=== PATIENT | male | born 1975 | race Caucasian/White ===

== ENCOUNTER 2020-03-13 14:24 | Outpatient (REF) | payer MEDICAID, SELFPAY | END 2020-03-13 14:25 | disposition home or self-care (01) | LOC: HO.LAB 14:24 | PROVIDERS: Visit Provider Internal Medicine | DX: Z20.828 Contact with and (suspected) exposure to other viral communicable diseases (principal) | CPT/HCPCS: C9803; U0003 ==

== ENCOUNTER 2020-06-29 17:29 | Emergency (ER) | payer MEDICAID, SELFPAY ==
--- NOTE | ~2020-06-29 | XR_ITS ---
EXAMINATION: XR ABDOMEN KUB CLINICAL INDICATION: Constipation COMPARISON: None TECHNIQUE: AP view of the abdomen. FINDINGS: The bowel gas pattern is normal with no evidence of ileus or obstruction. No unusual soft tissue calcifications are noted. The bones are unremarkable. XR/XR KUB IMPRESSION: Nonobstructed abdominal bowel gas pattern. Minimal stool burden.
--- NOTE | ~2020-06-29 | US_ITS ---
EXAMINATION: US SCROTUM CLINICAL INFORMATION: Decreased testicular sensation. COMPARISON: None TECHNIQUE: A sonogram of the scrotum was performed assessing solares-scale appearance and color Doppler flow. Spectral Doppler analysis of the arterial and venous flow were performed in the testes bilaterally. FINDINGS: RIGHT: Right testicle measures 4.2 x 1.7 x 2.8 cm, volume 10.1 mL. No focal testicular parenchymal lesions are visualized. Spectral Doppler analysis of the arterial and venous flow is normal in the right testis. Right epididymal head is normal in size. Multiple right epididymal head cysts are noted is the largest measuring 5 x 3 x 3 mm. Small right hydrocele and varicocele is present. A 5 x 2 mm mobile echogenic calcification is seen in the right scrotum consistent with a scrotal juju . Right epididymal Doppler flow is normal. LEFT: Left testicle measures 3.5 x 1.6 x 2.9 cm, volume 8.3 mL. No focal testicular parenchymal lesions are visualized. Spectral Doppler analysis of the arterial and venous flow is normal in the left testis. Left epididymal head is normal in size. A small left hydrocele is present with a left-sided varicocele. The largest veins measure about 2.5 mm. Left epididymal Doppler flow is normal. US/US scrotum doppler IMPRESSION: 1. Testes appear normal. 2. Bilateral small hydroceles and varicoceles, left greater than right 3. 5 mm right scrotal juju
--- NOTE | ~2020-06-29 | CT_ITS ---
EXAMINATION: CT ANGIOGRAM OF THE CHEST WITH AND WITHOUT CONTRAST (CT PULMONARY ANGIOGRAM FOR PE) CLINICAL INFORMATION: Reason for Exam tachycardia, diaphoresis COMPARISON: None TECHNIQUE: Prior to contrast administration, noncontrast localization images were obtained. Subsequently, multidetector volumetric imaging was performed from the thoracic inlet to below the diaphragms following the administration of 85 mL Omnipaque 350 intravenous contrast. No contrast reaction reported Sagittal, coronal, and MIP oblique sagittal reformatted images were obtained on the CT workstation, uploaded to PACS, and reviewed. This CT examination was performed using dose optimization techniques as appropriate, variously including the following: *Automated exposure control *Adjustment of mA and/or kV according to patient size (this includes techniques or standardized protocols for targeted exams where dose is matched to indication/reason for exam; i.e. extremities or head) *Use of iterative reconstruction technique Total exam dose-length product 1247 mGy-cm FINDINGS: QUALITY OF STUDY/CONTRAST BOLUS: Satisfactory. PULMONARY ARTERIES: No central or segmental pulmonary emboli. THORACIC AORTA: No aneurysm or dissection. A two-vessel branching pattern is noted with common origin to the left carotid and innominate artery. LUNG: Scattered peripheral groundglass infiltrates are noted throughout both lungs fairly characteristic of Covid 19. PLEURA: No pleural effusion or pneumothorax. MEDIASTINUM: Normal heart size. No pericardial effusion. Some small reactive nodes are seen in the mediastinum as well as alejandrina but there is no gross hilar or mediastinal lymphadenopathy. No evidence of septal bowing or right heart strain. CHEST WALL/AXILLA: Small bilateral axillary lymph nodes are present with normal fatty alejandrina but there is no axillary or internal mammary lymphadenopathy. OSSEOUS STRUCTURES: No acute or suspicious osseous abnormality. UPPER ABDOMEN: Hepatic steatosis is present. No reflux of contrast into the hepatic veins to suggest elevated right heart pressures. CT/CT angio chest PE protocol IMPRESSION: 1. No evidence of pulmonary emboli. 2. Diffuse groundglass opacities are seen consistent with Covid 19 or viral pneumonia. Other processes such as influenza pneumonia or organizing pneumonia, as can be seen with drug toxicity and connective tissue disease, can cause a similar imaging pattern. VTE: negative
--- NOTE | ~2020-06-29 | CT_ITS ---
EXAMINATION: CT ABDOMEN AND PELVIS WITH CONTRAST CLINICAL INFORMATION: Abdominal and back pain COMPARISON: None TECHNIQUE: Multidetector volumetric images were obtained from the superior aspect of the liver through the pubic symphysis following administration 85 mL of Omnipaque 350 intravenous contrast. Sagittal and coronal reformatted images were obtained on the technologist's workstation. Oral contrast: No This CT examination was performed using dose optimization techniques as appropriate, variously including the following: *Automated exposure control *Adjustment of mA and/or kV according to patient size (this includes techniques or standardized protocols for targeted exams where dose is matched to indication/reason for exam; i.e. extremities or head) *Use of iterative reconstruction technique DLP: 1247 mGy-cm FINDINGS: LUNG BASES: Groundglass opacities typical of Covid 19 infection are present (see chest CT report same day). LIVER, GALLBLADDER, AND BILIARY TREE: An enlarged 20 cm fatty liver is present. There are some areas of sparing adjacent to the gallbladder. No focal liver mass or bile duct dilatation is seen. The gallbladder is unremarkable with no evidence of radiopaque gallstones, gallbladder wall thickening, or obvious pericholecystic inflammatory changes. PANCREAS: Unremarkable. SPLEEN: Unremarkable. ADRENAL GLANDS: Unremarkable. KIDNEYS AND URETERS: The kidneys are normal in size, shape, and attenuation. No hydronephrosis, hydroureter, or calculi seen. Small left-sided parapelvic cysts are present. No solid renal masses are seen. No perinephric stranding. BLADDER: Unremarkable. GASTROINTESTINAL TRACT: There are diverticular changes without diverticulitis. The small and large bowel are otherwise unremarkable. The appendix is unremarkable. ABDOMINAL WALL: No significant hernia is appreciated. LYMPH NODES: Normal. VASCULAR: Unremarkable. PELVIC VISCERA: Prostate and seminal vesicles appear normal. OSSEOUS STRUCTURES: Unremarkable. CT/CT abdomen pelvis w con IMPRESSION: 1. Enlarged fatty liver. 2. Incidental note made of small left parapelvic cysts and colonic diverticula. 3. Pulmonary changes of Covid 19.
--- NOTE | ~2020-06-29 | US_ITS ---
EXAMINATION: US SCROTUM CLINICAL INFORMATION: Decreased testicular sensation. COMPARISON: None TECHNIQUE: A sonogram of the scrotum was performed assessing solares-scale appearance and color Doppler flow. Spectral Doppler analysis of the arterial and venous flow were performed in the testes bilaterally. FINDINGS: RIGHT: Right testicle measures 4.2 x 1.7 x 2.8 cm, volume 10.1 mL. No focal testicular parenchymal lesions are visualized. Spectral Doppler analysis of the arterial and venous flow is normal in the right testis. Right epididymal head is normal in size. Multiple right epididymal head cysts are noted is the largest measuring 5 x 3 x 3 mm. Small right hydrocele and varicocele is present. A 5 x 2 mm mobile echogenic calcification is seen in the right scrotum consistent with a scrotal juju . Right epididymal Doppler flow is normal. LEFT: Left testicle measures 3.5 x 1.6 x 2.9 cm, volume 8.3 mL. No focal testicular parenchymal lesions are visualized. Spectral Doppler analysis of the arterial and venous flow is normal in the left testis. Left epididymal head is normal in size. A small left hydrocele is present with a left-sided varicocele. The largest veins measure about 2.5 mm. Left epididymal Doppler flow is normal. US/US scrotum IMPRESSION: 1. Testes appear normal. 2. Bilateral small hydroceles and varicoceles, left greater than right 3. 5 mm right scrotal juju
[2020-06-29 18:30] VITALS: BP 136/88; PULSE 103; RESP 20; TEMP 36.7; O2SAT 96; BMI 34.2
[2020-06-29 19:12] LABS: Glucose Urine UA 100 MG/DL (NEG); Leukocyte Esterase Urine NEG (NEG); Nitrite Urine NEG (NEG); PH 5.5 (5.0-8.0); Specific Gravity - Urine 1.025 (1.005-1.025); Urine Blood NEG (NEG); Urine Ketones NEG (NEG); Urine Protein TRACE MG/DL (NEG-TRACE)
[2020-06-29 19:13] LABS: Appearance Urine CLEAR; Color Urine DARK YELLOW
[2020-06-29 19:56] LABS: MANUAL DIFF FLAG NO
[2020-06-29 20:00] LABS: Basophils Percent Auto 0.1 % (0-2); Eosinophils Percent Auto 0.1 % (0-4); Hematocrit 39.7 % (42-52); Hemoglobin 13.5 g/dl (14.0-18.0); Imm Gran Abs Auto 0.04 X10*3/uL (0.00-0.03); Imm Gran Pct Auto 0.4 % (0.0-0.4); Lymphocytes Absolute Auto 1.5 X10*3/uL (1.2-4.9); Lymphocytes Percent Auto 14.4 % (20-40); Mean Corpuscular Hemoglobin 31.7 pg (27.0-33.0); Mean Corpuscular Volume 93.2 fL (80-98); Mean Platelet Volume 10.8 fL (9.4-12.4); Monocytes Absolute Auto 1.1 X10*3/uL (0.1-1.2); Monocytes Percent Auto 10.9 % (2-11); Neutrophils Absolute Auto 7.5 X10*3/uL (2.0-8.3); Neutrophils Percent Auto 74.1 % (45-73); Platelet Count 235 X10*3/uL (160-400); Red Blood Count 4.26 X10*6/uL (4.60-5.80); Red Cell Distribution Width 11.9 % (11.0-16.0); White Blood Count 10.1 X10*3/uL (4.8-10.8)
[2020-06-29 20:24] LABS: Alanine Aminotransferase 76 U/L (0-40); Albumin Level 4.2 g/dL (3.5-5.0); Alkaline Phosphatase 58 U/L (39-117); Anion Gap 19 (12-20); Aspartate Amino Transferase 55 U/L (5-37); Bilirubin Total 1.4 mg/dL (0.0-1.0); Blood Urea Nitrogen 11 mg/dL (9-16); Calcium 8.3 mg/dL (8.4-10.2); Carbon Dioxide 21 mmol/L (22-29); Chloride 102 mmol/L (96-108); Creatinine Clr Calc Pharmacy 103.7; Estimated Glomerular Filt Rate > 60; Glucose Random 140 mg/dL (60-115); Potassium 4.6 mmol/L (3.3-5.1); Sodium 137 mmol/L (135-145); Total Protein 7.3 g/dL (6.5-8.0)
--- NOTE | 2020-06-29 21:43 | ED_ITS ---
HPI - General Adult General Chief complaint: General Medical Stated complaint: Back pain/Constipation Time Seen by Provider: 06/29/20 21:27 Source: patient Mode of arrival: ambulatory Limitations: no limitations History of Present Illness HPI narrative: 45-year-old male past medical history of obesity presents with multiple complaints. States that he has been sweating profusely for several days, has pain throughout his entire spine, has 10/10 abdominal pain, feels like his testicles are numb, has shortness of breath and weakness on exertion, and is very tired. He feels unsteady at times but is able to maintain balance. He has been socially isolated with the exception of his family members. Onset (ago): day(s) (Several) Location: head, chest, back, abdomen, pelvis and genitals Severity: severe Severity scale (1-10): 10 Pain Consistency: constant Relieving factors: none Exacerbating factors: movement Associated symptoms: diaphoresis, fever/chills, headaches, loss of appetite, malaise, shortness of breath and weakness Treatments prior to arrival: none Related Data Allergies Allergy/AdvReac Type Severity Reaction Status Date / Time No Known Allergies Allergy Verified 06/29/20 18:34 Review of Systems Review of Systems: Constitutional: No Fever, no Chills, positive fatigue, positive Malaise, positive diaphoresis, positive headache ENT/Mouth: No sore throat, no runny nose Eyes: No Discharge Cardiovascular: No Chest Pain, positive SOB on exertion Respiratory: No Cough, No Sputum, No Wheezing, No Smoke Exposure, No Dyspnea Gastrointestinal: Positive abdominal pain and excessive flatulence, No Nausea, No Vomiting, No Diarrhea Genitourinary: Positive testicular pain and numbness, no irregular bleeding, No Dysuria, No Urinary Frequency, No Hematuria, No Urinary Incontinence, No Urgency, No Flank Pain, Musculoskeletal: positive Myalgia Skin: No rash Neuro: Positive Headache Yes all other systems are reviewed and are negative FORMERLY [facility] Past Medical History Attestation statement: The following information was validated with the patient. Source: old records reviewed Medical History (Updated 06/30/20 @ 00:50 by Gretel Rhoades NP) High cholesterol Social History Social History Advance Directives: No Advance Directives Information Provided: Yes Physical Exam Vital Signs: Vital Signs: Last Vital Signs Temp 99.5 F 06/29/20 23:35 Pulse 86 06/29/20 23:35 Resp 16 06/29/20 23:35 BP 116/66 06/29/20 23:35 Pulse Ox 99 06/29/20 23:35 Body Mass Index 34.2 Appearance: Alert. Oriented X3. Moderate distress. Head: Normal external exam. Normocephalic. Atraumatic. No Ewing signs noted. No raccoon eyes noted Eyes: PERRLA. EOMI. Conjunctiva and sclera normal. Eyelids normal. ENT: TM's Normal. Pharynx normal. Uvula midline. Moist mucous membranes. No trismus noted. No drooling noted. No muffled voice noted. Neck: Normal inspection. Neck supple. No adenopathy. Thyroid Normal. No meningeal signs. No neck mass noted. CVS: Normal heart rate and rhythm. Heart sound normal. No murmurs noted. Pulses equal to all extremities. Respiratory: No respiratory distress. Painless inspiration. Breath sounds normal. No wheezes/rales/rhonchi noted. Chest nontender. No accessory muscle usage noted or decreased air movement noted. Abdomen: Soft and tender to palpation diffusely. Bowel sounds normal in all 4 quadrants. No distention noted. No visible injury noted. Genitourinary: Normal testicular exam, decreased sensation to the perineal area, normal rectal tone Back: No CVA tenderness. No vertebral tenderness noted, Full range of motion noted. Skin: Skin warm and dry. Normal skin color. Normal skin turgor. No rashes/lesions/lacerations noted. Extremities: No lower extremity edema. Extremities exhibit normal range of motion. Extremities nontender. Neuro: cranial nerves 2-12 intact, no focal neural deficits, strength 5/5 to all extremities, No motor deficit. No sensory deficit. Reflexes normal. Course Course Course Narrative: 45-year-old male presents with multiple complaints. We will rule out torsion, acute abdomen, order COVID testing. Based on patient's testicular and genitourinary complaints we will order scrotal ultrasound with Doppler, rectal exam was normal with normal tone. Patient has not reported incontinence of bowel and bladder, low likelihood of cauda equina. H&H 13.5/39.7, no prior lab values for this patient. Glucose is 140, could possibly be diabetes verses hyperglycemia due to illness. Patient is COVID positive. CT scan of chest to rule out PE negative, does show ground-glass opacities consistent with COVID-19. CT scan of abdomen and pelvis show incidental findings of fatty liver, left pelvic cysts, and diverticulosis without diverticulitis. Testicular ultrasound shows bilateral small hydroceles and varicoceles with a 5 mm scrotal juju. Patient can follow-up with primary care physician for abdominal CT incidental findings as well as Urology for hydrocele, varicoceles and juju. Patient will be discharged home with COVID-19 instructions, patient verbalized understanding of and agrees to plan of care discharge home. Medical Decision Making Differential Diagnosis Differential Diagnosis: acute abdomen, viral syndrome, COVID-19, testicular torsion Medical Records Medical records reviewed: Yes I reviewed the patient's medical records. Lab Data Lab results reviewed: Yes I reviewed the patient's lab results. Result diagrams: 06/29/20 19:48 06/29/20 19:48 Labs: Lab Results 06/29/20 06/29/20 06/29/20 Range/Units 18:40 19:48 19:48 WBC 10.1 (4.8-10.8) X10*3/uL RBC 4.26 L (4.60-5.80) X10*6/uL Hgb 13.5 L (14.0-18.0) g/dl Hct 39.7 L (42-52) % MCV 93.2 (80-98) fL MCH 31.7 (27.0-33.0) pg MCHC 34.0 (31.0-36.0) g/dl RDW 11.9 (11.0-16.0) % Plt Count 235 (160-400) X10*3/uL MPV 10.8 (9.4-12.4) fL Immature Gran % (Auto) 0.4 (0.0-0.4) % Neut % (Auto) 74.1 H (45-73) % Lymph % (Auto) 14.4 L (20-40) % Cherry % (Auto) 10.9 (2-11) % Eos % (Auto) 0.1 (0-4) % Baso % (Auto) 0.1 (0-2) % Lymph # (Auto) 1.5 (1.2-4.9) X10*3/uL Cherry # (Auto) 1.1 (0.1-1.2) X10*3/uL Eos # (Auto) 0.0 (0.0-0.4) X10*3/uL Baso # (Auto) 0.0 (0.0-0.2) X10*3/uL Abs Immat Gran (auto) 0.04 H (0.00-0.03) X10*3/uL Absolute Neuts (auto) 7.5 (2.0-8.3) X10*3/uL Absolute Nucleated RBC 0.000 (0.0-0.012) X10*3/uL Nucleated RBC % (auto) 0.0 (0.0-0.2) /100WBC Hold Blue Top SEE NOTE Sodium (135-145) mmol/L Potassium (3.3-5.1) mmol/L Chloride (96-108) mmol/L Carbon Dioxide (22-29) mmol/L Anion Gap (12-20) BUN (9-16) mg/dL Creatinine (0.5-1.4) mg/dL Estim Creat Clear Calc Estimated GFR Random Glucose (60-115) mg/dL Calcium (8.4-10.2) mg/dL Total Bilirubin (0.0-1.0) mg/dL AST (5-37) U/L ALT (0-40) U/L Alkaline Phosphatase (39-117) U/L Total Protein (6.5-8.0) g/dL Albumin (3.5-5.0) g/dL Urine Color DARK YELLOW Urine Appearance CLEAR Urine pH 5.5 (5.0-8.0) Ur Specific [place] 1.025 (1.005-1.025) Urine Protein TRACE (NEG-TRACE) MG/DL Urine Glucose (UA) 100 H (NEG) MG/DL Urine Ketones NEG (NEG) MG/DL Urine Blood NEG (NEG) Urine Nitrite NEG (NEG) Ur Leukocyte Esterase NEG (NEG) Stool Occult Blood (NEGATIVE) Coronavirus (PCR) (Negative) Influenza Type A (PCR) (Negative) Influenza Type B (PCR) (Negative) RSV RNA Qual (PCR) (Negative) 03/29/21 03/29/21 03/30/21 Range/Units 19:48 23:33 00:17 WBC (4.8-10.8) X10*3/uL RBC (4.60-5.80) X10*6/uL Hgb (14.0-18.0) g/dl Hct (42-52) % MCV (80-98) fL MCH (27.0-33.0) pg MCHC (31.0-36.0) g/dl RDW (11.0-16.0) % Plt Count (160-400) X10*3/uL MPV (9.4-12.4) fL Immature Gran % (Auto) (0.0-0.4) % Neut % (Auto) (45-73) % Lymph % (Auto) (20-40) % Cherry % (Auto) (2-11) % Eos % (Auto) (0-4) % Baso % (Auto) (0-2) % Lymph # (Auto) (1.2-4.9) X10*3/uL Cherry # (Auto) (0.1-1.2) X10*3/uL Eos # (Auto) (0.0-0.4) X10*3/uL Baso # (Auto) (0.0-0.2) X10*3/uL Abs Immat Gran (auto) (0.00-0.03) X10*3/uL Absolute Neuts (auto) (2.0-8.3) X10*3/uL Absolute Nucleated RBC (0.0-0.012) X10*3/uL Nucleated RBC % (auto) (0.0-0.2) /100WBC Hold Blue Top Sodium 137 (135-145) mmol/L Potassium 4.6 (3.3-5.1) mmol/L Chloride 102 (96-108) mmol/L Carbon Dioxide 21 L (22-29) mmol/L Anion Gap 19 (12-20) BUN 11 (9-16) mg/dL Creatinine 1.03 (0.5-1.4) mg/dL Estim Creat Clear Calc 103.7 Estimated GFR > 60 Random Glucose 140 H (60-115) mg/dL Calcium 8.3 L (8.4-10.2) mg/dL Total Bilirubin 1.4 H (0.0-1.0) mg/dL AST 55 H (5-37) U/L ALT 76 H (0-40) U/L Alkaline Phosphatase 58 (39-117) U/L Total Protein 7.3 (6.5-8.0) g/dL Albumin 4.2 (3.5-5.0) g/dL Urine Color Urine Appearance Urine pH (5.0-8.0) Ur Specific [place] (1.005-1.025) Urine Protein (NEG-TRACE) MG/DL Urine Glucose (UA) (NEG) MG/DL Urine Ketones (NEG) MG/DL Urine Blood (NEG) Urine Nitrite (NEG) Ur Leukocyte Esterase (NEG) Stool Occult Blood NEGATIVE (NEGATIVE) Coronavirus (PCR) POSITIVE A (Negative) Influenza Type A (PCR) NEGATIVE (Negative) Influenza Type B (PCR) NEGATIVE (Negative) RSV RNA Qual (PCR) NEGATIVE (Negative) Imaging Data Scrotal ultrasound: Attestation: I personally reviewed and interpreted this imaging study as follows: Radiologist's impression: EXAMINATION: US SCROTUM CLINICAL INFORMATION: Decreased testicular sensation. COMPARISON: None TECHNIQUE: A sonogram of the scrotum was performed assessing solares-scale appearance and color Doppler flow. Spectral Doppler analysis of the arterial and venous flow were performed in the testes bilaterally. FINDINGS: RIGHT: Right testicle measures 4.2 x 1.7 x 2.8 cm, volume 10.1 mL. No focal testicular parenchymal lesions are visualized. Spectral Doppler analysis of the arterial and venous flow is normal in the right testis. Right epididymal head is normal in size. Multiple right epididymal head cysts are noted is the largest measuring 5 x 3 x 3 mm. Small right hydrocele and varicocele is present. A 5 x 2 mm mobile echogenic calcification is seen in the right scrotum consistent with a scrotal juju . Right epididymal Doppler flow is normal. LEFT: Left testicle measures 3.5 x 1.6 x 2.9 cm, volume 8.3 mL. No focal testicular parenchymal lesions are visualized. Spectral Doppler analysis of the arterial and venous flow is normal in the left testis. Left epididymal head is normal in size. A small left hydrocele is present with a left-sided varicocele. The largest veins measure about 2.5 mm. Left epididymal Doppler flow is normal. US/US scrotum IMPRESSION: 1. Testes appear normal. 2. Bilateral small hydroceles and varicoceles, left greater than right 3. 5 mm right scrotal juju Chest for PE: Attestation: I personally reviewed and interpreted this imaging study as follows: Radiologist's impression: EXAMINATION: CT ANGIOGRAM OF THE CHEST WITH AND WITHOUT CONTRAST (CT PULMONARY ANGIOGRAM FOR PE) CLINICAL INFORMATION: Reason for Exam tachycardia, diaphoresis COMPARISON: None TECHNIQUE: Prior to contrast administration, noncontrast localization images were obtained. Subsequently, multidetector volumetric imaging was performed from the thoracic inlet to below the diaphragms following the administration of 85 mL Omnipaque 350 intravenous contrast. No contrast reaction reported Sagittal, coronal, and MIP oblique sagittal reformatted images were obtained on the CT workstation, uploaded to PACS, and reviewed. This CT examination was performed using dose optimization techniques as appropriate, variously including the following: *Automated exposure control *Adjustment of mA and/or kV according to patient size (this includes techniques or standardized protocols for targeted exams where dose is matched to indication/reason for exam; i.e. extremities or head) *Use of iterative reconstruction technique Total exam dose-length product 1247 mGy-cm FINDINGS: QUALITY OF STUDY/CONTRAST BOLUS: Satisfactory. PULMONARY ARTERIES: No central or segmental pulmonary emboli. THORACIC AORTA: No aneurysm or dissection. A two-vessel branching pattern is noted with common origin to the left carotid and innominate artery. LUNG: Scattered peripheral groundglass infiltrates are noted throughout both lungs fairly characteristic of Covid 19. PLEURA: No pleural effusion or pneumothorax. MEDIASTINUM: Normal heart size. No pericardial effusion. Some small reactive nodes are seen in the mediastinum as well as alejandrina but there is no gross hilar or mediastinal lymphadenopathy. No evidence of septal bowing or right heart strain. CHEST WALL/AXILLA: Small bilateral axillary lymph nodes are present with normal fatty alejandrina but there is no axillary or internal mammary lymphadenopathy. OSSEOUS STRUCTURES: No acute or suspicious osseous abnormality. UPPER ABDOMEN: Hepatic steatosis is present. No reflux of contrast into the hepatic veins to suggest elevated right heart pressures. CT/CT angio chest PE protocol IMPRESSION: 1. No evidence of pulmonary emboli. 2. Diffuse groundglass opacities are seen consistent with Covid 19 or viral pneumonia. Other processes such as influenza pneumonia or organizing pneumonia, as can be seen with drug toxicity and connective tissue disease, can cause a similar imaging pattern. VTE: negative CT abdomen pelvis: Attestation: I personally reviewed and interpreted this imaging study as follows: Radiologist's impression: EXAMINATION: CT ABDOMEN AND PELVIS WITH CONTRAST CLINICAL INFORMATION: Abdominal and back pain COMPARISON: None TECHNIQUE: Multidetector volumetric images were obtained from the superior aspect of the liver through the pubic symphysis following administration 85 mL of Omnipaque 350 intravenous contrast. Sagittal and coronal reformatted images were obtained on the technologist's workstation. Oral contrast: No This CT examination was performed using dose optimization techniques as appropriate, variously including the following: *Automated exposure control *Adjustment of mA and/or kV according to patient size (this includes techniques or standardized protocols for targeted exams where dose is matched to indication/reason for exam; i.e. extremities or head) *Use of iterative reconstruction technique DLP: 1247 mGy-cm FINDINGS: LUNG BASES: Groundglass opacities typical of Covid 19 infection are present (see chest CT report same day). LIVER, GALLBLADDER, AND BILIARY TREE: An enlarged 20 cm fatty liver is present. There are some areas of sparing adjacent to the gallbladder. No focal liver mass or bile duct dilatation is seen. The gallbladder is unremarkable with no evidence of radiopaque gallstones, gallbladder wall thickening, or obvious pericholecystic inflammatory changes. PANCREAS: Unremarkable. SPLEEN: Unremarkable. ADRENAL GLANDS: Unremarkable. KIDNEYS AND URETERS: The kidneys are normal in size, shape, and attenuation. No hydronephrosis, hydroureter, or calculi seen. Small left-sided parapelvic cysts are present. No solid renal masses are seen. No perinephric stranding. BLADDER: Unremarkable. GASTROINTESTINAL TRACT: There are diverticular changes without diverticulitis. The small and large bowel are otherwise unremarkable. The appendix is unremarkable. ABDOMINAL WALL: No significant hernia is appreciated. LYMPH NODES: Normal. VASCULAR: Unremarkable. PELVIC VISCERA: Prostate and seminal vesicles appear normal. OSSEOUS STRUCTURES: Unremarkable. CT/CT abdomen pelvis w con IMPRESSION: 1. Enlarged fatty liver. 2. Incidental note made of small left parapelvic cysts and colonic diverticula. 3. Pulmonary changes of Covid 19. Discharge Plan Discharge Clinical Impression: COVID-19, Testicular abnormality Back pain Qualifiers: Back pain location: thoracic back pain Chronicity: acute Back pain laterality: midline Qualified Code(s): M54.6 - Pain in thoracic spine Patient Disposition: Home, Self-Care Instructions: Hydrocele (ED), Back Pain (ED), COVID-19 (Coronavirus Disease 2019) (ED) Additional Instructions: You were evaluated for multiple symptoms. Scrotal ultrasound shows bilateral hydroceles. Please follow-up with Urology. We provided you a phone number for Dr. Hu. Please call and make an appointment as an outpatient. We tested for COVID-19, you are positive. You must maintain social isolation per State and Federal guidelines. It is your responsibility to maintain these guidelines. Please inform your family members that there is a high likelihood that they are all COVID positive. Your chest CT scan was negative for pulmonary embolism, or blood clots in the lungs, but did show changes consistent with COVID-19. Your oxygenation level is normal, you do not require any antibiotics for your symptoms. CT scan of the abdomen and pelvis showed diverticulosis, small left-sided parapelvic cyst, and a fatty liver. Please follow-up with primary care physician for these findings. Thank you for choosing this emergency department for evaluation. Please follow-up with primary care physician as needed. Return to the emergency department for any new, concerning, or worsening symptoms. Stand Alone Forms: Work/School Release
[2020-06-29 23:35] VITALS: BP 116/66; PULSE 86; RESP 16; TEMP 37.5; O2SAT 99
[2020-06-30 00:18] LABS: Influenza A PCR NEGATIVE (Negative); Influenza B PCR NEGATIVE (Negative); Resp Syncy Virus RNA Qual PCR NEGATIVE (Negative)
[2020-06-30 00:30] LABS: SARS COV2 PCR INHOUSE POSITIVE (Negative)
[2020-06-30 00:31] LABS: OBS Int Ctl Valid YES; OBS1 NEGATIVE (NEGATIVE)
== END 2020-06-30 02:00 | disposition home or self-care (01) ==
PROVIDERS: Nurse Practitioner Family; Emergency Provider Student in an Organized Health Care Education/Training Program
DX: U07.1 COVID-19 (principal); N43.3 Hydrocele, unspecified; M54.6 Pain in thoracic spine; K57.92 Diverticulitis of intestine, part unspecified, without perforation or abscess without bleeding; K76.0 Fatty (change of) liver, not elsewhere classified
CPT/HCPCS: 0241U; 36415; 71275; 74018; 74177; 76870; 80053; 81003; 82272; 85025; 93975; 99283; 99284; Q9967

== ENCOUNTER 2020-10-30 11:18 | Emergency (ER) | payer MEDICAID, SELFPAY ==
--- NOTE | ~2020-10-30 | US_ITS ---
EXAMINATION: US VENOUS ULTRASOUND WITH DOPPLER LOWER EXTREMITY, LEFT CLINICAL INFORMATION: Left lower extremity pain. Assess for occult DVT. COMPARISON: None TECHNIQUE: Ultrasound of the deep veins is performed from the hip to the calf with compression sonography and color and pulse Doppler assessment. Spectral analysis with color-flow imaging is performed. FINDINGS: There is normal venous compression and respiratory variation and augmented flow. The visualized common femoral vein, superficial femoral vein, profunda femoral vein, popliteal vein, and the trifurcation region shows no evidence of deep venous thrombosis. No popliteal fossa cyst. Incidental left inguinal node demonstrated with normal deborah architecture and short axis dimension 0.7 cm. US/US venous duplex LE LT IMPRESSION: No DVT demonstrated in the left lower extremity.
--- NOTE | ~2020-10-30 | XR_ITS ---
EXAMINATION: XR TIBIA AND FIBULA, LEFT CLINICAL INFORMATION: Pain. COMPARISON: None TECHNIQUE: AP and lateral views of the left tibia and fibula were obtained. FINDINGS: The bones and soft tissues are normal. No fracture. No osseous lesions. XR/XR tibia fibula LT 2V IMPRESSION: Normal left tibia and fibula. No soft tissue abnormality seen.
[2020-10-30 11:50] VITALS: BP 139/92; PULSE 92; RESP 18; TEMP 35.5; O2SAT 98; BMI 31.5
--- NOTE | 2020-10-30 12:32 | PC.NURSE ---
describes pain and stiffness RLE. no noted injuries or swelling/deformity. pt ambulates with slight limp. waxes floors for a living.
--- NOTE | 2020-10-30 12:42 | ED.EXTPRO ---
HPI - Extremity Problem General Chief complaint: Extremity Problem Stated complaint: right leg swollen Time Seen by Provider: 10/30/20 12:42 History of Present Illness HPI Narrative: Patient complains of pain in his left lower leg for about a week often on, he does heavy work with lots of jumping up and down from a truck any just restarted work and thinks it may be from a muscle strain, he is able to walk but it is sometimes uncomfortable at this point he has no trouble walking, no fever no difficulty breathing no traumatic injury beyond overuse Related Data Previous Rx's Medication Instructions Recorded ibuprofen 600 mg tablet 600 mg PO Q6H PRN #20 tab 10/30/20 Allergies Allergy/AdvReac Type Severity Reaction Status Date / Time No Known Allergies Allergy Verified 06/29/20 18:34 Review of Systems Review of Systems: Positive for left lower leg pain Negatives are no fever no chills no fainting no feeling pain no chest pain no shortness of breath no pain with deep breath no cough no abdominal pain no nausea or vomiting no joint pain no numbness weakness or tingling no rash Yes all other systems are reviewed and are negative [facility] Past Medical History Source: nursing notes reviewed Medical History (Updated 10/30/20 @ 15:01 by FIONA Hall) High cholesterol Social History Social History Advance Directives: No Advance Directives Information Provided: No Physical Exam Vital Signs: Vital Signs: Last Vital Signs Temp 95.9 F L 10/30/20 11:50 Pulse 92 10/30/20 11:50 Resp 18 10/30/20 11:50 BP 139/92 H 10/30/20 11:50 Pulse Ox 98 10/30/20 11:50 Body Mass Index 31.5 General appearance no acute distress Head is normocephalic atraumatic Neck is supple Respiratory no distress Chest clear to auscultation bilateral full symmetric equal breath sounds No pleuritic pain Extremities is full range of motion x4 including the left leg which has full range of motion at the hip knee and ankle, the gait there is no limp, there is tenderness over both anterior and posterior lower leg there is no redness no warmth no wound no rash, there is normal appearance of the skin there is no swelling and there is the tenderness of the anterior and posterior lower leg, it is neurovascular intact distal with normal sensation and motor strength Other extremities normal Skin no rash Course Course Course Narrative: The left lower leg which had tenderness both in front and back was x-rayed and x-ray was normal Ultrasound was done to rule out DVT no clot no acute findings He ambulates easily with no limp and there was no evidence of skin infection or cellulitis and patient is discharged with a diagnosis of muscle strain Discharge Plan Discharge Clinical Impression: Muscle strain Patient Disposition: Home, Self-Care Additional Instructions: Pain is likely from a muscle strain in the left leg Use Motrin as needed Return any time any worse condition or any concerns Ultrasound and x-ray were normal Prescriptions: New ibuprofen 600 mg tablet 600 mg PO Q6H PRN (Reason: pain) Qty: 20 RF: 0 Stand Alone Forms: Work/School Release Interventions: ED Discharge Assessment Last Done: 10/30/20 15:02 Discharge Date/Time: 10/30/20 15:03
== END 2020-10-30 15:03 | disposition home or self-care (01) ==
PROVIDERS: Emergency Provider Emergency Medicine
DX: S86.912A Strain of unspecified muscle(s) and tendon(s) at lower leg level, left leg, initial encounter (principal); X50.0XXA Overexertion from strenuous movement or load, initial encounter; M79.662 Pain in left lower leg; Y93.89 Activity, other specified; Y92.9 Unspecified place or not applicable; Y99.0 Civilian activity done for income or pay
CPT/HCPCS: 73590; 93971; 99283; 99284

== ENCOUNTER 2022-05-11 14:18 | Emergency (ER) | payer MEDICAID, SELFPAY ==
[2022-05-11 14:23] VITALS: BP 143/94; PULSE 96; RESP 19; TEMP 36.6; O2SAT 96; BMI 32.8
--- NOTE | 2022-05-11 14:24 | ED_ITS ---
HPI - General Adult General Chief complaint: General Medical <Therese Reyes NP - Last Filed: 05/11/22 14:25> Stated complaint: both feet burning sensation <Therese Reyes NP - Last Filed: 05/11/22 14:25> Time Seen by Provider: 05/11/22 17:53 <Therese Reyes NP - Last Filed: 05/11/22 14:25> Source: patient <Gretel Rhoades NP - Last Filed: 05/12/22 01:30> Mode of arrival: ambulatory <Gretel Rhoades NP - Last Filed: 05/12/22 01:30> Limitations: no limitations <Gretel Rhoades NP - Last Filed: 05/12/22 01:30> History of Present Illness HPI narrative: 47-year-old male presents with bilateral foot pain and burning, states it is difficult to ambulate, more pain on the right than the left. Most the pain is in his hallux. <Gretel Rhoades NP - Last Filed: 05/12/22 01:30> Onset (ago): day(s) <Gretel Rhoades NP - Last Filed: 05/12/22 01:30> Location: left, right and lower extremity <Gretel Rhoades NP - Last Filed: 05/12/22 01:30> Radiation: non-radiation <Gretel Rhoades NP - Last Filed: 05/12/22 01:30> Severity: moderate <Gretel Rhoades NP - Last Filed: 05/12/22 01:30> Severity scale (1-10): 6 <Gretel Rhoades NP - Last Filed: 05/12/22 01:30> Quality: aching and constant <Gretel Rhoades NP - Last Filed: 05/12/22 01:30> Pain Consistency: constant <Gretel Rhoades NP - Last Filed: 05/12/22 01:30> Relieving factors: none <Gretel Rhoades NP - Last Filed: 05/12/22 01:30> Exacerbating factors: movement <Gretel Rhoades NP - Last Filed: 05/12/22 01:30> Associated symptoms: denies other symptoms <Gretel Rhoades NP - Last Filed: 05/12/22 01:30> Treatments prior to arrival: NSAID <Gretel Rhoades NP - Last Filed: 05/12/22 01:30> Related Data Home medications: Previous Rx's Medication Instructions Recorded ibuprofen 600 mg tablet 600 mg PO Q6H PRN pain #20 tabs 10/30/20 colchicine 0.6 mg capsule 0.6 mg PO DAILY 30 days #30 caps 05/11/22 prednisone 20 mg tablet 60 mg PO DAILY 5 days #15 tabs 05/11/22 <Therese Reyes NP - Last Filed: 05/11/22 14:25> Allergies/adverse reactions: Allergies Allergy/AdvReac Type Severity Reaction Status Date / Time No Known Allergies Allergy Verified 06/29/20 18:34 <Therese Reyes NP - Last Filed: 05/11/22 14:25> Review of Systems Review of Systems: Constitutional: No Fever, No Chills Cardiovascular: No Chest Pain, No SOB Respiratory: No Cough, No Dyspnea Gastrointestinal: No Nausea, No Vomiting, No Diarrhea, No abdominal Pain Musculoskeletal: positive bilateral foot pain, No Myalgias, No Joint Swelling Skin: No Skin lacerations, No rash Neuro: No Weakness, No Numbness, No Dizziness, No Headache <Gretel Rhoades NP - Last Filed: 05/12/22 01:30> Yes all other systems are reviewed and are negative <Gretel Rhoades NP - Last Filed: 05/12/22 01:30> PMFSH Past Medical History Attestation statement: The following information was validated with the patient. <Gretel Rhoades NP - Last Filed: 05/12/22 01:30> Source: old records reviewed <Gretel Rhoades NP - Last Filed: 05/12/22 01:30> Medical History: Medical History High cholesterol <Therese eRyes NP - Last Filed: 05/11/22 14:25> Social History Social History: Social History Alcohol intake: unknown Smoked in Last 30 Days: No Use of substances other than those prescribed or required for medical reasons: Unknown Advance Directives: No Advance Directives Information Provided: No <Therese Reyes NP - Last Filed: 05/11/22 14:25> Physical Exam ED Vital Signs: Vital Signs - 24 hr 05/11/22 14:23 05/11/22 17:38 05/11/22 20:51 Temperature 98 F 98.1 F 98.1 F Pulse Rate 96 87 75 Respiratory Rate 19 20 16 Blood Pressure 143/94 H 139/84 113/73 Pulse Oximetry 96 97 95 Oxygen Delivery Method Room Air Room Air Room Air BMI result Body Mass Index 32.8 <Therese Reyes NP - Last Filed: 05/11/22 14:25> Vital Signs - 24 hr 05/11/22 14:23 05/11/22 17:38 05/11/22 20:51 Temperature 98 F 98.1 F 98.1 F Pulse Rate 96 87 75 Respiratory Rate 19 20 16 Blood Pressure 143/94 H 139/84 113/73 Pulse Oximetry 96 97 95 Oxygen Delivery Method Room Air Room Air Room Air BMI result Body Mass Index 32.8 <Gretel Rhoades NP - Last Filed: 05/12/22 01:30> Appearance: Alert. Oriented X3. No acute distress. Eyes: Pupils equal, round and reactive to light. ENT: Pharynx normal. Neck: Normal inspection. Neck supple. CVS: Normal heart rate and rhythm. Pulses normal. Respiratory: No respiratory distress. Breath sounds normal. Skin: Skin warm and dry. Normal skin color. Normal skin turgor. Extremities: No lower extremity edema. Erythema noted to bilateral hallux, brisk capillary refill, equal pulses. Neuro: No motor deficit. No sensory deficit. Cranial nerves 2-12 intact. <Gretel Rhoades NP - Last Filed: 05/12/22 01:30> Course Course Course Narrative: This is a rapid medical exam. Defer additional HPI, ROS, PE department provider. 47-year-old male with no known medical history presents with bilateral feet burning, pain, intermittent swelling which has occurred intermittently over weeks. No history of DM. Will check labs, VSS <Therese Reyes NP - Last Filed: 05/11/22 14:25> This is a rapid medical exam. Defer additional HPI, ROS, PE department provider. 47-year-old male with no known medical history presents with bilateral feet burning, pain, intermittent swelling which has occurred intermittently over weeks. No history of DM. Will check labs, VSS 47-year-old male presents for evaluation of bilateral foot pain and burning. States the pain in his feet is intense, and worse with palpation and ambulation. Patient had to leave work today because of the pain. He does not report any trauma or falls. Denies fevers and chills. Examination of the feet indicate redness to bilateral hallux, with full range of motion and brisk capillary refill. Lab values were completed while patient was in the emergency department waiting room, white count is 11.1, BUN is 24. Will give a L of fluid. Will add on uric acid, A1c, and vitamin B12 and vitamin d levels. Patient does have a history of alcoholism however he stopped drinking several months ago, has changed his lifestyle, has lost weight, and eats healthy. While patient does have elevated white count of 11.1, feet do not look like cellulitis, low likeli barbour of fracture as patient does not have osteoporosis and has no traumatic injury. Has full range of motion to all of his digits and ankles. Neurovascularly intact. Uric acid elevated at 8.7, symptoms consistent with gout, will give colchicine and prednisone for treatment. Patient is trying to establish primary care, would like to stay in the [facility]. Will refer to Dr. Jacob at the urgent care clinic to establish primary care access. Patient verbalized understanding of and agrees plan of care discharge home. Verbalized understanding of signs and symptoms indicating need for emergent intervention. <Gretel Rhoades MEDICAL SALES ASSOCIATE - Last Filed: 05/12/22 01:30> Medications Administered Discontinued Medications Generic Name Dose Route Start Last Admin Trade Name Freq PRN Reason Stop Dose Admin Colchicine 0.6 mg 05/11/22 22:11 05/11/22 22:40 Colchicine 0.6 Mg Tablet PO 05/11/22 22:12 0.6 mg ONCE ONE Administration Sodium Chloride 1,000 mls @ 999 mls/hr 05/11/22 19:00 05/11/22 22:40 Ns IVCONT 05/11/22 20:00 Infused .Q1H1M SHREYA Infusion Ketorolac Tromethamine 30 mg 05/11/22 19:45 05/11/22 19:49 Ketorolac Tromethamine 30 Mg/Ml Vial IVPUSH 05/11/22 19:46 30 mg ONCE ONE Administration Prednisone 60 mg 05/11/22 22:11 05/11/22 22:40 Prednisone 20 Mg Tablet PO 05/11/22 22:12 60 mg ONCE ONE Administration <Therese Reyes NP - Last Filed: 05/11/22 14:25> Medications Administered Discontinued Medications Generic Name Dose Route Start Last Admin Trade Name Handy PRN Reason Stop Dose Admin Colchicine 0.6 mg 05/11/22 22:11 05/11/22 22:40 Colchicine 0.6 Mg Tablet PO 05/11/22 22:12 0.6 mg ONCE ONE Administration Sodium Chloride 1,000 mls @ 999 mls/hr 05/11/22 19:00 05/11/22 22:40 Ns IVCONT 05/11/22 20:00 Infused .Q1H1M SHREYA Infusion Ketorolac Tromethamine 30 mg 05/11/22 19:45 05/11/22 19:49 Ketorolac Tromethamine 30 Mg/Ml Vial IVPUSH 05/11/22 19:46 30 mg ONCE ONE Administration Prednisone 60 mg 05/11/22 22:11 05/11/22 22:40 Prednisone 20 Mg Tablet PO 05/11/22 22:12 60 mg ONCE ONE Administration <Gretel Rhoades NP - Last Filed: 05/12/22 01:30> Medical Decision Making Differential Diagnosis Differential Diagnoses: The differential diagnosis associated with the presentation includes <Gretel Rhoades NP - Last Filed: 05/12/22 01:30> Cellulitis, gout, diabetes <Gretel Rhoades NP - Last Filed: 05/12/22 01:30> Lab Data MDM Lab Attestation statement: I reviewed the patient's lab results. <Gretel Rhoades NP - Last Filed: 05/12/22 01:30> Result Diagrams: 05/11/22 14:34 05/11/22 14:34 <Therese Reyes NP - Last Filed: 05/11/22 14:25> Labs: Lab Results 05/11/22 05/11/22 Range/Units 14:34 14:34 WBC 11.1 H (4.8-10.8) X10*3/uL RBC 4.74 (4.60-5.80) X10*6/uL Hgb 14.7 (14.0-18.0) g/dl Hct 42.7 (42.0-52.0) % MCV 90.1 (80.0-98.0) fL MCH 31.0 (27.0-33.0) pg MCHC 34.4 (31.0-36.0) g/dl RDW 12.3 (11.0-16.0) % Plt Count 305 (160-400) X10*3/uL MPV 10.3 (9.4-12.4) fL Immature Gran % (Auto) 0.5 H (0.0-0.4) % Neut % (Auto) 64.0 (45-73) % Lymph % (Auto) 24.3 (20-40) % [place] % (Auto) 8.4 (2-11) % Eos % (Auto) 2.4 (0-4) % Baso % (Auto) 0.4 (0-2) % Lymph # (Auto) 2.7 (1.2-4.9) X10*3/uL [place] # (Auto) 0.9 (0.1-1.2) X10*3/uL Eos # (Auto) 0.3 (0.0-0.4) X10*3/uL Baso # (Auto) 0.0 (0.0-0.2) X10*3/uL Abs Immat Gran (auto) 0.06 H (0.00-0.03) X10*3/uL Absolute Neuts (auto) 7.1 (2.0-8.3) x10*3/uL Absolute Nucleated RBC 0.000 (0.0-0.012) X10*3/uL Nucleated RBC % (auto) 0.0 (0.0-0.2) /100WBC Sodium 141 (135-145) mmol/L Potassium 4.6 (3.3-5.1) mmol/L Chloride 102 (96-108) mmol/L Carbon Dioxide 26 (22-29) mmol/L Anion Gap 18 (12-20) BUN 24 H (9-16) mg/dL Creatinine 1.06 (0.5-1.4) mg/dL Estim Creat Clear Calc 96.7 Estimated GFR > 60 Random Glucose 112 (60-115) mg/dL Uric Acid 8.7 H (3.4-7.0) mg/dL Calcium 9.7 D (8.4-10.2) mg/dL Magnesium 2.0 (1.6-2.6) mg/dL Total Bilirubin 1.0 (0.0-1.0) mg/dL Direct Bilirubin 0.2 (0.0-0.5) mg/dL AST 15 (5-37) U/L ALT 22 (0-40) U/L Alkaline Phosphatase 59 (39-117) U/L Total Protein 7.2 (6.5-8.0) g/dL Albumin 4.4 (3.5-5.0) g/dL Vitamin B12 511 (200-900) pg/mL 25-OH Vitamin D Total 26.5 (>30) ng/mL <Therese Reyes, MEDICAL SALES ASSOCIATE - Last Filed: 05/11/22 14:25> Lab Results 05/11/22 05/11/22 Range/Units 14:34 14:34 WBC 11.1 H (4.8-10.8) X10*3/uL RBC 4.74 (4.60-5.80) X10*6/uL Hgb 14.7 (14.0-18.0) g/dl Hct 42.7 (42.0-52.0) % MCV 90.1 (80.0-98.0) fL MCH 31.0 (27.0-33.0) pg MCHC 34.4 (31.0-36.0) g/dl RDW 12.3 (11.0-16.0) % Plt Count 305 (160-400) X10*3/uL MPV 10.3 (9.4-12.4) fL Immature Gran % (Auto) 0.5 H (0.0-0.4) % Neut % (Auto) 64.0 (45-73) % Lymph % (Auto) 24.3 (20-40) % [place] % (Auto) 8.4 (2-11) % Eos % (Auto) 2.4 (0-4) % Baso % (Auto) 0.4 (0-2) % Lymph # (Auto) 2.7 (1.2-4.9) X10*3/uL [place] # (Auto) 0.9 (0.1-1.2) X10*3/uL Eos # (Auto) 0.3 (0.0-0.4) X10*3/uL Baso # (Auto) 0.0 (0.0-0.2) X10*3/uL Abs Immat Gran (auto) 0.06 H (0.00-0.03) X10*3/uL Absolute Neuts (auto) 7.1 (2.0-8.3) x10*3/uL Absolute Nucleated RBC 0.000 (0.0-0.012) X10*3/uL Nucleated RBC % (auto) 0.0 (0.0-0.2) /100WBC Sodium 141 (135-145) mmol/L Potassium 4.6 (3.3-5.1) mmol/L Chloride 102 (96-108) mmol/L Carbon Dioxide 26 (22-29) mmol/L Anion Gap 18 (12-20) BUN 24 H (9-16) mg/dL Creatinine 1.06 (0.5-1.4) mg/dL Estim Creat Clear Calc 96.7 Estimated GFR > 60 Random Glucose 112 (60-115) mg/dL Uric Acid 8.7 H (3.4-7.0) mg/dL Calcium 9.7 D (8.4-10.2) mg/dL Magnesium 2.0 (1.6-2.6) mg/dL Total Bilirubin 1.0 (0.0-1.0) mg/dL Direct Bilirubin 0.2 (0.0-0.5) mg/dL AST 15 (5-37) U/L ALT 22 (0-40) U/L Alkaline Phosphatase 59 (39-117) U/L Total Protein 7.2 (6.5-8.0) g/dL Albumin 4.4 (3.5-5.0) g/dL Vitamin B12 511 (200-900) pg/mL 25-OH Vitamin D Total 26.5 (>30) ng/mL <Gretel Rhoades NP - Last Filed: 02/09/23 01:30> External Record Review External record reviewed: Outpatient record and Prior outpatient labs <Gretel Rhoades NP - Last Filed: 05/12/22 01:30> Prescription Management I considered prescription management with: Pain Medication and Other (Prednisone) <Gretel Rhoades NP - Last Filed: 05/12/22 01:30> Chronic Conditions Patient?s care impacted by: Hypertension <Gretel Rhoades NP - Last Filed: 05/12/22 01:30> Discharge Plan Discharge Clinical Impression: Gout attack <Therese Reyes NP - Last Filed: 05/11/22 14:25> Patient Disposition: Home, Self-Care <Therese Reyes NP - Last Filed: 05/11/22 14:25> Instructions: Gout (ED) <Therese Reyes NP - Last Filed: 05/11/22 14:25> Additional Instructions: You were evaluated for burning foot pain. Uric acid level is elevated consistent with gout. Please take colchicine 0.6 mg daily. Please take prednisone 60 mg daily for the next 5 days. Continue to take your vitamin D daily. Follow-up with [facility] on [facility] in [place]. I have referred you to Dr. Jacob. It may take you several months to get a primary care, for non emergent follow-up visits please present to urgent care. Thank you for choosing this emergency department for evaluation. Please follow-up with primary care physician as needed. Return to the emergency department for any new, concerning, or worsening symptoms. <Therese Reyes NP - Last Filed: 05/11/22 14:25> Prescriptions: New prednisone 20 mg tablet 60 mg PO DAILY 5 Days Qty: 15 0RF colchicine 0.6 mg capsule 0.6 mg PO DAILY 30 Days Qty: 30 0RF No Action ibuprofen 600 mg tablet 600 mg PO Q6H PRN (Reason: pain) Qty: 20 0RF <Therese Reyes NP - Last Filed: 05/11/22 14:25> Referrals: Mahendra Jacob MD [Physician] - 2 weeks (Gout flare) <Therese Reyes NP - Last Filed: 05/11/22 14:25> Interventions: ED Discharge Assessment Last Done: 05/11/22 22:47 <Therese Reyes NP - Last Filed: 05/11/22 14:25> Discharge Date/Time: 05/11/22 22:48 <Therese Reyes NP - Last Filed: 05/11/22 14:25>
[2022-05-11 14:39] LABS: MANUAL DIFF FLAG NO
[2022-05-11 14:41] LABS: Basophils Percent Auto 0.4 % (0-2); Eosinophils Absolute Auto 0.3 X10*3/uL (0.0-0.4); Eosinophils Percent Auto 2.4 % (0-4); Hematocrit 42.7 % (42.0-52.0); Hemoglobin 14.7 g/dl (14.0-18.0); Imm Gran Abs Auto 0.06 X10*3/uL (0.00-0.03); Imm Gran Pct Auto 0.5 % (0.0-0.4); Lymphocytes Absolute Auto 2.7 X10*3/uL (1.2-4.9); Lymphocytes Percent Auto 24.3 % (20-40); Mean Corpuscular HGB Conc 34.4 g/dl (31.0-36.0); Mean Corpuscular Volume 90.1 fL (80.0-98.0); Mean Platelet Volume 10.3 fL (9.4-12.4); Monocytes Absolute Auto 0.9 X10*3/uL (0.1-1.2); Monocytes Percent Auto 8.4 % (2-11); Neutrophils Absolute Auto 7.1 x10*3/uL (2.0-8.3); Platelet Count 305 X10*3/uL (160-400); Red Blood Count 4.74 X10*6/uL (4.60-5.80); Red Cell Distribution Width 12.3 % (11.0-16.0); White Blood Count 11.1 X10*3/uL (4.8-10.8)
[2022-05-11 14:57] LABS: Alanine Aminotransferase 22 U/L (0-40); Albumin Level 4.4 g/dL (3.5-5.0); Alkaline Phosphatase 59 U/L (39-117); Anion Gap 18 (12-20); Aspartate Amino Transferase 15 U/L (5-37); Bilirubin Direct 0.2 mg/dL (0.0-0.5); Blood Urea Nitrogen 24 mg/dL (9-16); Calcium 9.7 mg/dL (8.4-10.2); Carbon Dioxide 26 mmol/L (22-29); Chloride 102 mmol/L (96-108); Creatinine Clr Calc Pharmacy 96.7; Estimated Glomerular Filt Rate > 60; Glucose Random 112 mg/dL (60-115); Potassium 4.6 mmol/L (3.3-5.1); Sodium 141 mmol/L (135-145); Total Protein 7.2 g/dL (6.5-8.0)
[2022-05-11 17:38] VITALS: BP 139/84; PULSE 87; RESP 20; TEMP 36.7; O2SAT 97
[2022-05-11] MEDS: 0.9 % Sodium Chloride 1,000 ML 999 ML IVCONT (19:42)
[2022-05-11] MEDS: Ketorolac Tromethamine 30 MG/ML VIAL IVPUSH (19:49)
--- NOTE | 2022-05-11 19:51 | PC.NURSE ---
pt a&o, no sob or chest pain. pt medicated per jun. Notified KEV Yañez. Will continue to monitor.
[2022-05-11 19:55] LABS: Uric Acid 8.7 mg/dL (3.4-7.0)
[2022-05-11 20:16] LABS: Vitamin B12 511 pg/mL (200-900); Vitamin D 25-OH Total 26.5 ng/mL (>30)
[2022-05-11 20:51] VITALS: BP 113/73; PULSE 75; RESP 16; TEMP 36.7; O2SAT 95
[2022-05-11] MEDS: predniSONE 20 MG TABLET 60 MG PO (22:40)
[2022-05-11] MEDS: Colchicine 0.6 MG TABLET PO (22:40)
[2022-05-12 09:23] LABS: Estimated Average Glucose 94 mg/dL; Hemoglobin A1c % 4.9 %
== END 2022-05-11 22:48 | disposition home or self-care (01) ==
PROVIDERS: Nurse Practitioner Family; Emergency Provider Emergency Medicine Emergency Medical Services
DX: M10.9 Gout, unspecified (principal); M79.672 Pain in left foot; M79.671 Pain in right foot
CPT/HCPCS: 36415; 80048; 80076; 82306; 82607; 83036; 83735; 84550; 85025; 96361; 96374; 99284; J1885

== ENCOUNTER 2023-04-14 14:56 | Outpatient (REF) | payer MEDICAID, SELFPAY ==
--- NOTE | ~2023-04-14 | XR_ITS ---
EXAMINATION: XR CHEST CLINICAL INFORMATION: Shortness of breath. Cough. COMPARISON: Chest x-ray February 18, 2014. CT chest June 29, 2020 TECHNIQUE: 2 views of the chest were obtained. FINDINGS: No significant abnormality is noted involving the heart, lungs, mediastinum, bony thorax or soft tissues. XR/XR chest 2V IMPRESSION: Unremarkable examination.
== END 2023-04-14 14:57 | disposition home or self-care (01) ==
LOC: HO.HHCX 14:56
PROVIDERS: Visit Provider Nurse Practitioner
DX: R05.1 Acute cough (principal)
CPT/HCPCS: 71046

== ENCOUNTER 2023-04-15 10:20 | Outpatient (REF) | payer MEDICAID, SELFPAY ==
[2023-04-15 10:29] LABS: MANUAL DIFF FLAG NO
[2023-04-15 10:45] LABS: Basophils Percent Auto 0.3 % (0-2); Eosinophils Absolute Auto 0.1 X10*3/uL (0.0-0.4); Eosinophils Percent Auto 1.2 % (0-4); Hematocrit 44.5 % (42.0-52.0); Hemoglobin 15.7 g/dl (14.0-18.0); Imm Gran Abs Auto 0.08 X10*3/uL (0.00-0.03); Imm Gran Pct Auto 0.7 % (0.0-0.4); Lymphocytes Absolute Auto 1.4 X10*3/uL (1.2-4.9); Lymphocytes Percent Auto 11.7 % (20-40); Mean Corpuscular HGB Conc 35.3 g/dl (31.0-36.0); Mean Corpuscular Hemoglobin 31.7 pg (27.0-33.0); Mean Corpuscular Volume 89.9 fL (80.0-98.0); Mean Platelet Volume 10.3 fL (9.4-12.4); Monocytes Absolute Auto 0.8 X10*3/uL (0.1-1.2); Monocytes Percent Auto 7.1 % (2-11); Neutrophils Absolute Auto 9.1 x10*3/uL (2.0-8.3); Platelet Count 300 X10*3/uL (160-400); Red Blood Count 4.95 X10*6/uL (4.60-5.80); Red Cell Distribution Width 11.8 % (11.0-16.0); White Blood Count 11.5 X10*3/uL (4.8-10.8)
[2023-04-15 11:12] LABS: Alanine Aminotransferase 44 U/L (0-40); Albumin Level 4.5 g/dL (3.5-5.0); Alkaline Phosphatase 61 U/L (39-117); Anion Gap 19 (12-20); Aspartate Amino Transferase 20 U/L (5-37); Bilirubin Total 1.1 mg/dL (0.0-1.0); Blood Urea Nitrogen 17 mg/dL (9-16); Calcium 9.3 mg/dL (8.4-10.2); Carbon Dioxide 21 mmol/L (22-29); Chloride 101 mmol/L (96-108); Cholesterol 263 mg/dL (<200); Estimated Glomerular Filt Rate > 60; Glucose Random 109 mg/dL (60-115); HDL Cholesterol 31 mg/dL (>40); Potassium 4.3 mmol/L (3.3-5.1); Sodium 137 mmol/L (135-145); Total Protein 7.8 g/dL (6.5-8.0); Triglycerides 812 mg/dL (<150)
[2023-04-16 04:58] LABS: HBS Num1 0.07 mIU/mL (0-7.99); HBc Num1 0.05 S/CO (0.00-0.79); HBsAGNum1 0.29 S/CO (0.00-0.99); HIV AB/AG Nonreactive (Nonreactive); HIV Num 1 0.05 S/CO (0.00-0.99); Hepatitis A Antibody IgM 0.15 Index (0-0.79); Hepatitis B Core Antibody Nonreactive (Nonreactive); Hepatitis B Surface Antigen Negative (Negative); ~HepC Num1 0.12 S/CO (0.00-0.79); ~Hepatitis A Antibody IgM Nonreactive (Nonreactive); ~Hepatitis B Surface Antibody NONREACTIVE (Nonreactive); ~Hepatitis C Antibody Nonreactive (Nonreactive)
== END 2023-04-15 10:21 | disposition home or self-care (01) ==
LOC: HO.LAB 10:20
PROVIDERS: PCP Nurse Practitioner; Visit Provider Nurse Practitioner
DX: E66.9 Obesity, unspecified (principal); R05.1 Acute cough; Z11.3 Encounter for screening for infections with a predominantly sexual mode of transmission
CPT/HCPCS: 36415; 80053; 80061; 85025; 86704; 86706; 86709; 86803; 87340; 87389

== ENCOUNTER 2023-05-24 10:59 | Outpatient (REF) | payer MEDICAID, SELFPAY ==
[2023-05-24 12:31] LABS: Alanine Aminotransferase 34 U/L (0-40); Albumin Level 4.6 g/dL (3.5-5.0); Alkaline Phosphatase 50 U/L (39-117); Aspartate Amino Transferase 20 U/L (5-37); Bilirubin Direct 0.4 mg/dL (0.0-0.5); Bilirubin Total 1.6 mg/dL (0.0-1.0); Cholesterol 143 mg/dL (<200); HDL Cholesterol 46 mg/dL (>40); LDL Cholesterol Calculated 74 mg/dL (<100); Total Protein 7.4 g/dL (6.5-8.0); Triglycerides 117 mg/dL (<150)
[2023-05-24 12:39] LABS: Creatinine Urine 121.48 mg/dL; Microalbum/Creatinine Ratio Ur 4.9 ug/mg cr (<30)
[2023-05-24 12:48] LABS: Thyroid Stimulating Hormone 0.76 uIU/mL (0.32-4.0)
== END 2023-05-24 11:00 | disposition home or self-care (01) ==
LOC: HO.LAB 10:59
PROVIDERS: PCP Nurse Practitioner; Visit Provider Nurse Practitioner
DX: E78.1 Pure hyperglyceridemia (principal)
CPT/HCPCS: 36415; 80061; 80076; 82043; 82570; 84443

== ENCOUNTER 2023-06-21 14:54 | Outpatient (REF) | payer MEDICAID, SELFPAY ==
--- NOTE | ~2023-06-21 | XR_ITS ---
EXAMINATION: XR CHEST CLINICAL INFORMATION: Cough, fever, dyspnea on exertion COMPARISON: 04/14/2023 TECHNIQUE: 2 views of the chest were obtained. FINDINGS: No significant abnormality is noted involving the heart, lungs, mediastinum, bony thorax or soft tissues. XR/XR chest 2V IMPRESSION: Unremarkable examination.
== END 2023-06-21 14:55 | disposition home or self-care (01) ==
LOC: HO.HHCX 14:54
PROVIDERS: Visit Provider Internal Medicine Geriatric Medicine
DX: R07.81 Pleurodynia (principal); R05.1 Acute cough; R50.9 Fever, unspecified; R06.2 Wheezing
CPT/HCPCS: 71046

== ENCOUNTER 2023-06-21 15:42 | Emergency (ER) | payer MEDICAID, SELFPAY ==
--- NOTE | 2023-06-21 | ECG_ITS ---
Test Reason : SOB Blood Pressure : / mmHG Vent. Rate : 088 BPM Atrial Rate : 088 BPM P-R Int : 118 ms QRS Dur : 086 ms QT Int : 366 ms P-R-T Axes : 043 056 050 degrees QTc Int : 442 ms Normal sinus rhythm Normal ECG When compared with ECG of 18-FEB-2014 06:03, No significant changes seen Referred By: Generic ED Physician Electronically Signed By:ZOILA SHORT
[2023-06-21 15:59] VITALS: BP 121/83; PULSE 112; RESP 14; TEMP 37.2; O2SAT 92; BMI 33.9
[2023-06-21 16:15] LABS: Basophils Absolute Auto 0.1 X10*3/uL (0.0-0.2); Basophils Percent Auto 0.5 % (0-2); Eosinophils Absolute Auto 0.1 X10*3/uL (0.0-0.4); Eosinophils Percent Auto 0.7 % (0-4); Hematocrit 40.6 % (42.0-52.0); Hemoglobin 14.4 g/dl (14.0-18.0); Imm Gran Abs Auto 0.16 X10*3/uL (0.00-0.03); Imm Gran Pct Auto 0.9 % (0.0-0.4); Lymphocytes Absolute Auto 1.6 X10*3/uL (1.2-4.9); Lymphocytes Percent Auto 9.1 % (20-40); MANUAL DIFF FLAG SCAN; Mean Corpuscular HGB Conc 35.5 g/dl (31.0-36.0); Mean Corpuscular Hemoglobin 31.6 pg (27.0-33.0); Mean Platelet Volume 10.1 fL (9.4-12.4); Monocytes Absolute Auto 1.7 X10*3/uL (0.1-1.2); Monocytes Percent Auto 9.9 % (2-11); Neutrophils Absolute Auto 13.8 x10*3/uL (2.0-8.3); Neutrophils Percent Auto 78.9 % (45-73); Platelet Count 373 X10*3/uL (160-400); Red Blood Count 4.56 X10*6/uL (4.60-5.80); Red Cell Distribution Width 11.8 % (11.0-16.0); SCAN SMEAR FLAG 1; White Blood Count 17.4 X10*3/uL (4.8-10.8)
[2023-06-21 16:31] LABS: Alanine Aminotransferase 25 U/L (0-40); Albumin Level 4.3 g/dL (3.5-5.0); Alkaline Phosphatase 71 U/L (39-117); Anion Gap 14 (12-20); Aspartate Amino Transferase 16 U/L (5-37); Bilirubin Total 1.7 mg/dL (0.0-1.0); Blood Urea Nitrogen 15 mg/dL (9-16); Calcium 10.1 mg/dL (8.4-10.2); Carbon Dioxide 23 mmol/L (22-29); Chloride 103 mmol/L (96-108); Estimated Glomerular Filt Rate > 60; Glucose Random 107 mg/dL (60-115); Potassium 4.1 mmol/L (3.3-5.1); Sodium 136 mmol/L (135-145); Total Protein 8.3 g/dL (6.5-8.0)
[2023-06-21 16:38] LABS: SLIDE REVIEW VERIFIED
--- NOTE | 2023-06-21 16:52 | ED.URI ---
HPI - URI/Sore Throat General Chief Complaint: Upper Respiratory Symptoms Stated Complaint: chest pain Time Seen by Provider: 06/21/23 16:18 Source: patient Mode of arrival: EMS History of Present Illness HPI Narrative: 48-year-old male with presentation for persistent coughing nasal congestion and body aches since Monday, denies any significant past medical history or use of prescription medications and states that he quit smoking at the beginning of April, he states that he socially consumes alcohol in the last time was on Monday. Denies abdominal pain and nausea but states he did have an episode of vomiting that was associated with cough, he does report chest pain that is also associated with cough. Related Data Previous Rx's Medication Instructions Recorded ibuprofen 600 mg tablet 600 mg PO Q6H PRN pain #20 tabs 10/30/20 colchicine 0.6 mg capsule 0.6 mg PO DAILY 30 days #30 caps 05/11/22 prednisone 20 mg tablet 60 mg (3 x 20 mg) PO DAILY 5 days 05/11/22 #15 tabs benzonatate 200 mg capsule 200 mg PO TID PRN cough #10 caps 06/21/23 prednisone 50 mg tablet 50 mg PO DAILY 4 days #4 tabs 06/21/23 Allergies Allergy/AdvReac Type Severity Reaction Status Date / Time No Known Allergies Allergy Verified 06/29/20 18:34 Review of Systems Review of Systems: Pertinent positives and negatives as stated in HPI [facility]LY [facility] Past Medical History Source: nursing notes reviewed Medical History High cholesterol Social History Social History Alcohol intake: unknown Advance Directives: No Advance Directives Information Provided: No Physical Exam Vital Signs: Vital Signs: Last Vital Signs Temp 97.8 F 06/21/23 19:09 Pulse 85 06/21/23 19:09 Resp 16 06/21/23 19:09 BP 123/78 06/21/23 19:09 Pulse Ox 95 06/21/23 19:09 O2 Del Method Room Air 06/21/23 19:09 BMI result Body Mass Index 33.9 VITAL SIGNS: Reviewed. GENERAL: Well developed, well nourished, in no acute distress. HEAD: Normocephalic/atraumatic EYES: PERRLA, EOMI intact without pain, no nystagmus/pallor/icterus noted EARS: Ext canals without abnormality, TMs non-bulging and non-erythematous NOSE: Nares patent bilateral OROPHARYNX: no oral lesions noted, posterior pharynx clear and non-erythematous without noted tonsillar enlargement/erythema/exudates NECK: Supple, no adenopathy LUNGS: Good inspiratory effort but scattered rhonchi throughout with minimal expiratory wheeze. SpO2<92> 2 L nasal cannula CARDIOVASCULAR: Regular rate and rhythm without noted murmurs ABDOMEN: Soft, non-tender, non-distended with bowel sounds. MUSCULOSKELETAL: No tenderness, deformities, or effusions noted on gross inspection. EXTREMITIES: No cyanosis, clubbing or edema. SKIN: Inspection of the skin reveals no rashes NEUROLOGIC: Alert and oriented x 4. Strength and sensation to light touch were grossly intact x 4. Medications Administered Discontinued Medications Generic Name Dose Route Start Last Admin Trade Name Freq PRN Reason Stop Dose Admin Acetaminophen 975 mg 06/21/23 16:49 06/21/23 17:26 Acetaminophen 325 Mg Tablet PO 06/21/23 16:50 975 mg ONCE ONE Administration Benzonatate 200 mg 06/21/23 16:49 06/21/23 17:27 Benzonatate 100 Mg Capsule PO 06/21/23 16:50 200 mg ONCE ONE Administration Ibuprofen 400 mg 06/21/23 16:49 06/21/23 17:27 Ibuprofen 400 Mg Tablet PO 06/21/23 16:50 400 mg ONCE ONE Administration Prednisone 50 mg 06/21/23 18:25 06/21/23 19:05 Prednisone 10 Mg Tablet PO 06/21/23 18:26 50 mg ONCE ONE Administration Medical Decision Making Medical Decision Making [facility] Narrative: 48-year-old male with history and clinical presentation, DDX: Suspect viral URI inpatient reports he is recently received an albuterol inhaler for suspected underlying asthma/chronic lung disease, he denies vaping, chest pain appears to be chest wall pain and associated with coughing. Sinus tachycardia that is noted is likely secondary to patient's receipt of albuterol inhalers at the clinic. I reviewed all investigations and hematologic indices demonstrate a noninfectious leukocytosis, patient is afebrile and there is no anemia or thrombocytopenia. Chest x-ray does not demonstrate an infiltrate or venous congestion. Chemistry indices are negative for ESPERANZA/electrolyte or liver enzyme derangements. Viral testing is negative for influenza/RSV/COVID-19. Patient ambulation oxygenation is noted be 94%, he was treated with combination analgesics as well as 50 mg of prednisone and is otherwise feeling better. He is discharged home with instructions to follow-up with his primary care doctor. Differential Diagnosis Differential Diagnoses: The differential diagnosis associated with the presentation includes Please see the discussion above Admission/Observation Consideration of admission/observation: Escalation of care including admission/observation considered Please see the discussion above Lab Data MDM Lab Attestation statement: I reviewed the patient's lab results. Please see the discussion above 06/21/23 16:10 06/21/23 16:10 Labs: Lab Results 06/21/23 06/21/23 Range/Units 16:10 17:23 WBC 17.4 H (4.8-10.8) X10*3/uL RBC 4.56 L (4.60-5.80) X10*6/uL Hgb 14.4 (14.0-18.0) g/dl Hct 40.6 L (42.0-52.0) % MCV 89.0 (80.0-98.0) fL MCH 31.6 (27.0-33.0) pg MCHC 35.5 (31.0-36.0) g/dl RDW 11.8 (11.0-16.0) % Plt Count 373 (160-400) X10*3/uL MPV 10.1 (9.4-12.4) fL Immature Gran % (Auto) 0.9 H (0.0-0.4) % Neut % (Auto) 78.9 H (45-73) % Lymph % (Auto) 9.1 L (20-40) % [place] % (Auto) 9.9 (2-11) % Eos % (Auto) 0.7 (0-4) % Baso % (Auto) 0.5 (0-2) % Lymph # (Auto) 1.6 (1.2-4.9) X10*3/uL [place] # (Auto) 1.7 H (0.1-1.2) X10*3/uL Eos # (Auto) 0.1 (0.0-0.4) X10*3/uL Baso # (Auto) 0.1 (0.0-0.2) X10*3/uL Abs Immat Gran (auto) 0.16 H (0.00-0.03) X10*3/uL Absolute Neuts (auto) 13.8 H (2.0-8.3) x10*3/uL Absolute Nucleated RBC 0.000 (0.0-0.012) X10*3/uL Nucleated RBC % (auto) 0.0 (0.0-0.2) /100WBC Smear Tech's Comments VERIFIED Sodium 136 (135-145) mmol/L Potassium 4.1 (3.3-5.1) mmol/L Chloride 103 (96-108) mmol/L Carbon Dioxide 23 (22-29) mmol/L Anion Gap 14 (12-20) BUN 15 (9-16) mg/dL Creatinine 0.89 (0.5-1.4) mg/dL Estim Creat Clear Calc 123.0 Estimated GFR > 60 Random Glucose 107 (60-115) mg/dL Calcium 10.1 D (8.4-10.2) mg/dL Total Bilirubin 1.7 H (0.0-1.0) mg/dL AST 16 (5-37) U/L ALT 25 (0-40) U/L Alkaline Phosphatase 71 (39-117) U/L Total Protein 8.3 H (6.5-8.0) g/dL Albumin 4.3 (3.5-5.0) g/dL Influenza Type A (PCR) NEGATIVE (Negative) Influenza Type B (PCR) NEGATIVE (Negative) RSV RNA Qual (PCR) NEGATIVE (Negative) SARS-CoV-2 RNA (RT-PCR) NEGATIVE (Negative) Radiology Impression Discussion of test interpretation with radiology: I have reviewed the radiologist's reading. Radiologist Impression: Please see the discussion above External Record Review External record reviewed: Outpatient record, Prior outpatient labs and Prior outpatient radiology Critical Care Time Critical Care Time Critical Care Time: Yes Total Critical Care Time: 30 Attestation: I personally attest to this time spent taking care of the patient. Discharge Plan Discharge Clinical Impression: Viral syndrome, Bronchitis Patient Disposition: Home, Self-Care Instructions: Acute Bronchitis (ED), Viral Syndrome (ED), Noncardiac Chest Pain (ED) Additional Instructions: 1. Complete the course steroids as prescribed. 2. Follow-up with your primary care doctor in the next 1-2 days. 3. Recommend [id number] Tylenol/ibuprofen as needed for body aches, also recommend to take the cough medication that has been prescribed to you. Return to the ER for any worsening symptoms. Prescriptions: New prednisone 50 mg tablet 50 mg PO DAILY 4 Days Qty: 4 0RF benzonatate 200 mg capsule 200 mg PO TID PRN (Reason: cough) Qty: 10 0RF No Action ibuprofen 600 mg tablet 600 mg PO Q6H PRN (Reason: pain) Qty: 20 0RF prednisone 20 mg tablet 60 mg PO DAILY 5 Days Qty: 15 0RF colchicine 0.6 mg capsule 0.6 mg PO DAILY 30 Days Qty: 30 0RF Referrals: [facility] [Primary Care Provider] - Stand Alone Forms: Work/School Release Interventions: ED Discharge Assessment Last Done: 06/21/23 19:09 Discharge Date/Time: 06/21/23 19:10
[2023-06-21] MEDS: Acetaminophen 325 MG TABLET 975 MG PO (17:26)
[2023-06-21] MEDS: Benzonatate 100 MG CAPSULE 200 MG PO (17:27)
[2023-06-21] MEDS: Ibuprofen 400 MG TABLET PO (17:27)
[2023-06-21 18:12] LABS: Influenza A PCR NEGATIVE (Negative); Influenza B PCR NEGATIVE (Negative); Resp Syncy Virus RNA Qual PCR NEGATIVE (Negative); SARS COV2 PCR INHOUSE NEGATIVE (Negative)
--- NOTE | 2023-06-21 18:43 | PC.NURSE ---
ambulating pulse oxygen obtained - patient remains 94% on room air.
[2023-06-21 18:44] VITALS: O2SAT 94
[2023-06-21] MEDS: predniSONE 10 MG TABLET 50 MG PO (19:05)
[2023-06-21 19:09] VITALS: BP 123/78; PULSE 85; RESP 16; TEMP 36.6; O2SAT 95
== END 2023-06-21 19:10 | disposition home or self-care (01) ==
PROVIDERS: Emergency Provider Student in an Organized Health Care Education/Training Program
DX: B34.9 Viral infection, unspecified (principal); J40 Bronchitis, not specified as acute or chronic; Z11.52 Encounter for screening for COVID-19; Z20.828 Contact with and (suspected) exposure to other viral communicable diseases
CPT/HCPCS: 0241U; 36415; 80053; 85025; 93005; 99283; 99285

== ENCOUNTER → 2023-06-21 18:49 | Outpatient (BNV) | payer MEDICAID, SELFPAY | PROVIDERS: Emergency Provider Student in an Organized Health Care Education/Training Program; Visit Provider Internal Medicine | DX: R06.02 Shortness of breath (principal) | CPT/HCPCS: 93010 ==

== ENCOUNTER 2023-06-23 11:17 | Outpatient (REF) | payer MEDICAID, SELFPAY ==
--- NOTE | ~2023-06-23 | CT_ITS ---
EXAMINATION: CT CHEST WITHOUT CONTRAST CLINICAL INFORMATION: Acute cough. COMPARISON: June 29, 2020. TECHNIQUE: Multidetector volumetric CT imaging of the chest was done. Axial MIP volume rendering provided. Sagittal and coronal reformatted images were obtained. This CT examination was performed using dose optimization techniques as appropriate, variously including the following: *Automated exposure control *Adjustment of mA and/or kV according to patient size (this includes techniques or standardized protocols for targeted exams where dose is matched to indication/reason for exam; i.e. extremities or head) *Use of iterative reconstruction technique DLP: 408 mGy-cm FINDINGS: LUNGS: Limited by motion. Suspect mild bilateral bronchial wall thickening and bronchiectasis predominantly involving the left upper lobe, right middle lobe, and to a lesser extent, the left lower lobe these findings appear mildly worse compared with June 29, 2020. Associated peribronchial groundglass densities in these regions, improved compared with 2020. No consolidation appreciated. No solid nodule identified. MEDIASTINUM: Subcentimeter mediastinal nodes, within normal limits by size criteria, grossly similar compared with June 29, 2020. Heart upper normal in size. No pericardial effusion. CORONARY ARTERY CALCIFICATION: None visualized on this study. PLEURA: There is no pleural effusion. No pleural mass or thickening. CHEST WALL/AXILLA: Mild bilateral gynecomastia. No lymphadenopathy by size criteria. UPPER ABDOMEN: Unremarkable. OSSEOUS STRUCTURES: Unremarkable. CT/CT chest wo IV con IMPRESSION: Limited by motion. Suspect mild bilateral bronchial wall thickening and bronchiectasis predominantly involving the left upper lobe, right middle lobe, and to a lesser extent, the left lower lobe these findings appear mildly worse compared with June 29, 2020. Associated peribronchial groundglass densities in these regions, improved compared with 2020. The findings are nonspecific. Differential diagnosis includes, but is not limited to, inflammatory/infectious.
== END 2023-06-23 11:18 | disposition home or self-care (01) ==
LOC: HO.CT 11:17
PROVIDERS: PCP Nurse Practitioner; Visit Provider Nurse Practitioner
DX: R05.1 Acute cough (principal)
CPT/HCPCS: 71250

== ENCOUNTER 2023-07-05 14:18 | Outpatient (AMB) | payer MEDICAID, SELFPAY ==
--- NOTE | 2023-07-05 13:46 | A.OFFVIS_ITS ---
Intake Vital Signs 07/05/23 14:27 Height 5 ft 10 in Weight 242 lb BMI 34.7 BP 124/62 Blood Pressure Location Rt brachial Position Sitting Pulse 78 Pulse Source Pulse Oximeter Pulse Oximetry (%) 96 Oxygen Delivery Method Room Air Intake Visit Reasons: Cough Cereal Supervisor Required: No Kelp Or Seagrass Gatherer: Kelp Or Seagrass Gatherer offered & declined Allergies No Known Allergies Allergy (Verified 07/05/23 14:36) Medication List - Last Reconciled 07/05/23 by Danika Trujillo LPN ibuprofen 600 mg PO Q6H PRN HPI Cough HPI Details Sarath is a pleasant 48 year male, former minimal smoker, with no significant past medical history. He was referred by PCP for pulmonary evaluation. He reports symptoms of productive cough, dyspnea, and wheezing that started in May and was unreponsive to prednisone, azithromycin and augmentin. Respiratory panel negative. CXR unremarkable. Chest CT revealed bronchial wall thickening and bronchiectasis with associated peribronchial groundglass densities suggestive of inflammatory/infectious processes. He was then placed on levaquin last week with significant improvement in symptoms. He continues to report dyspnea, otherwise denies cough and wheezing. He was prescribed albuterol but reports suboptimal effect. He reports severe asthma as a young child, unsure of intubation. He denies seasonal allergies. Denies any pertinent family history. 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 He also reports significant daytime fatigue, paroxysmal nocturnal dyspnea and loud snoring. He denies prior sleep study. [facility] Medical History High cholesterol Social History (Updated 07/05/23 @ 14:40 by Danika Trujillo LPN) Alcohol intake: unknown Patient Tobacco Use Status: Former Tobacco user Tobacco use type: Cigarette Cigarette Packs Per Day: 0.5 Years Smoked: 4 Review of Systems Const Denies chills, Denies excessive sweating, Denies fever(s), Denies headache(s) and Denies night sweats Eyes Denies dry eyes, Denies irritation and Denies itchy eyes ENT Reports Normal hearing present, Denies headache(s), Denies nasal congestion, Den ies nasal discharge, Denies post nasal drip and Denies sore throat Card Denies chest pain, Denies chest pain at rest, Denies chest pain with activity, Denies claudication, Denies leg edema, Denies orthopnea and Denies paroxysmal nocturnal dyspnea Resp Denies chest congestion, Denies cough, Denies excessive phlegm production, Denies pain on inspiration, Denies pain with cough, Denies stridor and Denies wheezing Musc Denies myalgias Neuro Reports Normal hearing present and Denies headache(s) Endo Denies excessive sweating Tony/Lymph Denies lymphadenopathy Aller/Immun Denies itchy eyes, Denies seasonal rhinorrhea and Denies wheezing Physical Exam Vital Signs: Last Vital Signs Pulse 78 07/05/23 14:27 BP 124/62 07/05/23 14:27 Pulse Ox 96 07/05/23 14:27 Oxygen Delivery Method Room Air 07/05/23 14:27 BMI result Body Mass Index 34.7 Const General: cooperative, healthy appearing, comfortable, no acute distress, well developed and alert Nutritional Appearance: obese Orientation/consciousness: patient oriented x3 Limitations: no limitations HEENT Head: Yes normal to inspection, Yes normocephalic and Yes atraumatic Ears: hearing grossly normal bilaterally and external ears normal Eyes General: appearance normal, both eyes and all related structures Eyelids: Yes eyelids normal Sclerae: sclerae normal EOM: EOMs intact bilaterally Neck Neck: Yes normal visual inspection and Yes no lymphadenopathy Lymphatic: no lymphadenopathy noted Chest Chest palpation & inspection: normal inspection of the chest Resp Effort & Inspection: normal respiratory effort, able to speak in complete sentences, no audible wheezes, no cough, no stridor, not tachypneic, no tripod positioning and no use of accessory muscles Auscultation: clear to auscultation bilaterally Cardio Jugular venous distension: no JVD Rate: regular rate Rhythm: regular rhythm Skin Other: warm, dry General skin exam: no rashes or lesions noted Neuro General: patient oriented x3 Cranial nerves: Yes Normal hearing present Cognition (Neuro): normal cognition Gait exam (Neuro): Normal gait present Extrem General: Yes normal to inspection, Yes capillary refill normal, Yes no clubbing, cyanosis or edema and Yes no pedal edema Psych Appearance: grossly normal and well kempt Speech and movement: Normal speech and movement present and Clear speech present Affect: normal affect Attitude: cooperative Thought process: Normal thought process present Thought content: Normal thought content present Insight: Good insight present (Psych) Judgement: Good judgement present (Psych) Results Reviewed Results Reviewed: [address] [address] [address] Scan Report Signed Patient: Sarath Rao MR#: [id number] : 1975 Acct:[id number] Age/Sex: 48 / M ADM Date: 06/23/23 Loc: HO.CT Attending Dr: Bhumika Melendez Ordering Physician: Bhumika Melendez Date of Service: 06/23/23 Procedure(s): CT chest wo IV con Accession Number(s): [id number] cc: Bhumika Melendez~ EXAMINATION: CT CHEST WITHOUT CONTRAST CLINICAL INFORMATION: Acute cough. COMPARISON: June 29, 2020. TECHNIQUE: Multidetector volumetric CT imaging of the chest was done. Axial MIP volume rendering provided. Sagittal and coronal reformatted images were obtained. This CT examination was performed using dose optimization techniques as appropriate, variously including the following: *Automated exposure control *Adjustment of mA and/or kV according to patient size (this includes techniques or standardized protocols for targeted exams where dose is matched to indication/reason for exam; i.e. extremities or head) *Use of iterative reconstruction technique DLP: 408 mGy-cm FINDINGS: LUNGS: Limited by motion. Suspect mild bilateral bronchial wall thickening and bronchiectasis predominantly involving the left upper lobe, right middle lobe, and to a lesser extent, the left lower lobe these findings appear mildly worse compared with June 29, 2020. Associated peribronchial groundglass densities in these regions, improved compared with 2020. No consolidation appreciated. No solid nodule identified. MEDIASTINUM: Subcentimeter mediastinal nodes, within normal limits by size criteria, grossly similar compared with June 29, 2020. Heart upper normal in size. No pericardial effusion. CORONARY ARTERY CALCIFICATION: None visualized on this study. PLEURA: There is no pleural effusion. No pleural mass or thickening. CHEST WALL/AXILLA: Mild bilateral gynecomastia. No lymphadenopathy by size criteria. UPPER ABDOMEN: Unremarkable. OSSEOUS STRUCTURES: Unremarkable. CT/CT chest wo IV con IMPRESSION: Limited by motion. Suspect mild bilateral bronchial wall thickening and bronchiectasis predominantly involving the left upper lobe, right middle lobe, and to a lesser extent, the left lower lobe these findings appear mildly worse compared with June 29, 2020. Associated peribronchial groundglass densities in these regions, improved compared with 2020. The findings are nonspecific. Differential diagnosis includes, but is not limited to, inflammatory/infectious. Dictated By: Adam Baez Signed By: <Electronically signed by Adam Baez in OV> 06/23/23 1256 DD/ 1206 TD/TT: Civil Engineer In Training: Assessment & Plan Assessment & Plan (1) Asthma: Code(s): J45.909 - Unspecified asthma, uncomplicated (2) Dyspnea on exertion: Code(s): R06.09 - Other forms of dyspnea (3) Daytime somnolence: Code(s): R40.0 - Somnolence (4) Abnormal finding on CT scan: Code(s): R93.89 - Abnormal findings on diagnostic imaging of other specified body structures Plan Sarath's symptoms are likely related to poorly controlled asthma. Will send for PFT to evaluate and empirically start on ICS. He is aware to call if no improvement in symptoms to call office. Will also send for repeat chest CT in 6- 8 weeks to assess for resolution of abnormalities. Patient reported symptoms suggestive of JOLANTA, will send for home sleep study. All questions were answered and patient is in agreement of plan. Will follow up to review response to inhaler and results. Orders: Orders CT chest wo IV con 6 Weeks R93.89 - Abnormal findings on diagnostic imaging of other specified body structures PFT pulmonary function test Today J45.909 - Unspecified asthma, uncomplicated Medications: New fluticasone propionate 110 mcg/actuation administer with spacer 2 puffs inhalation BID 12 grams 6RF Coding Level of Care Code New Pt Level 4 (46178) Diagnoses Asthma J45.909 Dyspnea on exertion R06.09 Daytime somnolence R40.[address] scan R93.89
[2023-07-05 14:27] VITALS: BP 124/62; PULSE 78; O2SAT 96; BMI 34.7
== END 2023-07-05 15:14 | disposition home or self-care (01) ==
PROVIDERS: PCP Nurse Practitioner; Referring Provider Nurse Practitioner; Visit Provider Nurse Practitioner Family
DX: J45.909 Unspecified asthma, uncomplicated (principal); R06.09 Other forms of dyspnea; R40.0 Somnolence; R93.89 Abnormal findings on diagnostic imaging of other specified body structures
CPT/HCPCS: 99204

== ENCOUNTER → 2023-07-05 14:18 | Outpatient (BNVA) | payer OTHER, SELFPAY | PROVIDERS: PCP Nurse Practitioner; Referring Provider Nurse Practitioner; Visit Provider Nurse Practitioner Family | DX: J45.909 Unspecified asthma, uncomplicated (principal); R06.09 Other forms of dyspnea; R40.0 Somnolence; R93.89 Abnormal findings on diagnostic imaging of other specified body structures; Z87.891 Personal history of nicotine dependence | CPT/HCPCS: 99212 ==

== ENCOUNTER 2023-07-19 11:04 | Outpatient (REF) | payer OTHER, SELFPAY ==
[2023-07-19 13:15] LABS: MANUAL DIFF FLAG NO
[2023-07-19 13:35] LABS: Basophils Absolute Auto 0.1 X10*3/uL (0.0-0.2); Basophils Percent Auto 0.6 % (0-2); Eosinophils Absolute Auto 0.4 X10*3/uL (0.0-0.4); Eosinophils Percent Auto 4.5 % (0-4); Hematocrit 44.1 % (42.0-52.0); Imm Gran Pct Auto 1.1 % (0.0-0.4); Lymphocytes Absolute Auto 2.2 X10*3/uL (1.2-4.9); Lymphocytes Percent Auto 24.6 % (20-40); Mean Corpuscular Hemoglobin 30.9 pg (27.0-33.0); Mean Corpuscular Volume 90.9 fL (80.0-98.0); Mean Platelet Volume 11.4 fL (9.4-12.4); Monocytes Absolute Auto 0.8 X10*3/uL (0.1-1.2); Monocytes Percent Auto 9.2 % (2-11); Neutrophils Absolute Auto 5.3 x10*3/uL (2.0-8.3); Platelet Count 269 X10*3/uL (160-400); Red Blood Count 4.85 X10*6/uL (4.60-5.80); Red Cell Distribution Width 12.3 % (11.0-16.0); White Blood Count 8.9 X10*3/uL (4.8-10.8)
[2023-07-19 14:27] LABS: Alanine Aminotransferase 88 U/L (0-40); Albumin Level 4.3 g/dL (3.5-5.0); Alkaline Phosphatase 61 U/L (39-117); Aspartate Amino Transferase 39 U/L (5-37); Bilirubin Direct 0.3 mg/dL (0.0-0.5); Bilirubin Total 1.4 mg/dL (0.0-1.0); Total Protein 7.5 g/dL (6.5-8.0)
== END 2023-07-19 11:05 | disposition home or self-care (01) ==
LOC: HO.HHCL 11:04
PROVIDERS: Visit Provider Nurse Practitioner
DX: D72.829 Elevated white blood cell count, unspecified (principal); R17 Unspecified jaundice
CPT/HCPCS: 36415; 80076; 85025

== ENCOUNTER 2023-08-02 12:31 | Outpatient (REF) | payer OTHER, SELFPAY ==
[2023-08-02 15:41] VITALS: PULSE 84; RESP 16; O2SAT 98
--- NOTE | 2023-08-02 15:45 | PFT_ITS ---
Flows: FEV1: 99 % of predicted at 3.90 L FVC: 91 % of predicted at 4.54 L FEV1/FVC: 86 % Bronchodilator response: Absent Volumes: Total lung capacity: 81 % of predicted at 5.85 L Residual volume: 67 % of predicted at 1.24 L Slow vital capacity: 85 % of predicted at 4.61 L Expiratory reserve volume: 59 % of predicted at 0.87 L Diffusion capacity: Mildly decreased, corrects to normal after adjustment for alveolar ventilation. Impression: No obstructive or restrictive ventilatory defect. No bronchodilator response. Decreased expiratory reserve volume suggests extrathoracic restriction likely secondary to abdominal obesity. Decreased diffusion capacity suggests emphysema. MTDD
== END 2023-08-02 12:32 | disposition home or self-care (01) ==
LOC: HO.RESP 12:31
PROVIDERS: PCP Nurse Practitioner; Visit Provider Nurse Practitioner Family
DX: J45.909 Unspecified asthma, uncomplicated (principal)
CPT/HCPCS: 94010; 94640; 94727; 94729

== ENCOUNTER → 2023-08-02 15:45 | Outpatient (BNV) | payer OTHER, SELFPAY | PROVIDERS: PCP Nurse Practitioner; Visit Provider Internal Medicine Pulmonary Disease | DX: J45.909 Unspecified asthma, uncomplicated (principal) | CPT/HCPCS: 94060; 94727; 94729 ==

== ENCOUNTER 2023-08-16 07:54 | Outpatient (REF) | payer OTHER, SELFPAY ==
--- NOTE | ~2023-08-16 | CT_ITS ---
EXAMINATION: CT CHEST WITHOUT CONTRAST CLINICAL INFORMATION: Follow-up peribronchial wall thickening, bronchiectasis and groundglass infiltrates COMPARISON: CT scan of chest on 06/23/2023 TECHNIQUE: Multidetector volumetric CT imaging of the chest was done. Axial MIP volume rendering provided. Sagittal and coronal reformatted images were obtained. This CT examination was performed using dose optimization techniques as appropriate, variously including the following: *Automated exposure control *Adjustment of mA and/or kV according to patient size (this includes techniques or standardized protocols for targeted exams where dose is matched to indication/reason for exam; i.e. extremities or head) *Use of iterative reconstruction technique DLP: 247 mGy-cm FINDINGS: LUNGS: There is interval marked resolution of left upper lobe groundglass infiltrates. A residual 9 mm groundglass opacity is seen in lateral left upper lobe apicoposterior segment, series 5 image #158. There is complete resolution of right middle lobe, left lingular lobe and left lower lobe groundglass infiltrates. PLEURA: No pleural effusion or pneumothorax is seen. PERICARDIUM: No pericardial effusion is seen. MEDIASTINUM AND AHSAN: Contrast TRACHEOBRONCHIAL TREE: Trachea and bilateral mainstem bronchi are patent. THORACIC AORTA: The thoracic aorta is normal in size and smooth in outline. CORONARY ARTERY CALCIFICATIONS: Present PULMONARY ARTERIES: The main pulmonary arteries appear to be normal in size. CHEST WALL AND LOWER NECK: The subcutaneous and muscular chest wall are intact with no focal lesion. No abnormal mass lesion could be seen in the visualized lower neck. BONES: No fracture or dislocation. No focal bone lesion diagnostic of metastatic disease could be seen in the thorax. VISUALIZED UPPER ABDOMEN: Bilateral adrenal glands are not enlarged. There is marked hepatic steatosis, mean attenuation of -1 Hounsfield unit, compared to splenic attenuation of 41.[address]/CT chest wo IV con IMPRESSION: 1. Interval marked resolution of left upper lobe groundglass infiltrates. 2. Complete resolution of left lingular lobe, right middle lobe and left lower lobe groundglass infiltrates. 3. A residual 9 mm groundglass opacity is seen in lateral left upper lobe apicoposterior segment. 4. Interval development of severe hepatic steatosis. According to the UPDATED 2017 Fleischner Society recommendations, the advised follow-up imaging for a single pure ground-glass nodule measuring between 6 and 10 mm is: CT at 6 to 12 months to confirm persistence, then CT every 2 years until 5 years if it persists. Fleischner guidelines were followed.
== END 2023-08-16 07:55 | disposition home or self-care (01) ==
LOC: HO.CT 07:54
PROVIDERS: PCP Nurse Practitioner; Visit Provider Nurse Practitioner Family
DX: G47.33 Obstructive sleep apnea (adult) (pediatric) (principal); R40.0 Somnolence; R93.89 Abnormal findings on diagnostic imaging of other specified body structures
CPT/HCPCS: 71250; 95806

== ENCOUNTER → 2023-08-16 08:41 | Outpatient (BNV) | payer OTHER, SELFPAY | PROVIDERS: PCP Nurse Practitioner; Visit Provider Internal Medicine | DX: G47.33 Obstructive sleep apnea (adult) (pediatric) (principal) | CPT/HCPCS: 95806 ==

== ENCOUNTER 2023-08-23 11:12 | Outpatient (AMB) | payer OTHER, SELFPAY ==
--- NOTE | 2023-08-23 11:12 | A.OFFVIS_ITS ---
Vital Signs 08/23/23 11:14 BP 118/68 Blood Pressure Location Rt brachial Position Sitting Pulse 92 Pulse Source Pulse Oximeter Pulse Oximetry (%) 95 Oxygen Delivery Method Room Air Intake Visit Reasons: cough Tumbler Tender Required: No Network Relations Consultant: Network Relations Consultant offered & declined Allergies No Known Allergies Allergy (Verified 08/23/23 11:16) Medication List - Last Reconciled 08/23/23 by Danika Trujillo LPN fluticasone propionate 110 mcg/actuation 2 puffs inhalation BID ibuprofen 600 mg PO Q6H PRN mometasone 100 mcg/actuation (Asmanex HFA) 1 puff inhalation BID HPI HPI cough: Details: Sarath is a pleasant 48 year male, former minimal smoker, with underlying asthma and severe JOLANTA. At the last visit, he was recovering from URI, treated with levaquin with complete resolution of symptoms. He feels back to baseline and denies cough, wheezing, chest tightness. He continues to report intermittent dyspnea on exertion. He denies orthopnea or BLE edema. He was prescribed Flovent which initially improved dyspnea, however patient discontinued as he felt it was contributing to weight gain. Today he presents to review chest CT as prior revealed abnormalities suggestive of an inflammatory/infectious processes, as well as PFT and home PSG. [facility] Medical History High cholesterol Social History (Updated 08/23/23 @ 11:17 by Danika Trujillo LPN) Alcohol intake: unknown Patient Tobacco Use Status: Former Tobacco user Tobacco use type: Cigarette Cigarette Packs Per Day: 0.5 Years Smoked: 4 Smoked in Last 30 Days: No Review of Systems Const Denies chills, Denies excessive sweating, Denies fever(s), Denies headache(s) and Denies night sweats Eyes Denies dry eyes, Denies irritation and Denies itchy eyes ENT Reports Normal hearing present and Denies headache(s) Card Denies chest pain, Denies chest pain at rest, Denies chest pain with activity, Denies claudication, Denies leg edema, Denies orthopnea and Denies paroxysmal nocturnal dyspnea Resp Denies chest congestion, Denies cough, Denies excessive phlegm production, Denies pain on inspiration, Denies pain with cough, Denies stridor and Denies wheezing Musc Denies myalgias Neuro Reports Normal hearing present and Denies headache(s) Endo Denies excessive sweating Tony/Lymph Denies lymphadenopathy Aller/Immun Denies itchy eyes, Denies seasonal rhinorrhea and Denies wheezing Physical Exam Vital Signs: Last Vital Signs Pulse 92 08/23/23 11:14 BP 118/68 08/23/23 11:14 Pulse Ox 95 08/23/23 11:14 Oxygen Delivery Method Room Air 08/23/23 11:14 Const General: cooperative, healthy appearing, comfortable, no acute distress, well developed and alert Nutritional Appearance: obese Orientation/consciousness: patient oriented x3 Limitations: no limitations HEENT Head: Yes normal to inspection, Yes normocephalic and Yes atraumatic Ears: hearing grossly normal bilaterally and external ears normal Eyes General: appearance normal, both eyes and all related structures Eyelids: Yes eyelids normal Sclerae: sclerae normal EOM: EOMs intact bilaterally Neck Neck: Yes normal visual inspection and Yes no lymphadenopathy Lymphatic: no lymphadenopathy noted Chest Chest palpation & inspection: normal inspection of the chest Resp Effort & Inspection: normal respiratory effort, able to speak in complete sentences, no audible wheezes, no cough, no stridor, not tachypneic, no tripod positioning and no use of accessory muscles Auscultation: clear to auscultation bilaterally Cardio Jugular venous distension: no JVD Rate: regular rate Rhythm: regular rhythm Skin Other: warm, dry General skin exam: no rashes or lesions noted Neuro General: patient oriented x3 Cranial nerves: Yes Normal hearing present Cognition (Neuro): normal cognition Gait exam (Neuro): Normal gait present Extrem General: Yes normal to inspection, Yes capillary refill normal, Yes no clubbing, cyanosis or edema and Yes no pedal edema Psych Appearance: grossly normal and well kempt Speech and movement: Normal speech and movement present and Clear speech present Affect: normal affect Attitude: cooperative Thought process: Normal thought process present Thought content: Normal thought content present Insight: Good insight present (Psych) Judgement: Good judgement present (Psych) Assessment & Plan Assessment & Plan (1) Asthma: Code(s): J45.909 - Unspecified asthma, uncomplicated Category: Medical (2) Dyspnea on exertion: Code(s): R06.09 - Other forms of dyspnea Category: Medical (3) Daytime somnolence: Code(s): R40.0 - Somnolence Category: Medical (4) Abnormal finding on CT scan: Code(s): R93.89 - Abnormal findings on diagnostic imaging of other specified body structures Category: Medical (5) Severe obstructive sleep apnea: Code(s): G47.33 - Obstructive sleep apnea (adult) (pediatric) Category: Medical (6) Nocturnal hypoxemia: Code(s): G47.34 - Idiopathic sleep related nonobstructive alveolar hypoventilation Category: Medical Plan Patient reports resolution of bronchitic symptoms after being treated with Levaquin. He continues to report dyspnea on exertion but would like to hold off on using daily inhaler at this time. He continues to report dyspnea on exertion. PFT revealed no obstructive or restrictive ventilatory defect. No bronchodilator response. Decreased expiratory reserve volume suggests extrathoracic restriction likely secondary to abdominal obesity. Decreased diffusion capacity suggests emphysema, however none noted on chest CT. Will send for echo to assess for cardiac component. Chest CT report not available however reviewed and significant improvement in opacities. Will await final read from radiologist and call patient with findings. Reviewed home sleep study which revealed AHI of 68 with significant nocturnal hypoxemia, lowest 76%. Recommendations made for in lab titration study. Will enter this. In the meantime started on APAP with settings of 6-16 cm. All questions were answered and patient is in agreement of plan. Will follow-up to review in lab titration results. Orders: Orders CA echo transthoracic complete Today G47.33 - Obstructive sleep apnea (adult) (pediatric), R06.09 - Other forms of dyspnea RT PSG in-lab sleep titration Today G47.33 - Obstructive sleep apnea (adult) (pediatric), G47.34 - Idiopathic sleep related nonobstructive alveolar hypoventilation Coding Level of Care Code Est Pt Level 4 (72611) Diagnoses Asthma J45.909 Dyspnea on exertion R06.09 Daytime somnolence R40.[address] scan R93.89 Severe obstructive sleep apnea G47.33 Nocturnal hypoxemia G47.34
[2023-08-23 11:14] VITALS: BP 118/68; PULSE 92; O2SAT 95
== END 2023-08-23 13:07 | disposition home or self-care (01) ==
PROVIDERS: PCP Nurse Practitioner; Visit Provider Nurse Practitioner Family
DX: J45.909 Unspecified asthma, uncomplicated (principal); R06.09 Other forms of dyspnea; R40.0 Somnolence; R93.89 Abnormal findings on diagnostic imaging of other specified body structures; G47.33 Obstructive sleep apnea (adult) (pediatric); G47.34 Idiopathic sleep related nonobstructive alveolar hypoventilation
CPT/HCPCS: 99214

== ENCOUNTER → 2023-08-23 11:12 | Outpatient (BNVA) | payer OTHER, SELFPAY | PROVIDERS: PCP Nurse Practitioner; Visit Provider Nurse Practitioner Family | DX: G47.33 Obstructive sleep apnea (adult) (pediatric) (principal); G47.34 Idiopathic sleep related nonobstructive alveolar hypoventilation; J45.909 Unspecified asthma, uncomplicated; R06.09 Other forms of dyspnea; R40.0 Somnolence; R93.89 Abnormal findings on diagnostic imaging of other specified body structures | CPT/HCPCS: 99212 ==

== ENCOUNTER → 2023-09-12 15:44 | Outpatient (REF) | payer OTHER, SELFPAY ==
--- NOTE | 2023-09-12 15:47 | CA_ITS ---
Transthoracic Echocardiogram Patient (Last, First, Middle): Sarath Rao, Gender: Male Date of : 1975 Age: 48 Procedure Date: 09/12/2023 Procedure Type: Transthoracic Echocardiogram Location: OP Height: 177.8 cm Weight: 108.86 kg BSA: 2.26 m2 Heart Rate: bpm BP: 140 / 90 mmHg Severity Of Illness Coordinator: Referring MD: Piedad Malin NP Symptoms: R06.09 - Other forms of dyspnea Study Quality: Adequate ECG Rhythm: Sinus Conclusions: - The left ventricular systolic function is mildly decreased. The calculated ejection fraction is 51% by biplane method. - No obvious valvular pathology seen on this study. Findings Procedure Information Contrast agent, definity, is being given per protocol without apparent complications. Left Ventricle Normal left ventricular cavity size. There is mildly increased left ventricular wall thickness. The left ventricular systolic function is mildly decreased. The calculated ejection fraction is 51% by biplane method. There is mild global hypokinesis. Diastolic function is normal for age. E/E prime ratio is <8, consistent with normal filling pressures. Right Ventricle Normal right ventricular cavity size and systolic function. Atria Both atria are normal in size. Aortic Valve There is a normal trileaflet aortic valve. There is no aortic valve stenosis. There is no aortic valve regurgitation. Mitral Valve The mitral valve appears normal. There is no mitral valve regurgitation. There is no mitral valve stenosis. Pulmonic Valve The pulmonic valve is likely normal. Tricuspid Valve Normal tricuspid valve structure. There is trace tricuspid valve regurgitation. There is no evidence of pulmonary hypertension. Great Vessels The asc aorta is normal in size. Venous The inferior vena cava is normal in size and collapses less than 50% with inspiration. Pericardium/Pleural There is no evidence of pericardial effusion. Prior Study Comparison No prior study available for comparison. Recommendations, Care & Conclusions No obvious valvular pathology seen on this study. Measurements 2D Linear Measurements IVSd: 1.23 0.6-0.9/0.6-1.0 cm LVIDd: 4.44 3.9-5.3/4.2-5.9 cm LVIDd Index: 1.96 2.4-3.2/2.2-3.1 cm/m2 LVIDs: 2.91 2.0-3.6 cm LVPWd: 1.25 0.7-1.1 cm Ao Root: 3.10 2.1-3.5 cm LA Diam: 3.90 2.7-3.8/3.0-4.0 cm LAIDs Index: 1.73 1.5-2.3 cm/m2 LV Mass: 253.60 67-162/88-224 g LV Mass Index: 112.21 43-95/49-115 g/m2 LVOT Diam: 2.20 3.0+(-)1.3 cm 2D Systolic Function EF 4C: 46.80 >55% EF 2C: 48.50 >55% EF BiP: 50.90 >55% Mitral Valve MV Pk E: 0.73 MV PK A: 0.63 MV Decel Time: 165.00 E/A: 1.20 E'Lateral: 11.10 E'Medial: 6.96 E/E' Med: 10.50 E/E' Lat: 6.60 PHT: 48.00 MVA PHT: 4.58 Decel Emmet: 4.43 Aortic Valve AoV Pk Ramon: 1.34 AoV Pk Grad: 7.00 LVOT LVOT Pk Ramon: 0.81 LVOT Mn Ramon: 0.44 LVOT VTI: 0.16 LVOT Pk Grad: 3.00 LVOT Mn Grad: 1.00 LVOT Diam: 2.20 LVOT Area: 3.80 Diastolic Function MV Pk E: 0.73 MV Pk A: 0.63 E/A: 1.20 E'Medial: 6.96 E/E' Med: 10.50 E' Laterial: 11.10 E/E' Lat: 6.60 Right Ventricle TAPSE (mm): 15.00 TVS' Ramon: 16.00 Tricuspid Valve TR Pk Ramon: 1.96 TR Pk Grad: 15.00 RA Press: 3.00 RVSP: 18.00 Great Vessels Aorta Ao Root-2D: 3.10 2.0-3.7 cm Ao Asc: 2.90 2.1-3.4 cm Pulmonary Valve PV Pk Ramon: 0.98 Peak PV Grad: 4.00 Updated in Other Vendor System with Status of Final Noah Manzano MD electronically signed on 09/13/2023 11:37:55 AM with status of Final
== END ==
LOC: HO.CARD 15:44
PROVIDERS: PCP Nurse Practitioner; Visit Provider Nurse Practitioner Family
DX: R06.09 Other forms of dyspnea (principal)
CPT/HCPCS: 93306; Q9957

== ENCOUNTER → 2023-09-12 15:47 | Outpatient (BNV) | payer OTHER, SELFPAY | PROVIDERS: PCP Nurse Practitioner; Visit Provider Internal Medicine | DX: R06.09 Other forms of dyspnea (principal) | CPT/HCPCS: 93306 ==

== ENCOUNTER → 2023-10-02 20:30 | Outpatient (REF) | payer OTHER, SELFPAY | LOC: HO.SL 20:30 | PROVIDERS: PCP Nurse Practitioner; Visit Provider Nurse Practitioner Family | DX: G47.33 Obstructive sleep apnea (adult) (pediatric) (principal); G47.34 Idiopathic sleep related nonobstructive alveolar hypoventilation | CPT/HCPCS: 95811 ==

== ENCOUNTER → 2023-10-02 21:25 | Outpatient (BNV) | payer OTHER, SELFPAY | PROVIDERS: PCP Nurse Practitioner; Visit Provider Psychiatry & Neurology Neurology | DX: G47.33 Obstructive sleep apnea (adult) (pediatric) (principal); G47.34 Idiopathic sleep related nonobstructive alveolar hypoventilation | CPT/HCPCS: 95811 ==

== ENCOUNTER 2023-10-13 12:05 | Outpatient (AMB) | payer OTHER, SELFPAY ==
--- NOTE | 2023-10-13 10:10 | A.OFFVIS_ITS ---
Intake Visit Reasons: sleep study results Allergies No Known Allergies Allergy (Verified 08/23/23 11:16) HPI HPI sleep study results: Details: Sarath is a pleasant 48 year male, former minimal smoker, with underlying asthma and severe JOLANTA. At baseline, patient reports minimal respiratory symptoms, using albuterol p.r.n. with good effect. Today's visit was conducted via telephone to review results of in lab titration study. He denies any respiratory symptoms currently. [facility] Medical History High cholesterol Social History (Updated 08/23/23 @ 11:17 by Danika Trujillo LPN) Alcohol intake: unknown Patient Tobacco Use Status: Former Tobacco user Tobacco use type: Cigarette Cigarette Packs Per Day: 0.5 Years Smoked: 4 Review of Systems Const All systems reviewed & are unremarkable except as noted in HPI and below Physical Exam Const General: cooperative and no acute distress Orientation/consciousness: patient oriented x3 Resp Effort & Inspection: normal respiratory effort, able to speak in complete sentences and no audible wheezes Neuro General: patient oriented x3 Psych Mental Status: mental status grossly normal Speech and movement: Clear speech present Attitude: cooperative Thought process: Normal thought process present Thought content: Normal thought content present Insight: Good insight present (Psych) Judgement: Good judgement present (Psych) Telehealth Telehealth Telehealth Platform: Telephone Location of provider rendering services: practice address Location of patient: address on file Patient Identification confirmed using: Name, : Yes Telehealth method: voice only Patient verbally consented to treatment: Yes Patient verbally consented to billing insurance company: Yes Patient informed of any privacy concerns related to visit: Yes Results Reviewed Results Reviewed: Assessment & Plan Assessment & Plan (1) Asthma: Code(s): J45.909 - Unspecified asthma, uncomplicated Category: Medical (2) Dyspnea on exertion: Code(s): R06.09 - Other forms of dyspnea Category: Medical (3) Abnormal finding on CT scan: Code(s): R93.89 - Abnormal findings on diagnostic imaging of other specified body structures Category: Medical (4) Severe obstructive sleep apnea: Code(s): G47.33 - Obstructive sleep apnea (adult) (pediatric) Category: Medical Plan Reviewed in lab titration study with patient today which confirmed the diagnosis of severe sleep apnea. With the use of CPAP, with pressure at 12 there is complete resolution of apneic events as well as nocturnal hypoxemia. Will send in prescription for CPAP mode and pressure setting of 12 cm with close monitoring for compliance and benefits. Sleep hygiene education reviewed. He is aware if there are any issues with the mask or CPAP machine, he will call the office. All questions were answered and patient is in agreement of plan. Will follow up in 8 weeks. Scribe Plan - Not visible on output: I spent 12 minutes speaking with the patient on the phone plus an additional 10 minutes reviewing and updating records for a total of 22 minutes Coding Level of Care Code Tele Est Pt Level 3 (83194) Diagnoses Asthma J45.909 Dyspnea on exertion R06.[address] scan R93.89 Severe obstructive sleep apnea G47.33 Comment 12
== END 2023-10-13 12:06 | disposition home or self-care (01) ==
LOC: HO.HPSW 12:05
PROVIDERS: PCP Nurse Practitioner; Visit Provider Nurse Practitioner Family
DX: J45.909 Unspecified asthma, uncomplicated (principal); R06.09 Other forms of dyspnea; R93.89 Abnormal findings on diagnostic imaging of other specified body structures; G47.33 Obstructive sleep apnea (adult) (pediatric)
CPT/HCPCS: 99213

== ENCOUNTER → 2023-10-13 12:05 | Outpatient (BNVA) | payer OTHER, SELFPAY | PROVIDERS: PCP Nurse Practitioner; Visit Provider Nurse Practitioner Family ==

== ENCOUNTER 2023-12-13 11:52 | Outpatient (REF) | payer OTHER, SELFPAY ==
[2023-12-13 13:45] LABS: MANUAL DIFF FLAG NO
[2023-12-13 14:05] LABS: Basophils Percent Auto 0.4 % (0-2); Eosinophils Absolute Auto 0.3 X10*3/uL (0.0-0.4); Hematocrit 45.9 % (42.0-52.0); Hemoglobin 15.8 g/dl (14.0-18.0); Imm Gran Abs Auto 0.06 X10*3/uL (0.00-0.03); Imm Gran Pct Auto 0.7 % (0.0-0.4); Lymphocytes Absolute Auto 2.3 X10*3/uL (1.2-4.9); Lymphocytes Percent Auto 26.8 % (20-40); Mean Corpuscular HGB Conc 34.4 g/dl (31.0-36.0); Mean Corpuscular Volume 90.2 fL (80.0-98.0); Mean Platelet Volume 11.1 fL (9.4-12.4); Monocytes Absolute Auto 0.7 X10*3/uL (0.1-1.2); Monocytes Percent Auto 8.6 % (2-11); Neutrophils Absolute Auto 5.1 x10*3/uL (2.0-8.3); Neutrophils Percent Auto 59.5 % (45-73); Platelet Count 320 X10*3/uL (160-400); Red Blood Count 5.09 X10*6/uL (4.60-5.80); Red Cell Distribution Width 11.9 % (11.0-16.0); White Blood Count 8.5 X10*3/uL (4.8-10.8)
[2023-12-13 14:26] LABS: Appearance Urine Clear; Color Urine Dark Yellow; Glucose Urine UA Negative (Negative); Leukocyte Esterase Urine Negative (Negative); Nitrite Urine Negative (Negative); PH 5.5 (5.0-9.0); Specific Gravity - Urine 1.025 (1.005-1.025); Urine Blood Negative (Negative); Urine Ketones Trace mg/dL (Negative); Urine Protein Negative (Neg-Trace)
[2023-12-13 14:33] LABS: Bacteria Urine None Seen (None Seen); Hyaline Casts Urine 0-2 /LPF (0-2); RBC Urine 0-2 /HPF (0-2); Squamous Epithelial Cell Urine 0-2 /HPF (0-2); WBC Urine 0-5 /HPF (0-5)
[2023-12-13 14:49] LABS: Alanine Aminotransferase 37 U/L (0-40); Albumin Level 4.5 g/dL (3.5-5.0); Alkaline Phosphatase 62 U/L (39-117); Anion Gap 14 (12-20); Aspartate Amino Transferase 21 U/L (5-37); Bilirubin Direct 0.4 mg/dL (0.0-0.5); Bilirubin Total 1.6 mg/dL (0.0-1.0); Blood Urea Nitrogen 17 mg/dL (9-16); Calcium 9.7 mg/dL (8.4-10.2); Carbon Dioxide 25 mmol/L (22-29); Chloride 105 mmol/L (96-108); Estimated Glomerular Filt Rate > 60; Glucose Random 107 mg/dL (60-115); Potassium 4.2 mmol/L (3.3-5.1); Sodium 140 mmol/L (135-145); Total Protein 7.5 g/dL (6.5-8.0)
== END 2023-12-13 11:53 | disposition home or self-care (01) ==
LOC: HO.HHCL 11:52
PROVIDERS: Referring Provider Nurse Practitioner; Visit Provider Internal Medicine Geriatric Medicine
DX: R05.1 Acute cough (principal); R06.2 Wheezing; R50.9 Fever, unspecified; R74.8 Abnormal levels of other serum enzymes; R10.9 Unspecified abdominal pain
CPT/HCPCS: 36415; 80048; 80076; 81001; 85025

== ENCOUNTER 2024-02-28 07:40 | Outpatient (REF) | payer OTHER, SELFPAY | END 2024-02-28 07:41 | disposition home or self-care (01) | LOC: HO.CT 07:40 | PROVIDERS: PCP Nurse Practitioner; Visit Provider Nurse Practitioner Family | DX: R91.1 Solitary pulmonary nodule (principal) | CPT/HCPCS: 71250 ==

== ENCOUNTER → 2024-02-28 07:41 | Outpatient (BNV) | payer OTHER, SELFPAY | PROVIDERS: PCP Nurse Practitioner; Visit Provider Radiology Diagnostic Radiology | DX: R91.1 Solitary pulmonary nodule (principal) | CPT/HCPCS: 71250 ==

== ENCOUNTER 2024-04-10 09:09 | Outpatient (AMB) | payer OTHER, SELFPAY ==
[2024-04-10 09:20] VITALS: BP 144/96; PULSE 82; O2SAT 97; BMI 31.6
--- NOTE | 2024-04-10 09:20 | MHC.OFFVIS ---
Vital Signs 04/10/24 09:20 Height 5 ft 10 in Weight 220 lb 7.396 oz BMI 31.6 BP 144/96 H Blood Pressure Location Lt brachial Position Sitting Pulse 82 Pulse Source Pulse Oximeter Pulse Oximetry (%) 97 Oxygen Delivery Method Room Air Intake Visit Reasons: Colonoscopy Screening Intake Note: NEW PATIENT Reason; colo scrn Prior hx of colo/egd? N Concerns/Questions? No significant concerns per pt. Allergies No Known Allergies Allergy (Verified 04/10/24 09:21) HPI HPI Colonoscopy Screening: Details: 48 year old? male with past medical history of nocturnal hypoxemia, severe obstructive sleep apnea, asthma is here today for pre colonoscopy screening.? Patient was sent to us by his PCP.? This is his first colonoscopy screening.? Patient denies any gastrointestinal symptoms in the past or at present.? Denies any personal or family history of gastrointestinal disease, colon polyps, or CRC.? Patient never had anesthesia in the past. History of sleep apnea, patient lost almost 70 lb or so and not using CPAP at this time. ? Patient states that insurance was not going to cover. 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 Denies any history of cardiac, renal, or hepatic disease.?? No history of infectious? diseases like hepatitis A, B, C, HIV or tuberculosis.? Patient is not on any anticoagulation [facility] Medical History High cholesterol Social History Alcohol intake: unknown Patient Tobacco Use Status: Former Tobacco user Tobacco use type: Cigarette Cigarette Packs Per Day: 0.5 Years Smoked: 4 Review of Systems Const Denies weight gain and Denies weight loss ENT Reports no additional complaints, Denies dysphagia and Denies odynophagia Card Reports no additional complaints Resp Reports no additional complaints GI Denies abdominal pain, Denies belching, Denies melena, Denies bloating, Denies change in bowel habits, Denies dysphagia, Denies excessive flatus, Denies dyspepsia, Denies heartburn, Denies diarrhea, Denies loose stools, Denies nausea, Denies odynophagia and Denies vomiting Reports no additional complaints Musc Reports no additional complaints Neuro Reports no additional complaints Psych Reports no additional complaints Endo Reports no additional complaints Physical Exam Vital Signs: Last Vital Signs Pulse 82 04/10/24 09:20 BP 144/96 H 04/10/24 09:20 Pulse Ox 97 04/10/24 09:20 Oxygen Delivery Method Room Air 04/10/24 09:20 BMI result Body Mass Index 31.6 Const General: healthy appearing, no acute distress and well developed Nutritional Appearance: well nourished Orientation/consciousness: patient oriented x3 Resp Effort & Inspection: normal respiratory effort, able to speak in complete sentences, no tracheal deviation and symmetric chest movement Auscultation: clear to auscultation bilaterally Cardio Rate: regular rate GI Inspection: Yes normal to inspection and No distended Palpation (GI): Soft to palpation, not firm, nontender and No hepatosplenomegaly present Auscultation: normal bowel sounds General: Yes no CVA tenderness Back/Spine/Pelvis Back: no CVA tenderness Skin General skin exam: elasticity normal, turgor normal and dry skin Neuro General: patient oriented x3 Psych Appearance: grossly normal Mental Status: mental status grossly normal Assessment & Plan Assessment & Plan (1) Screen for colon cancer: Code(s): Z12.11 - Encounter for screening for malignant neoplasm of colon Plan Patient denies any GI, cardiac or respiratory symptoms.? Denies any issues with anesthesia in the past.? History of sleep apnea, currently not using CPAP. Insurance denied. Patient will stop to see pulmonology today to see if he can get assistance.? No history infectious diseases in the past or present.? Not on any anticoagulation therapy.? No family or personal history of colon cancer or polyps.? Patient denies melena, hematochezia, unintentional weight loss or ribbon like stools.? Discussed at length the pre-procedure,? prep, diet & medications as well as what to expect prior, during and after the procedure.?? Stressed the importance of good bowel prep.? Recommended the use of Vaseline or Calmoseptine OTC & baby wipes with bowel movements to promote comfort.? ?Patient verbalizes understanding and agrees to plan of care.? He was given the opportunity to ask questions and all questions answered.? We will see him after the procedure.? Medications: New polyethylene glycol 3350 (Miralax) As directed by gastroenterology department at [facility] 238 grams PO ONCE 238 grams 0RF Z12.11 - Encounter for screening for malignant neoplasm of colon bisacodyl (Dulcolax (bisacodyl)) take 4 tabs at noon the day before your colonoscopy 20 mg (4 x 5 mg) PO ONCE 4 tabs 0RF 1 day Z12.11 - Encounter for screening for malignant neoplasm of colon Coding Level of Care Code New Pt Level 3 (02228) Diagnoses Screen for colon cancer Z12.11 Time Spent (min) 40 Comment 30 minutes spent with patient and additional 10 minutes spent reviewing his records
== END 2024-04-10 10:32 | disposition home or self-care (01) ==
PROVIDERS: PCP Nurse Practitioner; Visit Provider Nurse Practitioner Family
DX: Z01.818 Encounter for other preprocedural examination (principal); Z12.11 Encounter for screening for malignant neoplasm of colon
CPT/HCPCS: 99202

== ENCOUNTER → 2024-04-10 09:09 | Outpatient (BNVA) | payer OTHER, SELFPAY | PROVIDERS: PCP Nurse Practitioner; Visit Provider Nurse Practitioner Family | DX: Z12.11 Encounter for screening for malignant neoplasm of colon (principal) | CPT/HCPCS: 99202 ==

== ENCOUNTER 2024-05-29 11:51 | Outpatient (REF) | payer OTHER, SELFPAY ==
--- NOTE | ~2024-05-29 | XR_ITS ---
EXAMINATION: XR SHOULDER 2 OR MORE VIEWS LEFT HISTORY: pain COMPARISON: There are no prior studies available for comparison. FINDINGS: Five views of the left shoulder are submitted. Osseous mineralization is normal. There is no fracture or dislocation. The glenohumeral joint is maintained. There is mild narrowing of the AC joint. The soft tissues are unremarkable. XR/XR shoulder LT min 2V IMPRESSION: Mild narrowing of the AC joint. Otherwise unremarkable examination of the left shoulder. Electronically signed by: Sami Williamosn MD 05/29/2024 01:43 PM EST
--- OUTSIDE RECORDS SUMMARY | 2024-05-29 14:54 | XMS_ITS | Encounter Summary ---
Author Organization [employer] [facility] Address [address] [place] [address] 7t [place] [address] Care Team Providers Care Repairer Hairspring Name Role Phone Bhumika Melendez NP Primary Care Provider [phone] Encounter Details Date Type Department Care Team (Latest Contact Info) Description 03/11/2021 Abstract [facility] CONVERSIONS Dental, Provider, DDS Social History Tobacco [...] Care Team (Late st Contact Info) Description 06/26/2024 9:00 AM EDT Office Visit [facility] ADULT DENTAL [address] [place] [address] Warren, Chela [address] [place] [address] documented as of this encounter Visit Diagnoses Not on filedocumented in this encounter Care Teams Repairer Hairspring Relationship Specialty Start Date End Date Bhumika Melendez NP [address] [place] [address] PCP - General Family Medicine 04/14/23 documented as of this encounter
--- OUTSIDE RECORDS SUMMARY | 2024-05-29 14:54 | XMS_ITS | Encounter Summary ---
Author Organization [employer] Address [address] [facility] 7t [place] [address] Care Team Providers Care Front Desk Representative Name Role Phone Bhumika Melendez NP Primary Care Provider [phone] Reason for Visit * Reason Onset Date Comments Durable Medical Equipment 04/26/2024 Encounter Details Date Type Department Care Team ([facility] st Contact Info) Description 04/26/2024 Telephone [facility] [address] [place] [address] Bhumika Melendez NP [address] [place] [address] Durable Medical Equipment Social History Tobacco Use [...] 05/10/2024 3:05 PM EST Received fax from [facility] confirming CPAP set up completion. Sent to scan. * Telephone Encounter - Barbara Dueñas - 05/01/2024 12:04 PM EST Received fax from [facility] confirming receipt of notes and Rx and stating pt has been contacted/vm leftto schedule CPAP appointment. Fax scanned into media. * Telephone Encounter - Barbara uDeñas - 04/26/2024 9:51 AM EST Received message in [facility] that CPAP order was on hold pending Sleep Study and clinical note. Documents scanned into [facility] as requested. Sleep Study also scanned into media. documented in this encounter Plan of Treatment Upcoming Encounters Date Type Department Care Team ([facility] Contact Info) Description 06/26/2024 9:00 AM EDT Office Visit [facility] [address] [place] [address] Chela Kelley [address] [place] [address] documented as of this encounter Visit Diagnoses Not on filedocumented in this encounter Additional Health Concerns Assessment Noted Time PHQ-9 Depression Total Score: 0 04/14/19 24 1:12 PM EST documented as of this encounter Care Teams Front Desk Representative Relationship Specialty Start Date End Date Bhumika Melendez NP [address] [place] [address] PCP - General Family Medicine 04/14/23 documented as of this encounter
--- OUTSIDE RECORDS SUMMARY | 2024-05-29 14:54 | XMS_ITS | Encounter Summary ---
Author Organization [employer] Address [address] [facility] 7t [place] [address] Care Team Providers Care Weapons Designer Name Role Phone Bhumika Melendez NP Primary Care Provider [phone] Reason for Visit * Reason Onset Date Comments Letter for School/Work 08/04/2023 Encounter Details Date Type Department Care Team ([facility] st Contact Info) Description 08/04/2023 Telephone [facility] [address] [place] [address] Bhumika Melendez NP [address] [place] [address] Letter for School/Work Social History Tobacco Use [...] already received letter/ pt. Advise to call [facility] if any questions or concerns. Pt. Verbally greed and understood. * Telephone Encounter - Ethan Pina - 08/08/2023 11:13 AM EDT Tc from pt returning call. * Telephone Encounter - Jose Lora RN - 08/08/2023 9:40 AM EDT T/C to pt. For below message, No answer. LVM to call back on [phone]. * Telephone Encounter - Jose Lora RN - 08/04/2023 3:43 PM EDT Please review and advise for below request. 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 States job is okay, only needs letter. Pt returns to work Monday (08/06) Any questions, contact pt at [phone] documented in this encounter Plan of Treatment Upcoming Encounters Date Type Department Care Team (Late st Contact Info) Description 06/26/2024 9:00 AM EDT Office Visit [facility] ADULT DENTAL [address] [place] [address] Chela Kelley [address] [place] [address] documented as of this encounter Visit Diagnoses Not on filedocumented in this encounter Additional Health Concerns Assessment Noted Time PHQ-9 Depression Total Score: 0 04/14/19 24 1:12 PM EST documented as of this encounter Care Teams Weapons Designer Relationship Specialty Start Date End Date Bhumika Melendez NP [address] [place] [address] PCP - General Family Medicine 04/14/23 documented as of this encounter
--- OUTSIDE RECORDS SUMMARY | 2024-05-29 14:54 | XMS_ITS | Encounter Summary ---
Author Organization [employer] Address [address] [facility] [address]t [place] [address] Care Team Providers Care Automatic Car Wash Attendant Name Role Phone Bhumika Melendez NP Primary Care Provider [phone] Reason for Visit * Reason Onset Date Comments chartprep 05/14/2024 Encounter Details Date Type Department Care Team ([facility] Contact Info) Description 05/14/2024 Telephone [facility] [address] [place] [address] Jigar Lawson [place] chartprep Social History Tobacco Use Types Packs/Day [...] Description 06/26/2024 9:00 AM EDT Office Visit [facility] ADULT DENTAL [address] [place] [address] Chela Kelley [address] [place] [address] documented as of this encounter Visit Diagnoses Not on filedocumented in this encounter Additional Health Concerns Assessment Noted Time PHQ-9 Depression Total Score: 0 04/14/19 1:12 PM EST documented as of this encounter Care Teams Automatic Car Wash Attendant Relationship Specialty Start Date End Date Bhumika Melendez NP [address] [place] [address] PCP - General Family Medicine 04/14/23 documented as of this encounter
--- OUTSIDE RECORDS SUMMARY | 2024-05-29 14:54 | XMS_ITS | Encounter Summary ---
Author Organization [employer] Address [address] [facility] [address] [place] [address] Care Team Providers Care Wood Preparation Supervisor Name Role Phone Bhumika Melendez NP Primary Care Provider [phone] Encounter Details Date Type Department Care Team (Late st Contact Info) Description 05/29/2024 10:45 AM EST Office Visit [facility] MEDICINE [address] [place] [address] Bhumika Melendez NP [address] [place] [address] Acute pain of left shoulder (Primary Dx) Social History Tobacco Use Types Packs/Day Years Used Date Smoking Tobacco: Former Cigarettes Passive Smoke Exposure: Never Smokeless Tobacco: Never Comments:Patient reports smo mukund half ppd for 4 years. Quit 04/03/2023 Alcohol Use Standard Drinks/Week Comments Yes 0 (1 standard drink = 0.6 oz pure alcohol) drinks 2x per month about 1/2 bottle of wine Alcohol Answer Date Recorded How often do you have a drink containing alcohol ? 2 05/29/2024 Average Number of Drinks Not on file 025 Frequency of Binge Drinking Not on file 05/05 Depression Answer Date Recorded Patient Health Questionnaire-9 Score 10 05/29/2024 Patient Health Questionnaire-9 Score 10 05/29/2024 Last PHQ-9: Questionnaire Data Not on file 0 05/29/2024 Housing Stability Answer Date Recorded What is your housing situation today? I do not have housing (Staying with others, in a hotel, in a halfway, living outside on the street, on a beach, in a car, or in a park 05/29/[address] you li ve. Do you have problems with any of the following? None of the above 05/29/2024 Food Insecurity Answer Date Recorded Within the past 12 months, y ou worried that your food would run out before you got money to buy more: Never True 2024 Within the past 12 months,th e food you bought just didn't last and you didn't have enough money to get more: Sometimes True 05/29/2024 Transportation Answer Date Recorded In the past 12 months, has l ack of transportation kept you from medical appts, meetings, work or from getting things needed for daily living? No 05/29/2024 Utilities Answer Date Recorded In the past 12 months, has t he electric, gas, oil or water company threatened to shut off services in your home? No 05/29/2024 Depression Answer Date Recorded Patient Health Questionnaire-2 Score 2 05/29/2024 Internet Access Answer Date Recorded Internet Access Q1 Yes 05/29/2024 Internet Access Q2 Not on file 05/29/2024 Sex and Gender Information Value Date Recorded Sex Assigned at Male 01/31/2022 10:16 AM EDT Legal Sex Male 10:16 AM EDT Gender Identity Male 04/26/2022 8:21 AM EST Sexual Orientation Choose not to disclose 2021 10:16 AM EDT documented as of this encounter Last Filed Vital Signs Vital Sign Reading Time Taken Comments Blood Pressure 118/76 05/29/2024 11:34 AM EST Pulse 83 05/29/2024 10:39 AM EST Temperature 36.7 ??C (98 ??F) 05/29/2024 10:39 AM EST Respiratory Rate 18 05/29/2024 10:39 AM EST Oxygen Saturation 97% 05/29/2024 10:39 AM EST Inhaled Oxygen Concentration - - Weight 102 kg (224 lb) 05/29/2024 10:39 AM EST Height 177.8 cm (5' 10 ) 05/29/2024 10:39 AM EST Body Mass Index 32.14 05/29/2024 10:39 AM EST documented in this encounter Miscellaneous Notes * Patient Education Note - Bhumika Melendez NP - 05/29/2024 4:22 PM EST Images from the original note were not included. Patient Education Table of Contents Shoulder Exercises To view videos and all your education online visit, [email or web address] or scan this QR code with your smartphone. Access to this content will in one year. Shoulder Exercises Ask your health care provider which exercises are safe for you. Do exercises exactly as told by your health care provider and adjust them as directed. It is normal to feel mild stretching, pulling, tightness, or discomfort as you do these exercises. Stop right away if you feel sudden pain or your pain gets worse. Do not begin these exercises until told by your health care provider. Stretching exercises External rotation and abduction This exercise is sometimes called corner stretch. The exercise rotates your arm outward (external rotation) and moves your arm out from your body (abduction). 1. global supply chain director a doorway with one of your feet slightly in front of the other. This is called a staggered stance. If you cannot reach your forearms to the door frame, stand facing a corner of a room. Choose one of the following positions as told by your health care provider: Place your hands and forearms on the door frame above your head. Place your hands and forearms on the door frame at the height of your head. Place your hands on the door frame at the height of your elbows. Slowly move your weight onto your front foot until you feel a stretch across your chest and in the front of your shoulders. Keep your head and chest upright and keep your abdominal muscles tight. Hold for seconds. To release the stretch, shift your weight to your back foot. Repeat times. Complete this exercise times a day. Extension, standing 1. Stand and hold a broomstick, a cane, or a similar object behind your back. Your hands should be a little wider than shoulder-width apart. Your palms should face away from your back. Keeping your elbows straight and your shoulder muscles relaxed, move the stick away from your body until you feel a stretch in your shoulders (extension). Avoid shrugging your shoulders while you move the stick. Keep your shoulder blades tucked down toward the middle of your back. Hold for seconds. Slowly return to the starting position. Repeat times. Complete this exercise times a day. Mdkbi-uf-njgyiy exercises Pendulum 1. Stand near a wall or a surface that you can hold onto for balance. Bend at the waist and let your left / right arm hang straight down. Use your other arm to support you. Keep your back straight and do not lock your knees. Relax your left / right arm and shoulder muscles, and move your hips and your trunk so your left / right arm swings freely. Your arm should swing because of the motion of your body, not because you are using your arm or shoulder muscles. Keep moving your hips and trunk so your arm swings in the following directions, as told by your health care provider: Side to side. Forward and backward. In clockwise and counterclockwise circles. Continue each motion for seconds, or for as long as told by your health care provider. Slowly return to the starting position. Repeat times. Complete this exercise times a day. Shoulder flexion, standing 1. Stand and hold a broomstick, a cane, or a similar object. Place your hands a little more than shoulder-width apart on the object. Your left / right hand should be palm-up, and your other hand should be palm-down. Keep your elbow straight and your shoulder muscles relaxed. Push the stick up with your healthy armto raise your left / right arm in front of your body, and then over your head until you feel a stretch in your shoulder (flexion). Avoid shrugging your shoulder while you raise your arm. Keep your shoulder blade tucked down towardthe middle of your back. Hold for seconds. Slowly return to the starting position. Repeat times. Complete this exercise times a day. Shoulder abduction, standing 1. Stand and hold a broomstick, a cane, or a similar object. Place your hands a little more than shoulder-width apart on the object. Your left / right hand should be palm-up, and your other hand should be palm-down. Keep your elbow straight and your shoulder muscles relaxed. Push the object across your body towardyour left / right side. Raise your left / right arm to the side of your body (abduction) until you feel a stretch in your shoulder. Do not raise your arm above shoulder height unless your health care provider tells you to do that. If directed, raise your arm over your head. Avoid shrugging your shoulder while you raise your arm. Keep your shoulder blade tucked down towardthe middle of your back. Hold for seconds. Slowly return to the starting position. Repeat times. Complete this exercise times a day. Internal rotation 1. Place your left / right hand behind your back, palm-up. Use your other hand to dangle an exercise band, a broomstick, or a similar object over your shoulder. Grasp the band with your left / right hand so you are holding on to both ends. Gently pull up on the band until you feel a stretch in the front of your left / right shoulder. Themovement of your arm toward the center of your body is called internal rotation. Avoid shrugging your shoulder while you raise your arm. Keep your shoulder blade tucked down towardthe middle of your back. Hold for seconds. Release the stretch by letting go of the band and lowering your hands. Repeat times. Complete this exercise times a day. Strengthening exercises External rotation 1. Sit in a stable chair without armrests. Secure an exercise band to a stable object at elbow height on your left / right side. Place a soft object, such as a folded towel or a small pillow, between your left / right upper arm and your body to move your elbow about 4 inches (10 cm) away from your side. Hold the end of the exercise band so it is tight and there is no slack. Keeping your elbow pressed against the soft object, slowly move your forearm out, away from your abdomen (external rotation). Keep your body steady so only your forearm moves. Hold for seconds. Slowly return to the starting position. Repeat times. Complete this exercise times a day. Shoulder abduction 1. Sit in a stable chair without armrests, or stand up. Hold a lb / kg weight in your left / right hand, or hold an exercise band with both hands. Start with your arms straight down and your left / right palm facing in, toward your body. Slowly lift your left / right hand out to your side (abduction). Do not lift your hand above shoulder height unless your health care provider tells you that this is safe. Keep your arms straight. Avoid shrugging your shoulder while you do this movement. Keep your shoulder blade tucked down toward the middle of your back. Hold for seconds. Slowly lower your arm, and return to the starting position. Repeat times. Complete this exercise times a day. Shoulder extension 1. Sit in a stable chair without armrests, or stand up. Secure an exercise band to a stable object in front of you so it is at shoulder height. Hold one end of the exercise band in each hand. Straighten your elbows and lift your hands up to shoulder height. Squeeze your shoulder blades together as you pull your hands down to the sides of your thighs (extension). Stop when your hands are straight down by your sides. Do not let your hands go behind your body. Hold for seconds. Slowly return to the starting position. Repeat times. Complete this exercise times a day. Shoulder row 1. Sit in a stable chair without armrests, or stand up. Secure an exercise band to a stable object in front of you so it is at chest height. Hold one end of the exercise band in each hand. Position your palms so that your thumbs are facing the ceiling (neutral position). Bend each of your elbows to a 90-degree angle (right angle) and keep your upper arms at your sides. Step back or move the chair back until the band is tight and there is no slack. Slowly pull your elbows back behind you. Hold for seconds. Slowly return to the starting position. Repeat times. Complete this exercise times a day. Shoulder press-ups 1. Sit in a stable chair that has armrests. Sit upright, with your feet flat on the floor. Put your hands on the armrests so your elbows are bent and your fingers are pointing forward. Your hands should be about even with the sides of your body. Push down on the armrests and use your arms to lift yourself off the chair. Straighten your elbows and lift yourself up as much as you comfortably can. Move your shoulder blades down, and avoid letting your shoulders move up toward your ears. Keep your feet on the ground. As you get stronger, your feet should support less of your body weight as you lift yourself up. Hold for seconds. Slowly lower yourself back into the chair. Repeat times. Complete this exercise times a day. Wall push-ups 1. Stand so you are facing a stable wall. Your feet should be about one arm- length away from the wall. Lean forward and place your palms on the wall at shoulder height. Keep your feet flat on the floor as you bend your elbows and lean forward toward the wall. Hold for seconds. Straighten your elbows to push yourself back to the starting position. Repeat times. Complete this exercise times a day. This information is not intended to replace advice given to you by your health care provider. Make sure you discuss any questions you have with your health care provider. Document Released: 2006-02-01 Document Updated: 2022-05-10 Document Reviewed: 2022-05-10 Elsevier Patient Education ? 2023 [employer] documented in this encounter Plan of Treatment Upcoming Encounters Date Type Department Care Team (Late st Contact Info) Description 06/26/2024 9:00 AM EDT Office Visit [facility] [address] [place] [address] Chela Kelley [address] [place] [address] documented as of this encounter Procedures Procedure Name Priority Date/Time Associated Diagnosis Comments XR SHOULDER 2+ VIEWS LEFT Routine 05/29/2024 11:51 AM EST Acute pain of left shoulder documented in this encounter Results * XR Shoulder 2+ Views Left (05/29/2024 11:51 AM EST) Anatomical Region Laterality Modality Upper Extremities, Shoulder Left Radi ographic Imaging 05/29/2024 11:5 1 AM EST Narrative 05/29/2024 1:46 PM EST ?[facility] ?[address] ?[place] [address] ?XRay Report ? Signed ? Patient: Jalen,Sarath ?MR#: [id number] ?? 30 ? : 1975 ?Acct:[id number] ? Age/Sex: 49 / M ?ADM Date: 05/29/24 ? Loc: HO.HHCX ? Attending DrAnoop Melendez ? Ordering Physician: Bhumika Melendez ?? Date of Service: 05/29/24 ?? Procedure(s): XR shoulder LT min 2V ?? Accession Number(s): [id number] ? cc: Bhumika Melendez ? EXAMINATION: ??XR SHOULDER 2 OR MORE VIEWS LEFT ? HISTORY: pain ? COMPARISON: There are no prior studies available for comparison. ? FINDINGS: ? Five views of the left shoulder are submitted. ??Osseous mineralization ?? is normal. ??There is no fracture or dislocation. ??The glenohumeral ?? joint is maintained. There is mild narrowing of the AC joint. ??The soft ?? tissues are unremarkable. ? XR/XR shoulder LT min 2V ?? IMPRESSION: ? Mild narrowing of the AC joint. Otherwise unremarkable examination of ?? the left shoulder. ? Electronically signed by: ??Sami Williamson MD ??05/29/2024 01:43 PM EST ?? RP ? Dictated By: ?Sami Williamson MD ? Signed By: ?<Electronically signed by Sami Williamson MD in OV> ?05/29/24 1343 ? DD/ 1151 ? TD/TT: 05/29/24 1159 ? Voting Machine Repairer: ? Procedure Note Berenice Shore - 05/29/[address] [address] XRay Report Signed Patient: Sarath RaoMR#: [id number] 30 : 1975Acct:[id number] Age/Sex: 49 / MADM Date: 05/29/24 Loc: HO.HHCX Attending Dr: Bhumika Melendez Ordering Physician: Bhumika Melendez Date of Service: 05/29/24 Procedure(s): XR shoulder LT min 2V Accession Number(s): [id number] cc: Bhumika Melendez EXAMINATION: XR SHOULDER 2 OR MORE VIEWS LEFT HISTORY: pain COMPARISON: There are no prior studies available for comparison. FINDINGS: Five views of the left shoulder are submitted. Osseous mineralization is normal. There is no fracture or dislocation. The glenohumeral joint is maintained. There is mild narrowing of the AC joint. The soft tissues are unremarkable. XR/XR shoulder LT min 2V IMPRESSION: Mild narrowing of the AC joint. Otherwise unremarkable examination of the left shoulder. Electronically signed by: Sami Williamson MD 05/29/2024 01:43 PM EST Dictated By: Sami Williamson MD Signed By: <Electronically signed by Sami Williamson MD in OV> 05/29/24 1343 DD/ 1151 TD/TT: 05/29/24 1159 Voting Machine Repairer: Bhumika Melendez NP IMG XR PROCEDURES Final Result documented in this encounter Visit Diagnoses Diagnosis Acute pain of left shoulder- Primary documented in this encounter Additional Health Concerns Assessment Noted Time PHQ-9 Depression Total Score: 10 025 10:50 AM EST documented as of this encounter Care Teams Wood Preparation Supervisor Relationship Specialty Start Date End Date Bhumika Melendez NP [address] [place] [address] PCP - General Family Medicine 04/14/23 documented as of this encounter
--- OUTSIDE RECORDS SUMMARY | 2024-05-29 14:54 | XMS_ITS | Encounter Summary ---
Author Organization [employer] Address [address] [place] [address] [address] [place] [address] Care Team Providers Care Prosthetics Technician Name Role Phone Bhumika Melendez NP Primary Care Provider [phone] Reason for Visit * Reason Comments Pre-visit Planning Pre-visit planning - LVM Encounter Details Date Type Department Care Team ([facility] Contact Info) Description 05/17/2024 Patient Outreach [facility] MEDICINE [address] [place] [address] Bhumika Melendez NP [address] [place] [address] Pre-visit Planning (Pre-visit planning - LVM ) [...] is your housing situation today? I have ujles tilley 04/07/[address] you [...] Description 06/26/2024 9:00 AM EDT Office Visit [facility] ADULT DENTAL [address] [place] [address] Warren, Chela [address] [place] [address] documented as of this encounter Visit Diagnoses Not on filedocumented in this encounter Additional Health Concerns Assessment Noted Time PHQ-9 Depression Total Score: 0 04/14/19 24 1:12 PM EST documented as of this encounter Care Teams Prosthetics Technician Relationship Specialty Start Date End Date Bhumika Melendez NP [address] [place] [address] PCP - General Family Medicine 04/14/23 documented as of this encounter
--- OUTSIDE RECORDS SUMMARY | 2024-05-29 14:54 | XMS_ITS | Encounter Summary ---
Author Organization [employer] Address [address] [place] [address] [address] [place] [address] Care Team Providers Care Financial Data Analyst Name Role Phone Bhumika Melendez NP Primary Care Provider [phone] Encounter Details Date Type Department Care Team (Latest Contact Info) Description 05/29/2024 Travel Social History Tobacco Use Types Packs/Day Years [...] with others, in a hotel, in a senior living, living outside on the street, on a [...] Description 06/26/2024 9:00 AM EDT Office Visit [facility] ADULT DENTAL [address] [place] [address] Chela Kelley [address] [place] [address] documented as of this encounter Visit Diagnoses Not on filedocumented in this encounter Additional Health Concerns Assessment Noted Time PHQ-9 Depression Total Score: 10 025 10:50 AM EST documented as of this encounter Care Teams Financial Data Analyst Relationship Specialty Start Date End Date Bhumika Melendez NP [address] [place] [address] PCP - General Family Medicine 04/14/23 documented as of this encounter
--- OUTSIDE RECORDS SUMMARY | 2024-05-29 14:54 | XMS_ITS | Encounter Summary ---
Author Organization [employer] Address [address] [place] [address] [address] [place] [address] Care Team Providers Care Assistant Auditor Name Role Phone Bhumika Melendez NP Primary Care Provider [phone] Encounter Details Date Type Department Care Team (Late st Contact Info) Description 04/28/2022 Abstract [facility] ADULT DENTAL [address] [place] [address] John Culver DDS [address] [place] [address] Social History Tobacco Use Types Packs/Day Years [...] Description 06/26/2024 9:00 AM EDT Office Visit [facility] ADULT DENTAL [address] [place] [address] Chela Kelley [address] [place] [address] documented as of this encounter Visit Diagnoses Not on filedocumented in this encounter Care Teams Assistant Auditor Relationship Specialty Start Date End Date Bhumika Melendez NP [address] [place] [address] PCP - General Family Medicine 04/14/23 documented as of this encounter
--- OUTSIDE RECORDS SUMMARY | 2024-05-29 14:54 | XMS_ITS | Encounter Summary ---
Author Organization [employer] Address [address] [facility] [address] [place] [address] Care Team Providers Care Hvac Technician Residential Name Role Phone Bhumika Melendez NP Primary Care Provider [phone] Encounter Details Date Type Department Care Team ([facility] st Contact Info) Description 03/08/2024 Telephone [facility] MEDICINE [address] [place] [address] Bhumika Melendez NP [address] [place] [address] Social History Tobacco Use Types Packs/Day Years [...] Description 06/26/2024 9:00 AM EDT Office Visit [facility] ADULT DENTAL [address] [place] [address] Warren, Chela [address] [place] [address] documented as of this encounter Visit Diagnoses Not on filedocumented in this encounter Additional Health Concerns Assessment Noted Time PHQ-9 Depression Total Score: 0 04/14/19 24 1:12 PM EST documented as of this encounter Care Teams Hvac Technician Residential Relationship Specialty Start Date End Date Bhumika Melendez NP [address] [place] [address] PCP - General Family Medicine 04/14/23 documented as of this encounter
--- OUTSIDE RECORDS SUMMARY | 2024-05-29 14:54 | XMS_ITS | Encounter Summary ---
Author Organization [employer] Address [address] [place] [address] [address] [place] [address] Care Team Providers Care Corporate Planner Name Role Phone Bhumika Melendez NP Primary Care Provider [phone] Reason for Visit * Reason Onset Date Comments Hospital Follow-up 03/07/2024 Encounter Details Date Type Department Care Team ([facility] Contact Info) Description 03/07/2024 Telephone [facility] MEDICINE [address] [place] [address] Bhumika Melendez NP [address] [place] [address] Hospital Follow-up Social History Tobacco Use Types [...] from pt requesting a HDF appt. Hospital: [facility] Date of admission: 02/26/2024 Discharge date: 03/04/2025 Diagnosed: bowel obstruction *Send message to [facility] Clinical Care Coordinators documented in this encounter Plan of Treatment Upcoming Encounters Date Type Department Care Team (Late st Contact Info) Description 06/26/2024 9:00 AM EDT Office Visit [facility] ADULT DENTAL [address] [place] [address] Warren, Chela [address] [place] [address] documented as of this encounter Visit Diagnoses Not on filedocumented in this encounter Additional Health Concerns Assessment Noted Time PHQ-9 Depression Total Score: 0 04/14/19 24 1:12 PM EST documented as of this encounter Care Teams Corporate Planner Relationship Specialty Start Date End Date Bhumika Melendez NP [address] [place] [address] PCP - General Family Medicine 04/14/23 documented as of this encounter
--- OUTSIDE RECORDS SUMMARY | 2024-05-29 14:54 | XMS_ITS | Clinical Summary ---
Author Organization [employer] Address [address] [facility] [address] [place] [address] Care Team Providers Care Intensive Care Ambulance Paramedic Name Role Phone Bhumika Melendez NP Primary Care Provider [phone] Allergies No known active allergies Medications cholecalciferol (Vitamin D-3) 10 MCG (400 UNIT) tablet Take 1 tablet by mouth Once daily. Active Blood Pressure Monitor kitIndications: Elevated BP without diagnosis of hypertension 1 kit Once per day. 1 kit 08/02/19 Active Additional Information Patient not taking.Reported on 09/06/2023 Diclofenac Sodium 1 % gelIndications: Acute pain of left shoulder Apply 1 g topically if needed in the morning, at noon, and at bedtime (pain). 100 g 05/29/19 25 2024 Active ferrous sulfate 325 (65 Fe) MG tablet Take 325 mg by mouth with breakfast. 2024 Discontinued(M ed list cleanup (will not trigger notification to Pharmacy)) Ventolin HFA 108 (90 Base) MCG/ACT inhalerIndicati ons:Severe persistent asthma without complication INHALE 2 PUFFS BY MOUTH EVERY 6 HOURS NEEDED FOR SHORTNESS OF BREATH OR WHEEZE FOR 10 DAYS 18 g 1 07/19/19 24 2024 Discontinued(M ed list cleanup (will not trigger notification to Pharmacy)) budesonide-form oterol (Symbicort) 80-4.5 MCG/ACT inhalerIndicati ons:Severe persistent asthma without complication Inhale 1 puff in the morning and at bedtime. Rinse mouth with water after use to reduce aftertaste and incidence of candidiasis. Do not swallow. 10.2 g 1 07/19/19 24 2024 Discontinued(M ed list cleanup (will not trigger notification to Pharmacy)) cyclobenzaprine (Flexeril) 10 MG tablet Take 1 tablet (10 mg) by mouth at bedtime. 30 tablet 01/18/20 24 2024 Discontinued(M ed list cleanup (will not trigger notification to Pharmacy)) meloxicam (Mobic) 15 MG tablet Take 1 tablet (15 mg) by mouth Once per day. 30 tablet 01/18/20 24 2024 Discontinued(M ed list cleanup (will not trigger notification to Pharmacy)) Active Problems Problem Noted Date Diagnosed Date [...] -patient advised to upload home reading into Tippr for my review -if persistently elevated home [...] Encounters Date Type Department Care Team Description 05/29/2024 10:45 AM EST Office Visit [address] [address] Bhumika Melendez NP Acute pain of left shoulder (Primary Dx) 05/29/2024 Travel 05/17/2024 Patient Outreach [address] [address] Bhumika Melendez NP Pre-visit Planning (Pre-visit planning - LVM ) 05/14/[address] [address] Jigar Lawson MA chartprep 04/26/[address] [address] Bhumika Melendez NP Durable Medical Equipment 04/04/[address] [address] Jigar Lawson MA june03/20/2024 9:00 AM EST Office Visit [facility] [address] [place] [phone] Chela Kelley Advanced periodontitis (Primary Dx); Dental calculus; Extruded tooth 03/12/[address] [address] Jigar Lawson MA chartprep 03/08/[address] [address] Bhumika Melendez NP 03/07/[address] [address] Bhumika Melendez NP Nurse Triage 03/07/[address] [address] Bhumika Melendez NP Hospital Follow-up 03/06/2024 Travel 03/06/[address] [address] Zahira Mojica, KEV 02/28/2024 Orders Only [facility] External Provider, [facility] from Last 3 Months Immunizations Name Administration [...] Mass Index 32.14 05/29/2024 10:39 AM EST Plan of Treatment Upcoming Encounters Date Type Department Care Team (Late st Contact Info) Description 06/26/2024 9:00 AM EDT Office Visit [facility] [address] [place] [address] Chela Kelley [address] [place] [address] Health Maintenance Due Date Last Done Comments CT Colonography 1974 Colonoscopy 1974 Colorectal Cancer Screening 1974 Dental X-Ray: Full Mouth 1974 FIT DNA/Cologuard 1974 FIT 1974 FOBT 1974 Sigmoidoscopy 1974 Family Planning (PISQ) 1989 Dental Oral Exam 03/30/2024 09/28/2023, 04/19/2022 Zoster Vaccines (1 of 2) 2024 Dental Prophylaxis 09/19/2024 03/20/2024, 0 09/28/2023, 04/19/2022 Dental X-Ray: Bitewings 09/28/2024 09/28/2023, 04/19 Depression Monitoring (PHQ-9) 11/26/2024 05/29/2024, 05/29/2024 Alcohol/Substance Use Screening 05/29/2025 05/29/2024 Depression Screening 05/29/2025 05/29/2024, 05/29/19 SDOH Screening 05/29/2025 05/29/2024 Tobacco Screening 05/29/2025 05/29/2024 Lipid Panel 05/24/2028 05/24/2023, 04/15/2023 DTaP/Tdap/Td Vaccines [...] AM EST Acute pain of left shoulder CASE PRESENTATION, DETAILED AND EXTENSIVE TREATMENT PLANNING [...] Recently Relevant to Health Maintenance Results * XR Shoulder 2+ Views Left (05/29/2024 11:51 AM EST) Anatomical Region Laterality Modality Upper Extremities, Shoulder Left Radi ographic Imaging 05/29/2024 11:5 1 AM EST Narrative 05/29/2024 1:46 PM EST ?[facility] ?[address] ?[place] [address] ?XRay Report ? Signed ? Patient: Jalen,Sarath ?MR#: [id number] ?? 30 ? : 1975 ?Acct:[id number] ? Age/Sex: 49 / M ?ADM Date: 05/29/24 ? Loc: HO.HHCX ? Attending DrAnoop Melendez ? Ordering Physician: Bhumika Melendez ?? Date of Service: 05/29/24 ?? Procedure(s): XR shoulder LT min 2V ?? Accession Number(s): [id number] ? cc: Bhumika Melendez ? EXAMINATION: ??XR [...] ??Sami Williamson MD ??05/29/2024 01:43 PM EST ? Dictated By: ?Sami Williamson MD ? Signed By: ?<Electronically signed by Sami Williamson MD in OV> ?05/29/24 1343 ? DD/ 1151 ? TD/TT: 05/29/24 1159 ? Folding Machine Setter: ? Procedure Note Silivano, Image - 05/29/2024 [facility] [address] [place] [address] XRay Report Signed Patient: Mil Rao#: [id number] [birth year] : 1975Acct:[id number] Age/Sex: 49 / MADM Date: 05/29/24 Loc: HO.HHCX Attending Dr: Bhumika Melendez Ordering Physician: Bhumika Melendez Date of Service: 05/29/24 Procedure(s): XR shoulder LT min 2V Accession Number(s): [id number] cc: Bhumika Melendez EXAMINATION: XR SHOULDER 2 [...] Sami Williamson MD 05/29/2024 01:43 PM EST RP Dictated By: Sami Williamson MD Signed By: <Electronically signed by Sami Williamson MD in OV> 05/29/24 1343 DD/ 1151 TD/TT: 05/29/24 1159 Folding Machine Setter: Bhumika Melendez SEBD TEACHER IMG XR PROCEDURES Final Result * CT Chest w/o Contrast (02/28/2024 7:47 AM EST) Anatomical Region Laterality Modality Body, Chest Computed Tomogra phy 02/28/2024 7:47 AM EST Narrative 04/23/2024 10:34 AM EST ? [facility] ?[address] ?[place] [address] ? CT Scan Report ? Signed ? Patient: Jalen,Sarath ?MR#: [id number] ?? 30 ? : 1975 ?Acct:[id number] ? Age/Sex: 48 / M ?ADM Date: 11/27/24 ? Loc: HO.CT ? Attending Dr: Piedad Malin SEBD TEACHER ? Ordering Physician: Piedad Malin NP ?? Date of Service: 02/28/24 ?? Procedure(s): CT chest wo IV con ?? Accession Number(s): [id number] ? cc: Bhumika Melendez; Piedad Malin SEBD TEACHER ? Report Number: ?? [id number]: Total DLP = ??182.00 mGy-cm ?? EXAMINATION: [...] technique ?? DLP 182 ? FINDINGS: ? MOLD SHAKER: Well-inflated lungs. ? LUNGS: Previously visualized groundglass [...] were followed. ? Electronically signed by: ??Stevenson Russo MD ??04/23/2024 10:32 AM EST RP ? Dictated By: ?Stevenson Russo MD ? Signed By: ?<Electronically signed by Stevenson Russo MD in OV> ?04/23/242 ? DD/ 07 ? TD/TT: 02/28/24 0810 ? Folding Machine Setter: MSM ? Procedure Note Donotuseinterpreter, Image - 04/23/[address] [address] [address] Scan Report Signed Patient: Mil Rao#: [id number] [birth year] : 1975Acct:[id number] Age/Sex: 48 / MADM Date: 02/28/24 Loc: HO.CT Attending Dr: Piedad Malin NP Ordering Physician: Piedad Malin NP Date of Service: 02/28/24 Procedure(s): CT chest wo IV con Accession Number(s): [id number] cc: Bhumika Melendez; Piedad Malin NP Report Number: [id number]: Total DLP = 182.00 mGy-cm EXAMINATION: CT [...] of iterative reconstruction technique DLP 182 FINDINGS: MOLD SHAKER: Well-inflated lungs. LUNGS: Previously visualized groundglass opacity [...] 04/23/24 1032 DD/ 0747 TD/TT: 02/28/24 0810 Folding Machine Setter: AMADOU [facility] External Provider IMG CT PROCEDURES Edited Result - Final * Lipid Panel, Standard (05/24/2023 11:09 AM EST) Triglycerides 117 <150 mg/dL [facility] Comment:Desirable Triglyceri de: less than 150 mg/dLBorderline High Triglyceride 150-199 mg/dLHigh Triglyceride: 200-499 mg/dLVery High Triglyceride: greater than or equal to 5OO mg/dL Cholesterol 143 <200 mg/dL [facility] Comment:Desirable Cholestero l: less than 200 mg/dLBorderline High Cholesterol: 200-239 mg/dLHigh Cholesterol: greater than 239 mg/dL LDL Cholesterol Calculated 74 <100 mg/dL [facility] Comment:Desirable LDL: less than 100 mg/dLNear Optimal/Above Optimal LDL: 110- 129 mg/dLBorderline High LDL: 130-159 mg/dLHigh LDL: 160-189 mg/dLVery High LDL: greater than or equal to 190 mg/dL HDL Cholesterol 46 >40 mg/dL [facility] Comment:Desirable HDL: great er than 40 mg/dL Note: This HDL assay may give artificially low results in patients with liver disease. Blood Venous blood specimen / Unknown 05/24/2023 11:09 AM EST 05/24/2023 11:09 AM EST [facility] LAB BLOOD ORDERABLES Final Resu lt Performing Organization Address [facility] Co de Phone Number [facility] [address] [place] [phone] * Hepatitis Panel, General (04/15/2023 10:28 AM EST) Hepatitis A IgM Nonreactive Nonreactive [facility] Comment:IgM antibodies to TOURE V not detected; does not exclude earlyacute or recovered HAV infection. ~Hepatitis B Surface Antibody NONREACTIVE Nonreactive [facility] Comment:Nonreactive: < 8.00 mIU/mL Hepatitis B Core Antibody Nonreactive Nonreactive [facility] Hepatitis C Antibody Nonreactive Nonreactive [facility] Comment:Antibodies to HCV no t detected; does not exclude early acuteHCV infection. Hepatitis B Surface Ag Negative Negative [facility] Blood 04/15/2023 10:2 8 AM EST 04/15/2023 10:28 AM EST [facility] BLOOD ORDERABLES Final [facility] Performing Organization Address [facility] de Phone Number [facility] [address] [place] [phone] * HIV-1/2 Antigen and Antibodies, Fourth Generation, with Reflexes (04/15/2023 10:28 AM EST) HIV AB/AG Nonreactive Nonreactive [facility] Comment:HIV-1 p24 Ag and/or HIV-1/HIV-2 Ab not detected.A test result that is nonreactive does not exclude thepossibility of exposure to or infection with HIV-1 and/orHIV-2. Nonreactive results in this assay for individualswith prior exposure to HIV-1 and/or HIV-2 may be due toantigen and antibody levels that are below the limit ofdetection of this assay.The [employer]cdaniels Alinity HIV Ag/Ab Combo assay result andsupplemental assay results should be interpreted inconjunction with the patient's clinical presentation,history and other laboratory results. If the results areinconsistent with clinical evidence, additional testing issuggested to confirm the result. Blood Venous blood specimen / Unknown 04/15/2023 10:28 AM EST 04/15/2023 10:28 AM EST Bhumika Melendez NP LAB BLOOD ORDERABLES Final Resu lt [facility] [address] [place] [phone] from Last 3 Months or Most Recently Relevant to Health Maintenance Insurance [address] [address] HEALTH PLAN DENTAL - HSN PARTIAL (MEDICAID) Care Teams Intensive Care Ambulance Paramedic Relationship Specialty Start Date End Date Bhumika Melendez NP [address] [place] [phone] PCP - General Family Medicine 04/14/23
== END 2024-05-29 11:52 | disposition home or self-care (01) ==
LOC: HO.HHCX 11:51
PROVIDERS: Visit Provider Nurse Practitioner
DX: M25.512 Pain in left shoulder (principal)
CPT/HCPCS: 73030

== ENCOUNTER → 2024-05-29 11:51 | Outpatient (BNV) | payer OTHER, SELFPAY | PROVIDERS: Visit Provider Radiology Diagnostic Radiology | DX: M25.512 Pain in left shoulder (principal) | CPT/HCPCS: 73030 ==

== ENCOUNTER 2024-05-30 07:45 | Day surgery (SDC) | payer OTHER, SELFPAY ==
--- OUTSIDE RECORDS SUMMARY | 2024-05-24 12:53 | XMS_ITS | Encounter Summary ---
Author Organization [employer] Address [address] [facility] [address] [place] [address] Care Team Providers Care Health Education Specialist Name Role Phone Bhumika Melendez NP Primary Care Provider [phone] Reason for Visit * Reason Comments Pre-visit Planning Pre-visit planning - LVM Encounter Details Date Type Department Care Team ([facility] st Contact Info) Description 05/17/2024 Patient Outreach [facility] [address] [place] [address] Bhumika Melendez NP [address] [place] [address] Pre-visit Planning (Pre-visit planning - LVM ) Social History Tobacco Use Types Packs/Day Years Used Date Smoking Tobacco: Former Cigarettes Passive Smoke Exposure: Never Smokeless Tobacco: Never Comments:Patient reports smo mukund half ppd for 4 years. Quit 04/03/2023 Alcohol Use Standard Drinks/Week Comments Yes 0 (1 standard drink = 0.6 oz pure alcohol) drinks 2x per month about 1/2 bottle of wine Depression Answer Date Recorded Patient Health Questionnaire-9 Score 0 04/14/2023 Patient Health Questionnaire-9 Score 0 04/14/2023 Last PHQ-9: Questionnaire Data Not on file 0 04/14/2023 Housing Stability Answer Date Recorded What is your housing situation today? I have jules tilley 04/07/[address] you li ve. Do you have problems with any of the following? None of the above 04/07/2023 Food Insecurity Answer Date Recorded Within the past 12 months, y ou worried that your food would run out before you got money to buy more: Never True 04/07/2023 Within the past 12 months,th e food you bought just didn't last and you didn't have enough money to get more: Never True 08/2023 Transportation Answer Date Recorded In the past 12 months, has l ack of transportation kept you from medical appts, meetings, work or from getting things needed for daily living? No 04/07/2023 Utilities Answer Date Recorded In the past 12 months, has t he [employer], gas, oil or water [email or web address] threatened to shut off services in your home? No 04/07/2023 Depression Answer Date Recorded Patient Health Questionnaire-2 Score 0 04/14/2023 Sex and Gender Information Value Date Recorded Sex Assigned at Male 01/31/2022 10:16 AM EDT Legal Sex Male 10:16 AM EDT Gender Identity Male 04/26/2022 8:21 AM EST Sexual Orientation Choose not to disclose 2021 10:16 AM EDT documented as of this encounter Progress Notes * Marlene Engel - 05/17/2024 9:01 AM EST WILLIAM Todd placed outbound call to patient to complete pre-visit planning. No answer at this time. Patient name and were not confirmed. CC left voicemail requesting return call. Direct contact information provided. documented in this encounter Plan of Treatment Upcoming Encounters Date Type Department Care Team (Late st Contact Info) Description 05/29/2024 10:45 AM EST Office Visit [facility] [address] [place] [address] Bhumika Melendez NP [address] [place] [address] 06/26/2024 9:00 AM EDT Office Visit [facility] [address] [place] [address] Chela Kelley [address] [place] [address] documented as of this encounter Visit Diagnoses Not on filedocumented in this encounter Additional Health Concerns Assessment Noted Time PHQ-9 Depression Total Score: 0 04/14/19 24 1:12 PM EST documented as of this encounter Care Teams Health Education Specialist Relationship Specialty Start Date End Date Bhumika Melendez NP [address] [place] [id number] PCP - General Family Medicine 04/14/23 documented as of this encounter
--- OUTSIDE RECORDS SUMMARY | 2024-05-24 12:53 | XMS_ITS | Encounter Summary ---
Author Organization [employer] Address [address] [facility] [address] [place] [address] Care Team Providers Care First Responder Name Role Phone Manishmarisol Bhumika MASON Primary Care Provider [phone] Encounter Details Date Type Department Care Team ([facility] Contact Info) Description 04/28/2022 Abstract [facility] [address] [place] [address] John Culver DDS [address] [place] [address] Social History Tobacco Use Types Packs/Day Years Used Date Smoking Tobacco: Every Day Cigarettes Passive Smoke Exposure: Never Smokeless Tobacco: Never Alcohol Use Standard Drinks/Week Comments Never 0 (1 standard drink = 0.6 oz pur e alcohol) Sex and Gender Information Value Date Recorded Sex Assigned at Male 01/31/2022 10:16 AM EDT Legal Sex Male 10:16 AM EDT Gender Identity Male 04/26/2022 8:21 AM EST Sexual Orientation Choose not to disclose 2021 10:16 AM EDT COVID-19 Exposure Response Date Recorded In the last 10 days, have yo u been in contact with someone who was confirmed or suspected to have Coronavirus/COVID-19? No / Unsure 04/26/2022 8:15 AM EST documented as of this encounter Plan of Treatment Upcoming Encounters Date Type Department Care Team (Late Contact Info) Description 05/29/2024 10:45 AM EST Office Visit [facility] [address] [place] [address] Bhumika Melendez NP [address] [place] [address] 06/26/2024 9:00 AM EDT Office Visit [facility] [address] [place] [address] Fabiano Kelleyaris [address] [place] [address] documented as of this encounter Visit Diagnoses Not on filedocumented in this encounter Care Teams First Responder Relationship Specialty Start Date End Date Bhumika Melendez NP [address] [place] [address] PCP - General Family Medicine 04/14/23 documented as of this encounter
--- OUTSIDE RECORDS SUMMARY | 2024-05-24 12:53 | XMS_ITS | Encounter Summary ---
Author Organization [employer] Address [address] [facility] [address] [place] [address] Care Team Providers Care Yarn Preparation Supervisor Name Role Phone Bhumika Melendez [employer] W[employer]ER Primary Care Provider [phone] Reason for Visit * Reason Onset Date Comments Letter for School/Work 08/04/2023 Encounter Details Date Type Department Care Team ([facility] st Contact Info) Description 08/04/2023 Telephone [facility] MEDICINE [address] [place] [address] Bhumika Melendez NP [address] [place] [address] Letter for School/Work Social History Tobacco Use Types Packs/Day Years [...] the past 12 months, has t he electric, gas, oil or water company threatened to shut off services in your home? No 04/07/2023 Depression Answer Date Recorded Patient Health Questionnaire-2 Score 0 04/14/2023 Sex and Gender Information Value Date Recorded Sex Assigned at Male 01/31/2022 10:16 AM EDT Legal Sex Male 10:16 AM EDT Gender Identity Male 04/26/2022 8:21 AM EST Sexual Orientation Choose not to disclose 2021 10:16 AM EDT documented as of this encounter Miscellaneous Notes * Telephone Encounter - Jose Lora RN - 08/08/2023 2:19 PM EDT Return T/C to pt. For below message, pt. States he already received letter/ pt. Advise to call [facility] if any questions or concerns. Pt. Verbally greed and understood. * Telephone Encounter - Ethan Pina - 08/08/2023 11:13 AM EDT Tc from pt returning call. * Telephone Encounter - Jose Lora RN - 08/08/2023 9:40 AM EDT T/C to pt. For below message, No answer. LVM to call back on [phone]. * Telephone Encounter - Jose Lora RN - 08/04/2023 3:43 PM EDT Please review and advise for below request. 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 States job is okay, only needs letter. Pt returns to work Monday (08/06) Any questions, contact pt at [phone] documented in this encounter Plan of Treatment Upcoming Encounters Date Type Department Care Team (Late st Contact Info) Description 05/29/2024 10:45 AM EST Office Visit [facility] MEDICINE [address] [place] [address] Bhumika Melendez NP [address] [place] [address] 06/26/2024 9:00 AM EDT Office Visit [facility] ADULT DENTAL [address] [place] [address] Warren Chela [address] [place] [address] documented as of this encounter Visit Diagnoses Not on filedocumented in this encounter Additional Health Concerns Assessment Noted Time PHQ-9 Depression Total Score: 0 04/14/19 24 1:12 PM EST documented as of this encounter Care Teams Yarn Preparation Supervisor Relationship Specialty Start Date End Date Bhumika Melendez NP [address] [place] [address] PCP - General Family Medicine 04/14/23 documented as of this encounter
--- OUTSIDE RECORDS SUMMARY | 2024-05-24 12:53 | XMS_ITS | Encounter Summary ---
Author Organization [employer] Address [address] [facility] [address] [place] [address] Care Team Providers Care Client Executive Name Role Phone Bhumika Melendez NP Primary Care Provider [phone] Reason for Visit * Reason Onset Date Comments Hospital Follow-up 03/07/2024 Encounter Details Date Type Department Care Team ([facility] st Contact Info) Description 03/07/2024 Telephone [facility] MEDICINE [address] [place] [address] Bhumika Melendez NP [address] [place] [address] Hospital Follow-up Social History Tobacco Use Types Packs/Day Years [...] encounter Miscellaneous Notes * Telephone Encounter - Jb Bruce - 03/07/2024 10:27 AM EST Tc from pt requesting a HDF appt. Hospital: [facility] Date of admission: 02/26/2024 Discharge date: 03/04/2025 Diagnosed: bowel obstruction *Send message to [place] [facility] Coordinators documented in this encounter Plan of Treatment Upcoming Encounters Date Type Department Care Team (Late st Contact Info) Description 05/29/2024 10:45 AM EST Office Visit [facility] MEDICINE [address] [place] [address] Bhumika Melendez NP [address] [place] [address] 06/26/2024 9:00 AM EDT Office Visit [facility] ADULT DENTAL [address] [place] [address] Chela Kelley [address] [place] [address] documented as of this encounter Visit Diagnoses Not on filedocumented in this encounter Additional Health Concerns Assessment Noted Time PHQ-9 Depression Total Score: 0 04/14/19 24 1:12 PM EST documented as of this encounter Care Teams Client Executive Relationship Specialty Start Date End Date Bhumika Melendez NP [address] [place] [address] PCP - General Family Medicine 04/14/23 documented as of this encounter
--- OUTSIDE RECORDS SUMMARY | 2024-05-24 12:53 | XMS_ITS | Encounter Summary ---
Author Organization [employer] Address [address] [facility] [address] [place] [address] Care Team Providers Care Undercoat Sprayer Name Role Phone Bhumika Melendez NP Primary Care Provider [phone] Encounter Details Date Type Department Care Team ([facility] st Contact Info) Description 03/08/2024 Telephone [facility] MEDICINE [address] [place] [address] Bhumika Melendez NP [address] [place] [address] Social History Tobacco Use Types Packs/Day Years [...] AM EDT documented as of this encounter Plan of Treatment Upcoming Encounters Date Type Department Care Team (Late st Contact Info) Description 05/29/2024 10:45 AM EST Office Visit [facility] MEDICINE [address] [place] [address] Bhumkia Melendez NP [address] [place] [address] 06/26/2024 9:00 AM EDT Office Visit [facility] ADULT DENTAL [address] [place] [address] Warren, Chela [address] [place] [address] documented as of this encounter Visit Diagnoses Not on filedocumented in this encounter Additional Health Concerns Assessment Noted Time PHQ-9 Depression Total Score: 0 04/14/19 1:12 PM EST documented as of this encounter Care Teams Undercoat Sprayer Relationship Specialty Start Date End Date Bhumika Melendez NP [address] [place] [address] PCP - General Family Medicine 04/14/23 documented as of this encounter
--- OUTSIDE RECORDS SUMMARY | 2024-05-24 12:53 | XMS_ITS | Clinical Summary ---
Author Organization [employer] Address [address] [place] [address] Care Team Providers Care Senior Accountant Name Role Phone Bhumika Melendez NP Primary Care Provider [phone] Allergies No known active allergies Medications cholecalciferol (Vitamin D-3) 10 MCG (400 UNIT) tablet Take 1 tablet by mouth Once daily. Active ferrous sulfate 325 (65 Fe) MG tablet Take 325 mg by mouth with breakfast. Active Ventolin HFA 108 (90 Base) MCG/ACT inhalerIndicatio ns:Severe persistent asthma without complication INHALE 2 PUFFS BY MOUTH EVERY 6 HOURS NEEDED FOR SHORTNESS OF BREATH OR WHEEZE FOR 10 DAYS 18 g 1 4 Active Additional Information Patient not taking.Reported on 09/06/2023 budesonide-formo terol (Symbicort) 80-4.5 MCG/ACT inhalerIndicatio ns:Severe persistent asthma without complication Inhale 1 puff in the morning and at bedtime. Rinse mouth with water after use to reduce aftertaste and incidence of candidiasis. Do not swallow. 10.2 g 1 4 07/19/19 25 Active Blood Pressure Monitor kitIndications:E levated BP without diagnosis of hypertension 1 kit Once per day. 1 kit 4 Active Additional Information Patient not taking.Reported on 09/06/2023 cyclobenzaprine (Flexeril) 10 MG tablet Take 1 tablet (10 mg) by mouth at bedtime. 30 tablet 4 Active meloxicam (Mobic) 15 MG tablet Take 1 tablet (15 mg) by mouth Once per day. 30 tablet 4 01/18/20 25 Active Active Problems Problem Noted Date Diagnosed Date Advanced periodontitis 03/20/2024 Lumbar sprain 01/18/2024 Assessment & Plan (01/18/2024 10:42 AM EDT): It seems to have sciatica as well. I gave her stretching exercises for lumbar and thoracic spine until he's seen by PT. Take meloxicam daily 14-28d + Tylenol prn pain + Flexeril at bedtime x 10d, caution with sedation. Apply heat to affected area He'll be a out of work x 5d, fu with PCP in 2-3mo. Re consult if he has permanent leg numbness, weakness, fever, LUTS. 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 -continue daily home monitoring -microalbumin 6 as of 05/24/23 -10 year ASCVD risk of 2%; lifetime risk 36% -follow-up 6 months Assessment & Plan (10/23/2023 8:37 AM EDT): -BP elevated in clinic today -BP kit ordered for continued home monitoring -advised physical activity as able to tolerate -low salt diet advised Assessment & Plan (09/06/2023 10:42 AM EDT): -BP at target goal of < 130/80 -microalbumin: will check in 2 weeks -ASCVD risk: 2.6% -daily BP monitoring advised -low salt diet and 30 min moderate intensity daily exercise recommended -patient advised to upload home reading into [employer] for my review -if persistently elevated home readings, will start hydrochlorothiazide 12.5 mg and recheck BMP and home readings in 2 weeks. -Reviewed ED precautions to include chest pain, shortness of breath, severe headache, sudden vision changes or BP >=180/>=120 mmHg. -Call clinic if three or more BP readings >140/90. -follow-up 3 months Elevated bilirubin 07/19/2023 Assessment & Plan (07/19/2023 2:00 PM EDT): -slightly elevated bilirubin and total protein noted 06/20 -will recheck values today to determine need for further work up Leukocytosis 07/19/2023 Assessment & Plan (07/19/2023 1:59 PM EDT): -abnormal CBC on 06/20, question effects from recent oral steroid use -will recheck today to trend WBC Severe persistent asthma without complication Assessment & Plan (10/23/2023 8:38 AM EDT): -continue use of inhalers as prescribed and continue close follow-up with pulmonology -breathing exercises to mimic spirometry taught -sick leave paperwork completed -follow-up 1 month after sleep study and pul appt Assessment & Plan (09/06/2023 10:34 AM EDT): -patient reports moderate improvement -advised to continue symbicort for a few more months given the severity and long duration of his symptoms -advised to take OTC loratadine for congestion -follow-up 3 months Assessment & Plan (07/19/2023 1:54 PM EDT): -ACT score 7 today -will start symbicort in place of arnuity to enhance symptom control -order for chest CT placed to be completed in August -patient advised to ensure completion of PFT and sleep study tests as ordered by pulm -recent weight gain is likely related to recent oral steroid use -patient advised to maintain physical activity as tolerated using rescue inhaler 20 mins prior -follow-up in 2 weeks or sooner as needed JOLANTA (obstructive sleep apnea) 07/19/2023 Assessment & Plan (12/13/2023 12:14 PM EDT): -PA specialist to assist with him obtaining his CPAP machine -continued weight loss encouraged in the interim Assessment & Plan (09/06/2023 10:28 AM EDT): -patient reports diagnosis of obstructive sleep apnea following sleep study. This is likely the cause of his sleep disturbance -advised to follow-up with pulm in regards to obtaining CPAP machine Assessment & Plan (07/19/2023 6:00 PM EDT): -may be due to sleep apnea based on patients symptom complaint -sleep study ordered by pulmonology Acute cough 06/22/2023 Assessment & Plan (10/23/2023 8:35 AM EDT): Assessment & Plan (06/27/2023 8:42 AM EDT): -unsure of etiology -cough not responsive to amoxicillin, two rounds of oral prednisone, and albuterol -will trial levaquin to treat atypical bacterial pneumonia -chest CT ordered to rule out TB and malignancy -patient weaned off O2 in the office. does not meet criteria for home O2 at this time -advised to monitor O2 readings at home. Return to ED with readings persistently <90% -advised completion of prednisone course and use albuterol inhaler q 3-4 h as needed -referral to pulmonology placed Assessment & Plan (06/22/2023 3:14 PM EDT): -maybe post-viral bronchial hyperactivity -POCT flu, COVID, strep negative -trial 5 day course of prednisone to assist in bronchial relaxation -chest x-ray ordered to rule out pneumonia -advised increase fluid intake and rest -drink tea with honey & lemon -return to clinic to walk-in center if symptoms worsen Obesity (BMI 30-39.9) 06/22/2023 Assessment & Plan (12/13/2023 12:13 PM EDT): -weight loss amount has been consistent over the past few months -14 lb weight loss since 09/06/23 -encouraged to continue dietary changes and daily exercise -reviewed portion sizes and increased amount of protein and vegetables rather than carbs Assessment & Plan (09/06/2023 10:34 AM EDT): -13 lb weight loss since last visit -encouraged to continue dietary changes and daily exercise Assessment & Plan (06/22/2023 3:15 PM EDT): -Healthy diet and exercise teaching completed: Eat a variety of fruit and vegetables, whole grains such as whole-wheat flour, bulgur (cracked wheat), oatmeal, and brown rice. Intake protein from beans, nuts, fish, and lean meats. Eat low-fat or fat- free dairy products. Limit highly processed foods such as hot dogs, sandwich meat, etc. Engage in minimum of 150 min of moderate intensity exercise weekly -lipids and metabolic labs ordered Routine health maintenance 06/22/2023 Assessment & Plan (09/06/2023 10:36 AM EDT): -tetanus vaccine given today Assessment & Plan (07/19/2023 1:56 PM EDT): -Hepatitis B vaccine administered for immunity -Pneumococcal vaccine administered given his recent pulmonary difficulties Assessment & Plan (06/22/2023 3:22 PM EDT): -Colonoscopy: GI referral placed -lung cancer screen: N/A based on number of pack years -due for eye exam. Referral placed -Vaccines: COVID vaccine given today; hepatitis B vaccine pending lab results; Dtap at next visit Routine screening for STI (sexually transmitted infection) 06/22/2023 Assessment & Plan (06/22/2023 3:23 PM EDT): -patient agreeable to screening -will treat/manage active infections accordingly if present Tipped teeth 04/19/2022 Dental calculus 04/19/2022 Periodontal disease 04/19/2022 Dental caries 04/19/2022 Gingival bleeding 04/19/2022 Encounters Date Type Department Care Team Description 05/17/2024 Patient Outreach [facility] [address] [place] [phone] Bhumika Melendez NP Pre-visit Planning (Pre-visit planning - LVM ) 05/14/[address] [address] Jigar Lawson MA chartprep 04/26/[address] [address] Bhumika Melendez NP Durable Medical Equipment 04/04/[address] [address] Jigar Lawson MA june recall 03/20/2024 9:00 AM EST Office Visit [facility] [address] [place] [phone] Chela Kelley Advanced periodontitis (Primary Dx); Dental calculus; Extruded tooth 03/12/[address] [address] Jigar Lawson MA chartprep 03/08/[address] [address] Bhumika Melendez NP 03/07/[address] [address] Bhumika Melendez NP Nurse Triage 03/07/[address] [address] Bhumika Melendez NP Hospital Follow-up 03/06/2024 Travel 03/06/[address] [address] Zahira Mojica RN 02/28/2024 Orders Only [facility] External Provider, [facility] from Last 3 Months Immunizations Name Administration Dates Next Due Hep B, adult 01/18/2024,08/18/2023,07/19/2023 Influenza injectable quadriv alent preservative free 01/26/2023 Influenza, seasonal, injecta ble, preservative free 12/13/2023 Pfizer Covid-19 Vaccine 12+ 01/18/2024, Pneumococcal Conjugate PCV 20 07/19/2023 Tdap 09/06/2023 Family History Medical History Relation Name Comments No Known Problems Father No Known Problems Mother Relation Name Status Comments Father Mother Social History Tobacco Use Types Packs/Day Years Used Date Smoking Tobacco: Former Cigarettes Passive Smoke Exposure: Never Smokeless Tobacco: Never Tobacco Cessation:Counseling Given: Not Answered Comments:Patient reports smoking half ppd for 4 years. Quit 04/03/2023 [...] not to disclose 2021 10:16 AM EDT Last Filed Vital Signs Vital Sign Reading Time Taken Comments Blood Pressure 118/76 03/20/2024 8:56 AM EST Pulse 76 01/18/2024 9:47 AM EDT Temperature 35.7 ??C (96.3 ??F) 01/18/2024 9:47 AM ED T Respiratory Rate 12 01/18/2024 9:47 AM EDT Oxygen Saturation 99% 12/13/2023 10:44 AM EDT Inhaled Oxygen Concentration - - Weight 100 kg (221 lb 8 oz) 01/18/2024 9:47 AM E DT Height 177.8 cm (5' 10 ) 01/18/2024 9:47 AM EDT Body Mass Index 31.78 01/18/2024 9:47 AM EDT Plan of Treatment Upcoming Encounters Date Type Department Care Team (Late st Contact Info) Description 05/29/2024 10:45 AM EST Office Visit [facility] [address] [place] [address] Bhumika Melendez NP [address] [place] [address] 06/26/2024 9:00 AM EDT Office Visit [facility] ADULT DENT[facility] [address] [place] [address] Chela Kelley [address] [place] [address] Health Maintenance Due Date Last Done Comments CT Colonography 1974 Colonoscopy 1974 Colorectal Cancer Screening 1975 Dental X-Ray: Full Mouth 1974 FIT DNA/Cologuard 1974 FIT 1974 FOBT 1974 Sigmoidoscopy 1974 Alcohol/Substance Use Screening 1986 Family Planning (PISQ) 1989 Dental Oral Exam 03/30/2024 09/28/2023, 04/19/2022 Zoster Vaccines (1 of 2) 2024 Depression Screening 04/14/2024 04/14/2023, 04/14/19 24 SDOH Screening 04/14/2024 04/14/2023 Dental Prophylaxis 09/19/2024 03/20/2024, 0 09/28/2023, 04/19/2022 Dental X-Ray: Bitewings 09/28/2024 09/28/2023, 04/19 Tobacco Screening 03/20/2025 03/20/2024 Lipid Panel 05/24/2028 05/24/2023, 04/15/2023 DTaP/Tdap/Td Vaccines (2 - Td or Tdap) 09/05/2033 09/06/2023 RSV Patients and Patients Aged 60 years or older (1 - 1-dose 75+ series) 2049 HIV Screening Completed 04/15/2023 Hepatitis C Screening Completed 04/15/2023 Pneumococcal Vaccine: 50+ Years Completed 07/19/2023 Influenza Vaccine Completed 12/13/2023, 01/26/2023 COVID-19 Vaccine Completed 01/18/2024, 03/2024, 09/11/2020, Additional history exists Hepatitis B Vaccines Completed 01/18/2024, 08/18/2023, 07/19/2023 HIB Vaccines Aged Out No longer eligi ble based on patient's age to complete this topic HPV Vaccines Aged Out No longer eligi ble based on patient's age to complete this topic Hepatitis A Vaccines Aged Out No long er eligible based on patient's age to complete this topic IPV Vaccines Aged Out No longer eligi ble based on patient's age to complete this topic Meningococcal Vaccine Aged Out No dennis octavia eligible based on patient's age to complete this topic RSV under 20 months Aged Out No longe r eligible based on patient's age to complete this topic Rotavirus Vaccines Aged Out No longer eligible based on patient's age to complete this topic Procedures Procedure Name Priority Date/Time Associated Diagnosis Comments CASE PRESENTATION, DETAILED AND EXTENSIVE TREATMENT PLANNING Routine 03/20/2024 9:00 AM EST Advanced periodontitis Dental calculus ORAL HYGIENE INSTRUCTIONS Routine 03/20/2024 9:00 AM EST Advanced periodontitis Dental calculus PROPHYLAXIS - ADULT Routine 03/20/2024 9 :00 AM EST Advanced periodontitis Dental calculus CT CHEST WO CONTRAST Routine 02/28/2024 7:47 AM EST BITEWINGS - 4 RADIOGRAPHIC IMAGES Routine 09/28/2023 10:00 AM EDT PERIODIC ORAL EVALUATION - ESTABLISHED PATIENT Routine 09/28/2023 10:00 AM EDT Dental plaque Dental calculus Periodontal disease Encounter for dental examination LIPID PANEL, STANDARD Routine 05/24/2023 11:09 AM EST Pure hypertriglyceridemia HEPATITIS PANEL, GENERAL Routine 04/15/2023 10:28 AM EST Routine screening for STI (sexually transmitted infection) HIV 1/2 ANTIGEN/ANTIBODY, FOURTH GENERATION W/RFL Routine 04/15/2023 10:28 AM EST Routine screening for STI (sexually transmitted infection) from Last 3 Months or Most Recently Relevant to Health Maintenance Results * CT Chest w/o Contrast (02/28/2024 7:47 AM EST) Anatomical Region Laterality Modality Body, Chest Computed Tomogra phy 02/28/2024 7:47 AM EST Narrative 04/23/2024 10:34 AM EST ? [facility] ?[address] ?[place] [address] ? CT Scan Report ? Signed ? Patient: Sarath Rao ?MR#: [id number] ?? 30 ? : 1975 ?Acct:[id number] ? Age/Sex: 48 / M ?ADM Date: 02/28/24 ? Loc: HO.CT ? Attending Dr: Piedad Malin ANALYST COMPETITIVE INTELLIGENCE ? Ordering Physician: Piedad Malin NP ?? Date of Service: 02/28/24 ?? Procedure(s): CT chest wo IV con ?? Accession Number(s): [id number] ? cc: Bhumika Melendez; Piedad Malin ANALYST COMPETITIVE INTELLIGENCE ? Report Number: ?? [id number]: Total DLP = ??182.00 mGy-cm ?? EXAMINATION: ?? CT CHEST WITHOUT CONTRAST ? CLINICAL INFORMATION: ?? Solitary pulmonary nodule ? COMPARISON: ?? CT chest 08/16/2023 ? TECHNIQUE: ?? Multidetector volumetric CT imaging of the chest was done. Axial MIP ?? volume rendering provided. Sagittal and coronal reformatted images were ?? obtained. ? This CT examination was performed using dose optimization techniques as ?? appropriate, variously including the following: ?? *Automated exposure control ?? *Adjustment of mA and/or kV according to patient size (this includes ?? techniques or standardized protocols for targeted exams where dose is ?? matched to indication/reason for exam; i.e. extremities or head) ?? *Use of iterative reconstruction technique ?? DLP 182 ? FINDINGS: ? ENVIRONMENTAL MONITORING SPECIALIST: Well-inflated lungs. ? LUNGS: Previously visualized groundglass opacity left upper lobe has ?? resolved. The lungs are expanded with no new pulmonary nodule or ?? groundglass density seen. No ??pulmonary nodule, mass or consolidation. ? MEDIASTINUM: Thyroid lobes are symmetrical and normal. The central ?? trachea and the bronchi are widely patent. The heart size and great ?? vessels are normal caliber. The tracheal airway is widely patent. No ?? abnormal size mediastinal hilar lymph nodes seen. No pericardial ?? effusion seen. ? CORONARY ARTERY CALCIFICATION: None visualized on this study. ? PLEURA: There is no pleural effusion. No pleural mass or thickening. ? AXILLA: Small shotty lymph nodes seen in bilateral axilla ??. The chest ?? wall is unremarkable. ? UPPER ABDOMEN: Visualized liver, spleen, pancreas and bilateral adrenal ?? glands are unremarkable. ? OSSEOUS STRUCTURES: No aggressive lytic or sclerotic process seen. ? CT/CT chest wo IV con ?? IMPRESSION: ?? Resolved left apical groundglass opacity seen on previous study. No new ?? pulmonary nodules or groundglass density seen. ? Fleischner guidelines were followed. ? Electronically signed by: ??Stevenson Rafaela MD ??04/23/2024 10:32 AM EST RP ? Dictated By: ?Rafaela,Stevenson S MD ? Signed By: ?<Electronically signed by Stevenson S Rafaela, MD in OV> ?04/23/24 1032 ? DD/ 0747 ? TD/TT: 02/28/24 0810 ? Pathology Supervisor: MSM ? Procedure Note Donotuseinterpreter, Image - 04/23/[address] [address] [address] Scan Report Signed Patient: Mil Rao#: [id number] [birth year] : 1975Acct:[id number] Age/Sex: 48 / MADM Date: 02/28/24 Loc: HO.CT Attending Dr: Piedad Malin NP Ordering Physician: Piedad Malin NP Date of Service: 02/28/24 Procedure(s): CT chest wo IV con Accession Number(s): [id number] cc: Bhumika Melendez; Piedad Malin NP Report Number: [id number]: Total DLP = 182.00 mGy-cm EXAMINATION: CT CHEST WITHOUT CONTRAST CLINICAL INFORMATION: Solitary pulmonary nodule COMPARISON: CT chest 08/16/2023 TECHNIQUE: Multidetector volumetric CT imaging of the chest was done. Axial MIP volume rendering provided. Sagittal and coronal reformatted images were obtained. This CT examination was performed using dose optimization techniques as appropriate, variously including the following: *Automated exposure control *Adjustment of mA and/or kV according to patient size (this includes techniques or standardized protocols for targeted exams where dose is matched to indication/reason for exam; i.e. extremities or head) *Use of iterative reconstruction technique DLP 182 FINDINGS: ENVIRONMENTAL MONITORING SPECIALIST: Well-inflated lungs. LUNGS: Previously visualized groundglass opacity left upper lobe has resolved. The lungs are expanded with no new pulmonary nodule or groundglass density seen. No pulmonary nodule, mass or consolidation. MEDIASTINUM: Thyroid lobes are symmetrical and normal. The central trachea and the bronchi are widely patent. The heart size and great vessels are normal caliber. The tracheal airway is widely patent. No abnormal size mediastinal hilar lymph nodes seen. No pericardial effusion seen. CORONARY ARTERY CALCIFICATION: None visualized on this study. PLEURA: There is no pleural effusion. No pleural mass or thickening. AXILLA: Small shotty lymph nodes seen in bilateral axilla . The chest wall is unremarkable. UPPER ABDOMEN: Visualized liver, spleen, pancreas and bilateral adrenal glands are unremarkable. OSSEOUS STRUCTURES: No aggressive lytic or sclerotic process seen. CT/CT chest wo IV con IMPRESSION: Resolved left apical groundglass opacity seen on previous study. No new pulmonary nodules or groundglass density seen. Fleischner guidelines were followed. Electronically signed by: Stevenson Russo MD 04/23/2024 10:32 AM EST Dictated By: Stevenson Russo MD Signed By: <Electronically signed by Stevenson Russo MD in OV> 04/23/24 1032 DD/ 0747 TD/TT: 02/28/24 0810 Pathology Supervisor: AMADOU [facility] External Provider IMG CT PROCEDURES Edited Result - Final * Lipid Panel, Standard (05/24/2023 11:09 AM EST) Triglycerides 117 <150 mg/dL [facility] Comment:Desirable Triglyceri de: less than 150 mg/dLBorderline High Triglyceride 150-199 mg/dLHigh Triglyceride: 200-499 mg/dLVery High Triglyceride: greater than or equal to 5OO mg/dL Cholesterol 143 <200 mg/dL [facility] Comment:Desirable Cholestero l: less than 200 mg/dLBorderline High Cholesterol: 200-239 mg/dLHigh Cholesterol: greater than 239 mg/dL LDL Cholesterol Calculated 74 <100 mg/dL [facility] Comment:Desirable LDL: less than 100 mg/dLNear Optimal/Above Optimal LDL: 110- 129 mg/dLBorderline High LDL: 130-159 mg/dLHigh LDL: 160-189 mg/dLVery High LDL: greater than or equal to 190 mg/dL HDL Cholesterol 46 >40 mg/dL [facility] Comment:Desirable HDL: great er than 40 mg/dL Note: This HDL assay may give artificially low results in patients with liver disease. Blood Venous blood specimen / Unknown 05/24/2023 11:09 AM EST 05/24/2023 11:09 AM EST Bhumika Melendez NP LAB BLOOD ORDERABLES Final Resu lt [facility] [address] [place] [address] [phone] * Hepatitis Panel, General (04/15/2023 10:28 AM EST) Hepatitis A IgM Nonreactive Nonreactive [facility] Comment:IgM antibodies to TOURE V not detected; does not exclude earlyacute or recovered HAV infection. ~Hepatitis B Surface Antibody NONREACTIVE Nonreactive [facility] Comment:Nonreactive: < 8.00 mIU/mL Hepatitis B Core Antibody Nonreactive Nonreactive [facility] Hepatitis C Antibody Nonreactive Nonreactive [facility] Comment:Antibodies to HCV no t detected; does not exclude early acuteHCV infection. Hepatitis B Surface Ag Negative Negative [facility] Blood 04/15/2023 10:2 8 AM EST 04/15/2023 10:28 AM EST Bhumika Melendez NP LAB BLOOD ORDERABLES Final Resu lt [facility] [address] [place] [address] [phone] * HIV-1/2 Antigen and Antibodies, Fourth Generation, with Reflexes (04/15/2023 10:28 AM EST) HIV AB/AG Nonreactive Nonreactive [facility] Comment:HIV-1 p24 Ag and/or HIV-1/HIV-2 Ab not detected.A test result that is nonreactive does not exclude thepossibility of exposure to or infection with HIV-1 and/orHIV-2. Nonreactive results in this assay for individualswith prior exposure to HIV-1 and/or HIV-2 may be due toantigen and antibody levels that are below the limit ofdetection of this assay.The [employer] HIV Ag/Ab Combo assay result andsupplemental assay results should be interpreted inconjunction with the patient's clinical presentation,history and other laboratory results. If the results areinconsistent with clinical evidence, additional testing issuggested to confirm the result. Blood Venous blood specimen / Unknown 04/15/2023 10:28 AM EST 04/15/2023 10:28 AM EST us Bhumika Melendez NP LAB BLOOD ORDERABLES Final Resu lt [facility] [address] [place] [address] [phone] from Last 3 Months or Most Recently Relevant to Health Maintenance Insurance [facility] Address: [address] [address] DENTAL - HSN PARTIAL (MEDICAID) Care Teams Senior Accountant Relationship Specialty Start Date End Date Bhumika Melendez NP [address] [place] [id number] PCP - General Family Medicine 04/14/23
--- OUTSIDE RECORDS SUMMARY | 2024-05-24 12:53 | XMS_ITS | Encounter Summary ---
Author Organization [employer] Address [address] [facility] [address] [place] [address] Care Team Providers Care Meat Dresser Name Role Phone Bhumika Melendez NP Primary Care Provider [phone] Reason for Visit * Reason Onset Date Comments Durable Medical Equipment 04/26/2024 Encounter Details Date Type Department Care Team (Late st Contact Info) Description 04/26/2024 Telephone [facility] [address] [place] [address] Bhumika Melendez NP [address] [place] [address] Durable Medical Equipment Social History Tobacco Use Types Packs/Day Years [...] encounter Miscellaneous Notes * Telephone Encounter - Barbara Dueñas - 05/10/2024 3:05 PM EST Received fax from [facility] confirming CPAP set up completion. Sent to scan. * Telephone Encounter - Barbara Dueñas - 05/01/2024 12:04 PM EST Received fax from [facility] confirming receipt of notes and Rx and stating pt has been contacted/vm leftto schedule CPAP appointment. Fax scanned into media. * Telephone Encounter - Barbara Dueñas - 04/26/2024 9:51 AM EST Received message in [facility] that CPAP order was on hold pending Sleep Study and clinical note. Documents scanned into [facility] as requested. Sleep Study also scanned into media. documented in this encounter Plan of Treatment Upcoming Encounters Date Type Department Care Team (Late st Contact Info) Description 05/29/2024 10:45 AM EST Office Visit [facility] [address] [place] [address] Bhumika Melendez NP [address] [place] [address] 06/26/2024 9:00 AM EDT Office Visit [facility] ADULT DENTAL [address] [place] [address] WarrenChela [address] [place] [address] documented as of this encounter Visit Diagnoses Not on filedocumented in this encounter Additional Health Concerns Assessment Noted Time PHQ-9 Depression Total Score: 0 04/14/19 24 1:12 PM EST documented as of this encounter Care Teams Meat Dresser Relationship Specialty Start Date End Date Bhumika Melendez NP [address] [place] [address] PCP - General Family Medicine 04/14/23 documented as of this encounter
--- OUTSIDE RECORDS SUMMARY | 2024-05-24 12:53 | XMS_ITS | Encounter Summary ---
Author Organization [employer] Address [address] [facility] [address] [place] [address] Care Team Providers Care Assistant Corporation Counsel Name Role Phone ManishmarisolBhumika NP Primary Care Provider [phone] Reason for Visit * Reason Onset Date Comments chartprep 05/14/2024 Encounter Details Date Type Department Care Team (Late st Contact Info) Description 05/14/2024 Telephone [facility] [address] [place] [address] Jigar Lawson MA chartprep Social History Tobacco Use Types Packs/Day Years [...] your housing situation today? I have jules treva 04/07/[address] you li [...] encounter Miscellaneous Notes * Telephone Encounter - Jigar Lawson MA - 05/14/2024 2:24 PM EST Chart Prep Labs: done Images: done Vaccines due: yes zoster vaccine Referrals: complete Screenings: colonoscopy Overdue care gaps: Sbirt, SDOH, PHQ-9, Oral Health, TIM-7 documented in this encounter Plan of Treatment Upcoming Encounters Date Type Department Care Team (Late st Contact Info) Description 05/29/2024 10:45 AM EST Office Visit [facility] [address] [place] [address] Bhumika Melendez NP [address] [place] [address] 06/26/2024 9:00 AM EDT Office Visit [facility] ADULT DENTAL [address] [place] [address] Chela Kelley [address] [place] [address] documented as of this encounter Visit Diagnoses Not on filedocumented in this encounter Additional Health Concerns Assessment Noted Time PHQ-9 Depression Total Score: 0 04/14/19 24 1:12 PM EST documented as of this encounter Care Teams Assistant Corporation Counsel Relationship Specialty Start Date End Date Bhumika Melendez NP [address] [place] [id number] PCP - General Family Medicine 04/14/23 documented as of this encounter
--- OUTSIDE RECORDS SUMMARY | 2024-05-24 12:53 | XMS_ITS | Encounter Summary ---
Author Organization [employer] Address [address] [place] [address] 7t [place] [address] Care Team Providers Care Counter Tender Name Role Phone Bhumika Melendez NP Primary Care Provider [phone] Encounter Details Date Type Department Care Team (Latest Contact Info) Description 03/11/2021 Abstract [facility] CONVERSIONS Dental, Provider, DDS Social History Tobacco Use Types Packs/Day Years Used Date Smoking Tobacco: Never Assessed Sex and Gender Information Value Date Recorded [...] Description 05/29/2024 10:45 AM EST Office Visit [facility] MEDICINE [address] [place] [address] Bhumika Melendez NP [address] [place] [address] 06/26/2024 9:00 AM EDT Office Visit [facility] ADULT DENTAL [address] [place] [address] WarrenChela antunez [address] [place] [address] documented as of this encounter Visit Diagnoses Not on filedocumented in this encounter Care Teams Counter Tender Relationship Specialty Start Date End Date Bhumika Melendez NP [address] [place] [address] PCP - General Family Medicine 04/14/23 documented as of this encounter
[2024-05-28 14:19] VITALS: BMI 31.7
--- NOTE | 2024-05-29 09:48 | HO.ANESPROP2 ---
Documented by User: Jes Trimble NP 05/29/24 09:49 HPI - Anesthesia Eval Consult details Narrative: 49yo M for Colonoscopy PMFSH Active Problems Active Problems: All Active Problems Pulmonary nodule (Acute) Nocturnal hypoxemia (Acute) Severe obstructive sleep apnea (Acute) Abnormal finding on CT scan (Acute) Daytime somnolence (Acute) Dyspnea on exertion (Acute) Asthma (Acute) COVID-19 (Acute) Past Medical History Medical History Gout Asthma JOLANTA (obstructive sleep apnea) Pulmonary nodule High cholesterol Surgical History Surgical History No pertinent past surgical history Social History Social History Are you a primary body care manager to a significant other at home: No Do you presently have visiting nurse or other home services: No Alcohol intake: unknown Patient Tobacco Use Status: Former Tobacco user Tobacco use type: Cigarette Cigarette Packs Per Day: 0.5 Years Smoked: 4 Have you been hit, kicked, punched, or otherwise hurt by someone within the past year? If so, by whom?: No Are you DNR?: No Advance Directives: No Advance Directives Information Provided: Yes Recently lost weight without trying: No Nutrition Risks: No Nutritional Risk Meds Allergies Allergy/AdvReac Type Severity Reaction Status Date / Time No Known Allergies Allergy Verified 05/30/24 08:50 Home Medications ?Medication ?Instructions ?Recorded ?Confirmed ?Last Taken ?Type No Known Home Meds 05/30/24 05/30/24 Unknown History Exam Height,Weight and Vital Signs: Height 5 ft 10 in Weight 100.244 kg Narrative Narrative: ECHO 2023 Conclusions: - The left ventricular systolic function is mildly decreased. The calculated ejection fraction is 51% by biplane method. - No obvious valvular pathology seen on this study. Assessment and Plan Assessment Anesthesia Assessment: Chart Reviewed Documented by User: Anam Chung MD 05/30/24 09:54 [facility] Past Medical History Medical History Gout Asthma JOLANTA (obstructive sleep apnea) Pulmonary nodule High cholesterol Family History Family history of problems with anesthesia: No Surgical History Surgical History No pertinent past surgical history History of Problems with Anesthesia: No Social History Social History Are you a primary body care manager to a significant other at home: No Do you presently have visiting nurse or other home services: No Alcohol intake: unknown Patient Tobacco Use Status: Former Tobacco user Tobacco use type: Cigarette Cigarette Packs Per Day: 0.5 Years Smoked: 4 Have you been hit, kicked, punched, or otherwise hurt by someone within the past year? If so, by whom?: No Are you DNR?: No Advance Directives: No Advance Directives Information Provided: Yes Recently lost weight without trying: No Nutrition Risks: No Nutritional Risk Meds Allergies Allergy/AdvReac Type Severity Reaction Status Date / Time No Known Allergies Allergy Verified 05/30/24 08:50 Home Medications ?Medication ?Instructions ?Recorded ?Confirmed ?Last Taken ?Type No Known Home Meds 05/30/24 05/30/24 Unknown History Exam Airway Mallampati Class: II TM Dist: <=3cm Neck ROM: Full Loose/Missing/Broken Teeth: No Heart: ok Lungs: ok Assessment and Plan Assessment Anesthesia Assessment: Anesthesia Plan Discussed Final Anesthetic Review Family History of Problems with Anesthesia: No History of Problems with Anesthesia: No NPO: Yes ASA Class: III Final Preanesthetic Review: No Changes in Pt Med Stat, Meds/Allgs Chart Reviewed, Consent Obtained/Reviewed and Anes Risks/Benef Reviewed Patient Risk: Intermediate Procedure Risk: Low Anesthetic Plan Anesthetic Plan: MAC: Disposition: Standard PACU
[2024-05-30 08:47] VITALS: BMI 30.7
[2024-05-30] MEDS: Lactated Ringers 1,000 ML 100 ML IVCONT (08:56)
[2024-05-30 09:10] VITALS: BP 117/73; PULSE 78; RESP 18; TEMP 36.7; O2SAT 96
--- NOTE | 2024-05-30 09:46 | P.HPSUR_ITS ---
Pre-Procedural Eval Section A - 24 Hr Update-Section A only Date of Service: 05/30/24 Section B - Complete if H&P > 30 days Chief Complaint: Encounter for screening for malignant neoplasm of Relevant Family History (Specify if Yes): No Relevant Social History: None Present Medications: see Short Stay Collaborative assessment Medical History: Significant History (Gout Asthma JOLANTA (obstructive sleep apnea) Pulmonary nodule High cholesterol) History of Previous Operations: No relevant previous surgery Allergies: Allergies Allergy/AdvReac Type Severity Reaction Status Date / Time No Known Allergies Allergy Verified 05/30/24 08:50 Review of Systems Sugical H&P ROS: Negative: Constitution, Cardiovascular, Respiratory, Neurological, Psychiatric, Hem-Onc, Allergic/Immunologic, Gastrointestinal, Genitourinary, Musculoskeletal, Integumentary, Endocrine and E yes/Ears/Nose/Throat Exam Surgical H&P Exam: Normal: HEENT, Normal: Heart, Normal: Lungs, Normal: Extremities, Normal: Abdomen, Normal: Skin and Normal: Neurological Plan Diagnosis/Plan: Unchanged I have reviewed the history and physical and performed a pertinent physical examination on my patient. No changes have occurred unless specified. Time Spent With Patient Time: Total time managing care of this patient today ____ minutes.
--- NOTE | 2024-05-30 10:14 | P.OPN-COLO_ITS ---
Colonoscopy Operative Note Operative Note Date of Service: 05/30/24 Narrative: Operative Information Procedure Description: Colonoscopy Indication: screening Anesthesia: MAC COLONOSCOPY Instrument: Olympus variable stiffness pediatric scope 190L Colonoscopy Monitoring: Vital signs and clinical assessment, continuous EKG monitoring, Pulse oximetry, Carbon Dioxide monitoring and blood pressure monitoring were done throughout the procedure. Colon withdrawal time was 10 minutes. Procedure: The patient was placed in the left lateral decubitis position and pre-procedure medications were administered. After a digital rectal examination of the ano-rectum, the video colonoscope was inserted into the rectum and advanced through the colon to the cecum/TI. The colonoscope was slowly withdrawn in a retrograde panoramic fashion and the colon mucosa was carefully examined including a retroflexed view of the rectum. Findings and interventions are described below. Procedure Difficulty: easy Findings: Terminal Ileum-normal Cecum:normal Ascending Colon: 6-8 mm sessile polyp removed with cold snare Transverse Colon -normal Descending Colon:normal Sigmoid Colon: 10 mm sessile polyp removed with cold snare Rectum: Retroflexion with small internal hemorrhoids seen, grade I Anorectum - normal Intervention: cold snare Colon preparation: Proctor Bowel Preparation Scale Right colon; 2 Transverse colon: 2 Left colon; 2 (0 = Unprepared colon segment with mucosa not seen due to solid stool that cannot be cleared. 1 = Portion of mucosa of the colon segment seen, but other areas of the colon segment not well seen due to staining, residual stool and/or opaque liquid. 2 = Minor amount of residual staining, small fragments of stool and/or opaque liquid, but mucosa of colon segment seen well. 3 = Entire mucosa of colon segment seen well with no residual staining, small fragments of stool or opaque liquid) Impression and Post Procedure Diagnosis: colon polyps internal hemorrhoids Plan: High fiber diet leaflet Avoid straining at stool, epsom salts and sitz bath, anusol supps or cream Repeat Colonoscopy in 3-4 years due to polyps or earlier if clinically indicated Above findings were reviewed with the patient and relevant handouts were provided if indicated.
[2024-05-30 10:21] VITALS: BP 107/58; PULSE 75; RESP 18; TEMP 36.9; O2SAT 96
[2024-05-30 10:36] VITALS: BP 122/82; PULSE 68; RESP 20; TEMP 36.1; O2SAT 98
== END 2024-05-30 11:06 | disposition home or self-care (01) ==
PROVIDERS: PCP Nurse Practitioner; Visit Provider Internal Medicine Gastroenterology
PROC: 0DJD8ZZ Inspection of Lower Intestinal Tract, Via Natural or Artificial Opening Endoscopic (ICD-10-PCS; CPT 45378; principal; 2024-05-30 10:00)
DX: Z12.11 Encounter for screening for malignant neoplasm of colon (principal); D12.2 Benign neoplasm of ascending colon; D12.5 Benign neoplasm of sigmoid colon; K64.0 First degree hemorrhoids; E78.5 Hyperlipidemia, unspecified; G47.33 Obstructive sleep apnea (adult) (pediatric); J45.909 Unspecified asthma, uncomplicated
CPT/HCPCS: 45385; 88305; J2003; J2704

== ENCOUNTER → 2024-05-30 07:45 | Outpatient (BNV) | payer OTHER, SELFPAY | PROVIDERS: PCP Nurse Practitioner; Visit Provider Internal Medicine Gastroenterology | DX: Z12.11 Encounter for screening for malignant neoplasm of colon (principal); D12.2 Benign neoplasm of ascending colon; D12.5 Benign neoplasm of sigmoid colon; K64.0 First degree hemorrhoids | CPT/HCPCS: 45385 ==

== ENCOUNTER 2024-10-20 12:02 | Emergency (ER) | payer SELFPAY ==
[2024-10-20] VITALS (8 sets, daily range): BP systolic 112–150; BP diastolic 66–100; PULSE 74–91; RESP 16–21; TEMP 36.6–38.2; O2SAT 94–99; BMI 35.2
--- NOTE | ~2024-10-20 | CT_ITS ---
CLINICAL HISTORY: right sided ear head swelling --- Additional Notes or Special Instructions: Concern for abscess vs. mastoiditis vs. cellulitis CT MAXILLOFACIAL WITH CONTRAST Comparison: None provided Findings: No acute fractures. No dislocations. Temporomandibular joints are intact. There is subcutaneous edema in the right periparotid and periauricular regions. There is auricular skin thickening with edema in the external auditory canal. There is fluid in the external and middle auditory canals. Likely thickening of the tympanic membrane. Intact middle ear ossicles. There is opacification of multiple right mastoid air cells. Nonspecific minimal fluid in the left external auditory canal with no significant canal edema or auricular skin thickening. No sinus fluid. Orbits normal. Visualized intracranial contents are within normal limits. No foreign bodies. Mild asymmetrical heterogeneous enhancement of the right parotid gland. No wall enhancing fluid collection. Multiple nonenlarged cervical and submandibular lymph nodes are nonspecific but likely reactive in etiology. IMPRESSION: 1. Findings are most consistent with right otomastoiditis. Otitis externa is moderate to severe degree. Otitis media is mild degree. 2. No soft tissue abscess identified. 3. Likely reactive right parotitis. This document has been electronically signed by: Macey To DO on 10/20/2024 16:21:49
--- NOTE | 2024-10-20 12:16 | ED_ITS ---
HPI - General Adult General Chief complaint: Ear Problems Stated complaint: got bit by something on right ear/ swollen hurts Time Seen by Provider: 10/20/24 13:55 Source: patient and other (patient's significant other) Mode of arrival: ambulatory Limitations: no limitations History of Present Illness ED Provider: Melani Harvey PA-C HPI narrative: Patient is a 49 year old male with past medical history of asthma and JOLANTA presenting to ER on 10/20 with chief complaint of right ear pain that started on 10/17. He was at home when he experienced sudden, sharp pain inside his right ear canal, causing him to believe he was bit by a bug though no bug or bite was found. The inside of his right ear has been constantly burning since, and pain has spread to the areas of his scalp around his ear and in his right jaw when chewing. He has also noticed swelling around his external ear. He has not lost range of motion in his jaw. The pain was preceded by about 3 weeks of constant itchiness in his right ear. He has tried using Lidocaine 4% ear drops which made his ear pain and burning sensation worse. He denies fevers, chills, body aches, headache, vision changes, neck pain, chest pain, shortness of breath, or any other associated symptoms. He reports no symptoms in his left ear. He has not swam or submerged his head in water recently. He has never had this before. He does not recall ever having chickenpox as a child. Relieving factors: none Exacerbating factors: none Treatments prior to arrival: other (Lidocaine 4% drops OTC) Related Data Home Medications ?Medication ?Instructions ?Recorded ?Confirmed No Known Home Meds 05/30/24 05/30/24 Allergies Allergy/AdvReac Type Severity Reaction Status Date / Time No Known Allergies Allergy Verified 10/20/24 12:18 Review of Systems 2 Constitutional: Constitutional: Reports no additional constitutional complaints, Denies chills, Denies fever(s) and Denies night sweats Eyes: Eyes: Reports no additional eye complaints, Denies blurry vision, Denies change in vision, Denies diplopia, Denies eye discharge, Denies loss of vision and Denies eye pain ENT: Reports as per HPI and Denies dizziness Comments: right ear pain right sided jaw pain Cardiovascular: Cardiovascular: Reports no additional cardiovascular complaints, Denies chest pain, Denies lightheadedness, Denies Loss of Consciousness and Denies dyspnea Respiratory: Respiratory: Reports no additional respiratory complaints and Denies dyspnea Gastrointestinal: Gastrointestinal: Reports no additional gastrointestinal complaints, Denies abdominal pain, Denies melena, Denies hematochezia, Denies change in bowel habits and Denies change in stool character Genitourinary: Genitourinary: Reports no additional male genitourinary complaints, Denies hematuria, Denies oliguria, Denies difficulty urinating, Denies dysuria, Denies urinary frequency, Denies urinary hesitancy, Denies urinary incontinence and Denies urinary urgency Musculoskeletal: Musculoskeletal: Reports no additional musculoskeletal complaints, Denies numbness and Denies tingling Neurologic: Denies dizziness, Denies loss of vision, Denies numbness and Denies tingling Psychiatric: Psychiatric: Reports no additional psychiatric complaints Endocrine: Endocrine: Reports no additional endocrine complaints Hematologic/Lymphatic: Hematologic/Lymphatic: Reports no additional hematologic/lymphatic complaints Allergic/Immunologic: Allergic/Immunologic: Reports no additional allergic/immunologic complaints [facility] Past Medical History Attestation statement: The following information was validated with the patient. (patient's significant other validated all information) Source: old records reviewed, nursing notes reviewed and other (patient's significant other provided additional history and confirmed the history provided by the patient. ) Medical History Gout Asthma JOLANTA (obstructive sleep apnea) Pulmonary nodule High cholesterol Surgical History No pertinent past surgical history Social History Social History Are you a primary child care group leader to a significant other at home: No Do you presently have visiting nurse or other home services: No Alcohol intake: unknown Patient Tobacco Use Status: Former Tobacco user Tobacco use type: Cigarette Cigarette Packs Per Day: 0.5 Years Smoked: 4 Smoked in Last 30 Days: Yes Advance Directives: No Advance Directives Information Provided: Yes Do you have a plan to hurt others: No Plan Physical Exam ED Vital Signs: Vital Signs - 24 hr 10/20/24 12:15 10/20/24 14:01 10/20/24 14:16 Temperature 97.9 F 100.7 F H Pulse Rate 91 90 Respiratory Rate 16 20 Blood Pressure 150/100 H 130/94 H 121/75 Pulse Oximetry 99 95 Oxygen Delivery Method Room Air Room Air 10/20/24 15:05 10/20/24 16:16 10/20/24 16:56 Temperature 99.5 F Pulse Rate 80 74 Respiratory Rate 21 H 18 Blood Pressure 114/66 125/73 Pulse Oximetry 94 95 Oxygen Delivery Method Room Air Room Air 10/20/24 16:58 Temperature Pulse Rate Respiratory Rate Blood Pressure 113/73 Pulse Oximetry Oxygen Delivery Method BMI result Body Mass Index 35.2 Const General: cooperative, no acute distress, alert and awake Nutritional Appearance: well nourished Orientation/consciousness: patient oriented x3 HENMT Head: Yes atraumatic Ears: hearing grossly normal bilaterally, TM normal on the left, Abnormal EAC present erythema and edema (right EAC unable to visualize TM d/t edema) and mastoid abnormal (right mastoid area slightly boggy and tender to palpation) General nose exam: Normal external nose present, no nasal discharge noted and no epistaxis Face and sinus: Yes normal facial exam, No abrasion and No laceration Mouth: Normal oral and palatal mucosa present, no drooling, no muffled voice and abnormal TMJ (right sided pain with full ROM of jaw) Eyes General: appearance normal, both eyes and all related structures Periorbital: periorbital findings normal Eyelids: Yes eyelids normal Conjunctivae: conjunctivae normal Pupils: Equal, round and reactive pupils present EOM: EOMs intact bilaterally Neck Neck: Yes normal visual inspection, Yes full ROM and Yes no lymphadenopathy Resp Effort & Inspection: normal respiratory effort and able to speak in complete sentences Neuro General: patient oriented x3, moves all extremities and CN's II-XI intact bilaterally Cranial nerves: Yes Equal, round and reactive pupils present Cognition (Neuro): normal cognition Extrem General: Yes normal to inspection, Yes full ROM and Yes capillary refill normal Psych Appearance: grossly normal Mental Status: mental status grossly normal Affect: normal affect Attitude: cooperative Thought process: Normal thought process present Thought content: Normal thought content present Insight: Good insight present (Psych) Course Course Course Narrative: Therese Reyes [employer] 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 Deferred additional HPI, ROS, PE to primary provider. 49 yo male with no known medical history here with complaints of right ear pain/swelling since evening. Patient has swelling, redness to ear and swelling behind the ear with TTP. May need CT mastoids. Will obtain labs, viral testing. VSS Medications Administered Discontinued Medications Generic Name Dose Route Start Last Admin Trade Name Handy PRN Reason Stop Dose Admin Acetaminophen 1,000 mg in 100 mls @ 400 mls/hr 10/20/24 14:20 10/20/24 14:42 Ofirmev IV 10/20/24 14:34 Infused ONCE ONE Infusion Cefepime HCl 2 gm in 50 mls @ 100 mls/hr 10/20/24 14:20 10/20/24 15:02 Maxipime IV 10/20/24 14:49 Infused ONCE ONE Infusion Sodium Chloride 1,000 mls @ 999 mls/hr 10/20/24 14:30 10/20/24 16:55 Ns IV 10/20/24 15:30 Infused .Q1H1M SHREYA Infusion Metronidazole 500 mg in 100 mls @ 100 mls/hr 10/20/24 16:25 10/20/24 16:55 Flagyl IV 10/20/24 17:24 100 mls/hr ONCE ONE Administration Iohexol 100 ml 10/20/24 14:51 10/20/24 14:51 Iohexol 350 Mg/Ml 100 Ml Infus..Btl IV 10/20/24 14:52 85 ml ONCE ONE Administration Medical Decision Making Medical Decision Making MDM Narrative: Patient is a 49 year old assigned male at with a history of asthma and JOLANTA presenting to the emergency department today with right sided ear pain / swelling. Patient's physical exam was as noted in the physical exam portion of this note - significant swelling of the right EAC / right mastoid area with painful palpation and painful movement of the jaw on the right side. Patient was also febrile. Patient's blood work showed a WBC count of 16.1. Patient's CT facial bones showed a right otomastoiditis with severe right otitis externa and mild otitis media. I confirmed with our hosptialist team that they would not accept a patient for admission without ENT coverage. I called and spoke to the covering ENT provider for [facility] who recommended hospital admission with fluorquinolone PO vs. IV and ciprodex drops with a wick. However, they do not have any beds at their hospital to accept and state [facility] is in the same position with not having any beds. I called and spoke to [facility] who stated they are at capacity. I called and spoke to [facility] who agreed to accepting their patient to their main emergency department under Dr. Higginbotham. Patient received IV Vancomycin, flagyl, and cefepime as well as IV tylenol. I did not consider the patient to be septic (@1730). I explained my physical exam findings as well as all test results to the patient. I answered all questions asked by the patient. Patient verbalized agreement and understanding with this treatment plan and transfer to the [facility] Emergency Department (Dr. Higginbotham). Differential Diagnosis Differential Diagnoses: The differential diagnosis associated with the presentation includes Mastoiditis Cellulitis Facial abscess Otomastoiditis Admission/Observation Consideration of admission/observation: Escalation of care including admission/observation considered Patient transferred to the [facility] ED as noted in the MDM Rationale portion of this note. Consult Healthcare Provider Management of the patient was discussed with: [employer] (spoke to the covering [facility] ENT as noted in the MDM Rationale portion of this note. ) Lab Data [facility] Lab Attestation statement: I reviewed the patient's lab results. My interpretation of these results are in the MDM Rationale portion of this note. 10/20/24 12:40 10/20/24 12:39 Labs: Lab Results 10/20/24 10/20/24 10/20/24 Range/Units 12:39 12:40 14:22 WBC 16.1 H (4.8-10.8) X10*3/uL RBC 4.71 (4.60-5.80) X10*6/uL Hgb 15.2 (14.0-18.0) g/dl Hct 41.9 L (42.0-52.0) % MCV 89.0 (80.0-98.0) fL MCH 32.3 (27.0-33.0) pg MCHC 36.3 H (31.0-36.0) g/dl RDW 11.8 (11.0-16.0) % Plt Count 275 (160-400) X10*3/uL MPV 10.6 (9.4-12.4) fL Immature Gran % (Auto) 0.6 H (0.0-0.4) % Neut % (Auto) 79.3 H (45-73) % Lymph % (Auto) 10.9 L (20-40) % Dubois % (Auto) 7.8 (2-11) % Eos % (Auto) 1.2 (0-4) % Baso % (Auto) 0.2 (0-2) % Lymph # (Auto) 1.8 (1.2-4.9) X10*3/uL Dubois # (Auto) 1.3 H (0.1-1.2) X10*3/uL Eos # (Auto) 0.2 (0.0-0.4) X10*3/uL Baso # (Auto) 0.0 (0.0-0.2) X10*3/uL Abs Immat Gran (auto) 0.10 H (0.00-0.03) X10*3/uL Absolute Neuts (auto) 12.7 H (2.0-8.3) x10*3/uL Absolute Nucleated RBC 0.000 (0.0-0.012) X10*3/uL Nucleated RBC % (auto) 0.0 (0.0-0.2) /100WBC Sodium 139 (135-145) mmol/L Potassium 4.2 (3.3-5.1) mmol/L Chloride 104 (96-108) mmol/L Carbon Dioxide 23 (22-29) mmol/L Anion Gap 16 (12-20) BUN 12 (9-16) mg/dL Creatinine 0.84 (0.5-1.4) mg/dL Estim Creat Clear Calc 131.3 Estimated GFR > 60 Random Glucose 138 H (60-115) mg/dL Lactic Acid 1.4 (0.5-2.0) mmol/L Calcium 9.2 (8.4-10.2) mg/dL Influenza Type A (PCR) NEGATIVE (Negative) Influenza Type B (PCR) NEGATIVE (Negative) RSV RNA Qual (PCR) NEGATIVE (Negative) SARS-CoV-2 RNA (RT-PCR) NEGATIVE (Negative) Independent Interpretation I performed an independent interpretation of an: CT Scan Interpretation: My interpretation is in agreement with the radiologist's impression of this imaging study. L Report Number: [id number]: Total DLP = 505.00 mGy-cm CLINICAL HISTORY: right sided ear head swelling --- Additional Notes or Special Instructions: Concern for abscess vs. mastoiditis vs. cellulitis CT MAXILLOFACIAL WITH CONTRAST Comparison: None provided Findings: No acute fractures. No dislocations. Temporomandibular joints are intact. There is subcutaneous edema in the right periparotid and periauricular regions. There is auricular skin thickening with edema in the external auditory canal. There is fluid in the external and middle auditory canals. Likely thickening of the tympanic membrane. Intact middle ear ossicles. There is opacification of multiple right mastoid air cells. Nonspecific minimal fluid in the left external auditory canal with no significant canal edema or auricular skin thickening. No sinus fluid. Orbits normal. Visualized intracranial contents are within normal limits. No foreign bodies. Mild asymmetrical heterogeneous enhancement of the right parotid gland. No wall enhancing fluid collection. Multiple nonenlarged cervical and submandibular lymph nodes are nonspecific but likely reactive in etiology. IMPRESSION: 1. Findings are most consistent with right otomastoiditis. Otitis externa is moderate to severe degree. Otitis media is mild degree. 2. No soft tissue abscess identified. 3. Likely reactive right parotitis. This document has been electronically signed by: Macey To DO on 10/20/2024 16:21:49 Dictated By: Macey To MD Signed By: Electronically signed by Macey To MD 10/20/24 1623 Radiology Impression Discussion of test interpretation with radiology: I have reviewed the radiologist's reading. Independent Historian Clinical information obtained from an independent historian. History obtained from or confirmed by: Other (patient's significant other provided additional history and confirmed the history provided by the patient) Critical Care Time Critical Care Time Critical Care Time: Yes Total Critical Care Time: 56 Attestation: I spent 56 minutes of Critical Care Time with this patient. This does not include time spent on separately reported billable procedures. Discharge Plan Discharge Clinical Impression: Acute mastoiditis, Otitis externa, Otitis media Patient Disposition: [facility] Transfer Details: [facility] (accepted under Dr. Higginbotham) Prescriptions: No Action No Known Home Meds Print Language: Filipino
[2024-10-20 12:45] LABS: MANUAL DIFF FLAG NO
[2024-10-20 12:57] LABS: Anion Gap 16 (12-20); Blood Urea Nitrogen 12 mg/dL (9-16); Calcium 9.2 mg/dL (8.4-10.2); Carbon Dioxide 23 mmol/L (22-29); Chloride 104 mmol/L (96-108); Creatinine Clr Calc Pharmacy 131.3; Estimated Glomerular Filt Rate > 60; Potassium 4.2 mmol/L (3.3-5.1); Sodium 139 mmol/L (135-145)
[2024-10-20 13:05] LABS: Hematocrit 41.9 % (42.0-52.0); Hemoglobin 15.2 g/dl (14.0-18.0); Imm Gran Abs Auto 0.10 X10*3/uL (0.00-0.03); Imm Gran Pct Auto 0.6 % (0.0-0.4); Lymphocytes Absolute Auto 1.8 X10*3/uL (1.2-4.9); Mean Corpuscular HGB Conc 36.3 g/dl (31.0-36.0); Mean Corpuscular Hemoglobin 32.3 pg (27.0-33.0); Mean Corpuscular Volume 89.0 fL (80.0-98.0); NRBC Abs Auto 0.000 X10*3/uL (0.0-0.012); NRBC Pct Auto 0.0 /100WBC (0.0-0.2); Platelet Count 275 X10*3/uL (160-400); Red Blood Count 4.71 X10*6/uL (4.60-5.80); White Blood Count 16.1 X10*3/uL (4.8-10.8)
[2024-10-20 13:40] LABS: Resp Syncy Virus RNA Qual PCR NEGATIVE (Negative); SARS COV2 PCR INHOUSE NEGATIVE (Negative)
[2024-10-20] MEDS: cefEPime HCl/D5W 2 GM/50 ML PIGGYBACK IV (14:28)
[2024-10-20] MEDS: iohexoL 350 MG/ML 100 ML INFUS..BTL IV (14:51)
[2024-10-20] MEDS: metroNIDAZOLE/NS 500 MG/100 ML PIGGYBACK 100 MG IV (16:55)
--- NOTE | 2024-10-20 18:31 | PC.NURSE ---
Nurse to Nurse report given to Marika ANGULO at [facility].
== END 2024-10-20 18:39 | disposition short-term general hospital (02) ==
PROVIDERS: Nurse Practitioner Family; Physician Assistant Medical; Emergency Provider Emergency Medicine; PCP Nurse Practitioner
DX: H70.001 Acute mastoiditis without complications, right ear (principal); H60.501 Unspecified acute noninfective otitis externa, right ear; H92.01 Otalgia, right ear; H66.91 Otitis media, unspecified, right ear; R11.0 Nausea; Z87.891 Personal history of nicotine dependence; Z03.818 Encounter for observation for suspected exposure to other biological agents ruled out
CPT/HCPCS: 36415; 70487; 80048; 83605; 85025; 87040; 87637; 96361; 96365; 96375; 99285; 99291; J0131; J0692; J1836; Q9967

== ENCOUNTER → 2024-10-20 14:06 | Outpatient (BNV) | payer SELFPAY | PROVIDERS: PCP Nurse Practitioner; Visit Provider Radiology Diagnostic Radiology | DX: H60.311 Diffuse otitis externa, right ear (principal) | CPT/HCPCS: 70487 ==

== ENCOUNTER 2025-01-20 14:06 | Outpatient (REF) | payer MEDICAID, SELFPAY ==
[2025-01-20 16:11] LABS: MANUAL DIFF FLAG NO
[2025-01-20 16:15] LABS: Hematocrit 47.3 % (42.0-52.0); Hemoglobin 16.5 g/dl (14.0-18.0); Imm Gran Abs Auto 0.13 X10*3/uL (0.00-0.03); Imm Gran Pct Auto 1.1 % (0.0-0.4); Lymphocytes Absolute Auto 2.3 X10*3/uL (1.2-4.9); Mean Corpuscular HGB Conc 34.9 g/dl (31.0-36.0); Mean Corpuscular Hemoglobin 31.5 pg (27.0-33.0); Mean Corpuscular Volume 90.3 fL (80.0-98.0); NRBC Abs Auto 0.000 X10*3/uL (0.0-0.012); NRBC Pct Auto 0.0 /100WBC (0.0-0.2); Platelet Count 348 X10*3/uL (160-400); Red Blood Count 5.24 X10*6/uL (4.60-5.80); White Blood Count 11.4 X10*3/uL (4.8-10.8)
[2025-01-20 17:29] LABS: Folate 14.7 ng/mL (> or = 4.0); Vitamin B12 475 pg/mL (200-900)
== END 2025-01-20 14:07 | disposition home or self-care (01) ==
LOC: HO.HHCL 14:06
PROVIDERS: PCP Nurse Practitioner; Visit Provider Nurse Practitioner
DX: R61 Generalized hyperhidrosis (principal); R41.89 Other symptoms and signs involving cognitive functions and awareness
CPT/HCPCS: 36415; 82607; 82746; 84443; 85025

== ENCOUNTER 2025-02-03 14:42 | Emergency (ER) | payer MEDICAID, SELFPAY ==
--- NOTE | ~2025-02-03 | XR_ITS ---
EXAMINATION: XR CHEST CLINICAL INFORMATION: cough COMPARISON: 06/21/2023. TECHNIQUE: 2 views of the chest were obtained. FINDINGS: The cardiac, hilar, and mediastinal contours are normal. The lungs are clear bilaterally. There is no pneumothorax or pleural effusion. There is no focal osseous or soft tissue abnormality. XR/XR chest 2V IMPRESSION: No active pulmonary disease. Electronically signed by: Kenroy Hewitt MD 02/03/2025 03:28 PM JEREMY
[2025-02-03 14:46] VITALS: BP 152/85; PULSE 106; RESP 24; TEMP 36.8; O2SAT 93; BMI 33.9
--- NOTE | 2025-02-03 14:46 | ED.GENADULT ---
HPI - General Adult General Chief complaint: Upper Respiratory Symptoms Stated complaint: cough, cold for a month. sweats, weakness Time Seen by Provider: 02/03/25 19:05 Source: patient Mode of arrival: ambulatory Limitations: no limitations History of Present Illness ED Provider: DR. Chopra HPI narrative: 49-year-old male history of asthma, obstructive sleep apnea presented with upper respiratory symptoms, productive cough with yellow sputum x1 month patient also noticed night sweats, feeling tired and fatigued, no other sick contacts, no recent travel, no history of exposure to TB, patient also complained of 2 days of nonbloody yellow diarrhea with no abdominal pain, no fever, no chills. Related Data Previous Rx's ?Medication ?Instructions ?Recorded albuterol sulfate 90 mcg/actuation 2 puff inhalation Q6H PRN 02/03/25 aerosol inhaler (Ventolin HFA) shortness of breath or wheezing #6.7 grams azithromycin 250 mg tablet See Rx Instructions PO .COMPLEX #6 02/03/25 (Zithromax Z-Donovan) tabs guaifenesin 200 mg/5 mL oral liquid 200 mg (5 mL) PO Q4H PRN cough 02/03/25 #118 mL prednisone 20 mg tablet 20 mg PO BID #10 tabs 02/03/25 Allergies Allergy/AdvReac Type Severity Reaction Status Date / Time No Known Allergies Allergy Verified 02/03/25 14:50 Review of Systems Review of Systems: All other systems are reviewed and are negative Constitutional: Reports as per HPI and Reports no additional constitutional complaints Eyes: Reports as per HPI and Reports no additional eye complaints Reports system reviewed and no additional complaints, except as documented Cardiovascular: Reports as per HPI and Reports no additional cardiovascular complaints Respiratory: Reports as per HPI and Reports no additional respiratory complaints Gastrointestinal: Reports as per HPI and Reports no additional gastrointestinal complaints Genitourinary: Reports no additional female genitourinary complaints Musculoskeletal: Reports no additional musculoskeletal complaints Skin/Breast: Reports system reviewed and no additional complaints, except as docu Psychiatric: Reports no additional psychiatric complaints Endocrine: Reports no additional endocrine complaints Hematologic/Lymphatic: Reports no additional hematologic/lymphatic complaints Allergic/Immunologic: Reports no additional allergic/immunologic complaints Reports system reviewed and no additional complaints, except as documented and Reports Abnormal speech present PMFSH Past Medical History Medical History Gout Asthma JOLANTA (obstructive sleep apnea) Pulmonary nodule High cholesterol Surgical History No pertinent past surgical history Social History Social History Are you a primary career guidance technician to a significant other at home: No Do you presently have visiting nurse or other home services: No Alcohol intake: unknown Patient Tobacco Use Status: Former Tobacco user Tobacco use type: Cigarette Cigarette Packs Per Day: 0.5 Years Smoked: 4 Advance Directives: No Advance Directives Information Provided: Yes Physical Exam ED Vital Signs: Vital Signs - 24 hr 02/03/25 14:46 02/03/25 18:29 Temperature 98.3 F 97.9 F Pulse Rate 106 H 86 Respiratory Rate 24 H 18 Blood Pressure 152/85 H 135/96 H Pulse Oximetry 93 97 Oxygen Delivery Method Room Air Room Air BMI result Body Mass Index 33.9 Vital signs have been reviewed and appear to be correct. Blood pressure elevated. Heart rate normal. Respiratory rate normal. Temperature normal. Oxygen saturation normal. Appearance: Alert. Oriented X3. No acute distress. Head: Normal external exam. Normocephalic. Atraumatic. No Ewing signs noted. No raccoon eyes noted Eyes: PERRLA. EOMI. Conjunctiva and sclera normal. Eyelids normal. ENT: TM's Normal. Pharynx normal. Uvula midline. Moist mucous membranes. No trismus noted. No drooling noted. No muffled voice noted. Neck: Normal inspection. Neck supple. FROM. No adenopathy. Thyroid Normal. No meningeal signs. No neck mass noted. CVS: Normal heart rate and rhythm. Heart sound normal. No murmurs noted. Pulses normal throughout. Respiratory: No respiratory distress. Painless inspiration. Mild diffuse expiratory wheezing with prolonged expiration, Chest nontender. No accessory muscle usage noted or decreased air movement noted. Abdomen: Soft and nontender. Bowel sounds normal in all 4 quadrants. No distention noted. No organomegaly noted. No visible injury noted. Back: No CVA tenderness. Full range of motion noted. Skin: Skin warm and dry. Normal skin color. Normal skin turgor. No rashes/lesions/lacerations noted. Extremities: No lower extremity edema. Extremities exhibit normal range of motion. Extremities nontender. Neuro: Oriented X 3. Cranial nerve exam: II-XII are grossly intact No motor deficit. No sensory deficit. Reflexes normal. Course Course Course Narrative: Rapid medical examination performed in triage by Melani Harvey PA-C: Patient is a 49 year old assigned male at presenting to the emergency department with a cough. Detailed physical exam and review of systems are deferred to the golf course starter. Labs, imaging, swabs ordered. Patient placed back in the waiting room pending room availability and results. Reevaluation(s) Reevaluation #1: 49-year-old male came in with upper respiratory symptoms and night sweat, patient is not immunocompromise with no exposure to TB case recently however will consider testing for TB. Start on Z-Donovan, albuterol, and prednisone x5 days with follow-up with PCP. Time: 19:28 Medical Decision Making Differential Diagnosis Differential Diagnoses: The differential diagnosis associated with the presentation includes ( Pneumonia, pneumothorax, viral pneumonia, bronchitis, TB, electrolyte derangement, severe anemia.) Admission/Observation Consideration of admission/observation: Escalation of care including admission/observation considered Lab Data MDM Lab Attestation statement: I reviewed the patient's lab results. 02/03/25 14:54 02/03/25 14:54 Labs: Lab Results 02/03/25 Range/Units 14:54 WBC 13.4 H (4.8-10.8) X10*3/uL RBC 4.97 (4.60-5.80) X10*6/uL Hgb 15.8 (14.0-18.0) g/dl Hct 44.8 (42.0-52.0) % MCV 90.1 (80.0-98.0) fL MCH 31.8 (27.0-33.0) pg MCHC 35.3 (31.0-36.0) g/dl RDW 11.9 (11.0-16.0) % Plt Count 404 H (160-400) X10*3/uL MPV 9.9 (9.4-12.4) fL Immature Gran % (Auto) 1.9 H (0.0-0.4) % Neut % (Auto) 70.6 (45-73) % Lymph % (Auto) 17.6 L (20-40) % [place] % (Auto) 8.2 (2-11) % Eos % (Auto) 1.3 (0-4) % Baso % (Auto) 0.4 (0-2) % Lymph # (Auto) 2.4 (1.2-4.9) X10*3/uL [place] # (Auto) 1.1 (0.1-1.2) X10*3/uL Eos # (Auto) 0.2 (0.0-0.4) X10*3/uL Baso # (Auto) 0.1 (0.0-0.2) X10*3/uL Abs Immat Gran (auto) 0.25 H (0.00-0.03) X10*3/uL Absolute Neuts (auto) 9.5 H (2.0-8.3) x10*3/uL Absolute Nucleated RBC 0.000 (0.0-0.012) X10*3/uL Nucleated RBC % (auto) 0.0 (0.0-0.2) /100WBC Sodium 135 (135-145) mmol/L Potassium 4.1 (3.3-5.1) mmol/L Chloride 102 (96-108) mmol/L Carbon Dioxide 23 (22-29) mmol/L Anion Gap 14 (12-20) BUN 13 (9-16) mg/dL Creatinine 0.85 (0.5-1.4) mg/dL Estim Creat Clear Calc 127.4 Estimated GFR > 60 Random Glucose 111 (60-115) mg/dL Calcium 9.7 (8.4-10.2) mg/dL Total Bilirubin 0.7 (0.0-1.0) mg/dL AST 40 H (5-37) U/L ALT 85 H (0-40) U/L Alkaline Phosphatase 69 (39-117) U/L Total Protein 7.7 (6.5-8.0) g/dL Albumin 4.8 (3.5-5.0) g/dL COVID-19 (JM) Negative (Negative) COVID-19 Clin Com See Note Influenza Type A (JOHN) Negative (Negative) Influenza Type B (JOHN) Negative (Negative) Influenza A & B Note See Note Independent Interpretation I performed an independent interpretation of an: Plain X-Ray ( Chest x-ray: No acute intrathoracic pathology.) Radiology Impression Discussion of test interpretation with radiology: I have reviewed the radiologist's reading. Discharge Plan Discharge Clinical Impression: Bronchitis, Cough Patient Disposition: Home, Self-Care Instructions: Acute Bronchitis (ED) Prescriptions: New azithromycin [Zithromax Z-Donovan] 250 mg tablet See Rx Instructions .ROUTE .COMPLEX Qty: 6 0RF Rx Instructions: For 250 mg dose pack: take 500 mg today (day 1), then 250 mg for 4 days (days 2-5) prednisone 20 mg tablet 20 mg PO BID Qty: 10 0RF albuterol sulfate [Ventolin HFA] 90 mcg/actuation HFA aerosol inhaler 2 puff inhalation Q6H PRN (Reason: shortness of breath or wheezing) Qty: 6.7 0RF guaifenesin 200 mg/5 mL liquid 200 mg PO Q4H PRN (Reason: cough) Qty: 118 0RF Print Language: Mauritanian
[2025-02-03 15:00] LABS: MANUAL DIFF FLAG NO
[2025-02-03 15:04] LABS: Hematocrit 44.8 % (42.0-52.0); Hemoglobin 15.8 g/dl (14.0-18.0); Imm Gran Abs Auto 0.25 X10*3/uL (0.00-0.03); Imm Gran Pct Auto 1.9 % (0.0-0.4); Lymphocytes Absolute Auto 2.4 X10*3/uL (1.2-4.9); Mean Corpuscular HGB Conc 35.3 g/dl (31.0-36.0); Mean Corpuscular Hemoglobin 31.8 pg (27.0-33.0); Mean Corpuscular Volume 90.1 fL (80.0-98.0); NRBC Abs Auto 0.000 X10*3/uL (0.0-0.012); NRBC Pct Auto 0.0 /100WBC (0.0-0.2); Platelet Count 404 X10*3/uL (160-400); Red Blood Count 4.97 X10*6/uL (4.60-5.80); White Blood Count 13.4 X10*3/uL (4.8-10.8)
[2025-02-03 15:21] LABS: Alanine Aminotransferase 85 U/L (0-40); Albumin Level 4.8 g/dL (3.5-5.0); Alkaline Phosphatase 69 U/L (39-117); Anion Gap 14 (12-20); Aspartate Amino Transferase 40 U/L (5-37); Blood Urea Nitrogen 13 mg/dL (9-16); Calcium 9.7 mg/dL (8.4-10.2); Carbon Dioxide 23 mmol/L (22-29); Chloride 102 mmol/L (96-108); Creatinine Clr Calc Pharmacy 127.4; Estimated Glomerular Filt Rate > 60; IDNOW Serial# 152EDE1D; IDNOW Serial# 16C4AD1C; Influenza B2 Negative (Negative); Potassium 4.1 mmol/L (3.3-5.1); Sodium 135 mmol/L (135-145); Total Protein 7.7 g/dL (6.5-8.0)
[2025-02-03 15:22] LABS: COVID-19 Test Negative (Negative)
--- OUTSIDE RECORDS SUMMARY | 2025-02-03 18:16 | XMS_ITS | Encounter Summary ---
Author Organization [facility] Address [address] [place] [id number] Phone Care Team Providers Care Deputy Prosecuting Attorney Name Role Phone Bhumika Melendez ACTIVITIES LEADER Primary Care Provider + Encounter Details Date Type Department Care Team (Late st Contact Info) Description 03/02/2024 Procedure Pass [facility], Ct Scan - [address] [address] Social History Tobacco Use Types Packs/Day Years Used Date Smoking Tobacco: Former Cigarettes Smokeless Tobacco: Never Alcohol Use Standard Drinks/Week Comments Yes 0 (1 standard drink = 0.6 oz pur e alcohol) rare Education Answer Date Recorded Are you interested in more education? Not on mela e 03/02/2024 Are you concerned about learning? Not on file 03/02/2024 No 03/02/2024 No 03/02/2024 Food Answer Date Recorded Within the past 6 months we worried whether our food would run out before we got money to buy more. Never True 03/02/2024 Within the past 6 months the food we bought just didn't last and we didn't have enough money to get more. Never True Residential Stability Answer Date Recor ded What is your housing situation today? I am stayi ng with others 03/02/2024 How many times have you move d in the past 12 months? One time 03/02/2024 Paying for Meds Answer Date Recorded Do you have trouble paying for medicines? No 03/02/2024 Paying Utility Bills Answer Date Record ed Do you have trouble paying your heating or elect ricity bill? No 03/02/2024 Transportation Answer Date Recorded Has the lack of transportati on kept you from medical appointments or from getting medications? No 03/02/2024 Digital Access Answer Date Recorded No 03/02/2024 Yes 03/02/2024 Do you have reliable internet access at home? Ye s 03/02/2024 Do you have a device (e.g., phone, tablet, computer) with a working camera? Yes 03/02/2024 Intimate Partner Violence Answer Date R ecorded Are you denied basic needs s uch as food, clothing, or medical care? No 03/02/2024 In the past 12 months have y ou been in a relationship with a person who hurts, threatens, or tries to control you? No 03/02/2024 Are you denied basic needs s uch as food, clothing, or medical care? No 03/02/2024 In the past 12 months have y ou been in a relationship with a person who hurts, threatens, or tries to control you? No 03/02/2024 Sex and Gender Information Value Date Recorded Sex Assigned at Male 03/02/2024 1:57 PM EST Legal Sex Male 1:46 PM EST Gender Identity Male 03/02/2024 1:57 PM EST Sexual Orientation Straight 03/02/2024 1: 57 PM EST documented as of this encounter Functional Status * Calculated C-SSRS Risk Score (Lifetime/Recent) Answer Date of Assessment Author No Risk Indicated 03/02/2024 10:37 PM EST Eusebia Crump RN * [place] Suicide Severity Rating Scale (Screener/Recent Self-Report) Question Answer Date of Assessment Author 1. Wish to be (Past 1 Month) No 03/02/2024 10:37 PM EST Eusebia Ge RN 2. Non-Specific Active Suici kindra Thoughts (Past 1 Month) No 03/02/2024 10:37 PM EST Aranza Ge RN 6. Suicidal Behavior (Lifetime) No 10:37 PM EST Eusebia Ge RN documented as of this encounter Plan of Treatment Not on file documented as of this encounter Visit Diagnoses Not on filedocumented in this encounter Additional Health Concerns Infection Onset Date Last Indicated Resolved Time CoV-Risk Comment:Per note documentation 03/02/2024 03/02/2024 4 7:27 AM EST documented as of this encounter Care Teams Deputy Prosecuting Attorney Relationship Specialty Start Date End Date Bhumika Melendez NP [address] [place] [id number] PCP - General Nurse Practitioner 03/02/24 documented as of this encounter Additional Source Comments The information contained in this document represents components of the legal health record. It is not the complete legal health record.[facility]
--- OUTSIDE RECORDS SUMMARY | 2025-02-03 18:16 | XMS_ITS | Clinical Summary ---
Author Organization [facility] Address [address] [place] [id number] Phone Care Team Providers Care Flatbed Owner Operator Name Role Phone Manishmarisol Bhumika Chiragcorina CELL TESTER Primary Care Provider + Allergies No known active allergies Medications No known medications Active Problems Problem Noted Date Diagnosed Date Partial small bowel obstruction 03/02/2024 Assessment & Plan (03/03/2024 10:21 AM EST): CT abdomen pelvis revealed partial small bowel obstruction with a single left mid abdominal transition point to decompressed ileum, no CT findings associated bowel compromise. Nausea and vomiting controlled with Zofran in the ER, no further episodes at this time Unclear etiology of bowel obstruction at this time, no prior surgical history, no family history of malignancy. Surgery consulted, will follow up recommendations Patient continues to be n.p.o. except medications, continuing IVF Monitoring electrolytes and repleting as necessary Will continue serial abdominal exams Patient encouraged to ambulate Assessment & Plan (03/02/2024 8:09 PM EST): -CT abdomen pelvis revealed partial small bowel obstruction with a single left mid abdominal transition point to decompressed ileum, no CT findings associated bowel compromise. -Nausea and vomiting controlled with Zofran in the ER, no further episodes at this time -Unclear etiology of bowel obstruction at this time, no prior surgical history, no family history of malignancy. -Surgery consulted recs appreciated Plan: N.p.o. except medications IVF hydration Serial abdominal exams Surgery consulted further recommendations pending Can consider NG tube if vomiting reoccurs Family History Medical History Relation Comments No Known Problems Brother No Known Problems Father No Known Problems Mother Relation Status Comments Brother Father Mother Social History Tobacco Use Types Packs/Day Years Used Date Smoking Tobacco: Former Cigarettes S tarted: 04/03/2023 Smokeless Tobacco: Never Alcohol Use Standard Drinks/Week [...] Orientation Straight 03/02/2024 1: 57 PM EST Last Filed Vital Signs Vital Sign Reading Time Taken Comments Blood Pressure 107/70 03/04/2024 7:40 AM EST Pulse 87 03/04/2024 7:40 AM EST Temperature 36 C (96.8 F) 03/04/2024 7:40 AM EST Respiratory Rate 19 03/04/2024 7:40 AM EST Oxygen Saturation 96% 03/04/2024 7:40 AM EST Inhaled Oxygen Concentration - - Weight 96.5 kg (212 lb 12.8 oz) 03/04/2024 6:10 AM EST Height 177.8 cm (5' 10 ) 03/02/2024 9:11 PM EST Body Mass Index 30.53 03/02/2024 9:11 PM EST Plan of Treatment Health Maintenance Due Date Last Done Comments DEPRESSION SCREENING 1986 SMOKING Hx and SMOKELESS TOB ACCO SCREENING 1987 HEPATITIS C SCREENING 1992 HIV ONE-TIME SCREENING (18-6 5 YEARS) 1992 COLOGUARD 2019 COLONOSCOPY 2019 COLORECTAL CANCER SCREENING 2019 FIT TEST 2019 FOBT 2019 SIGMOIDOSCOPY 2019 VIRTUAL COLONOSCOPY 2019 PNEUMOCOCCAL VACCINES (50+ y ears) (1 of 1 - PCV) 2024 ZOSTER VACCINES (1 of 2) 2024 INFLUENZA VACCINE (#1) 2024 COVID-19 VACCINE ( - 2024-2 6 season) 2024 SCREENING FOR DIABETES 03/04/2027 03/04/2024 LIPID PANEL 05/24/2028 05/24/2023 Adult Td,Tdap Booster 09/05/2033 09/06/2023 RSV VACCINE (1 - 1-dose 75+ series) 2049 HEPATITIS A VACCINES Aged Out No long er eligible based on patient's age to complete this topic HIB VACCINES Aged Out No longer eligi ble based on patient's age to complete this topic MENINGOCOCCAL VACCINES (ACWY) Aged Out No longer eligible based on patient's age to complete this topic MENINGOCOCCAL VACCINES (B) Aged Out N o longer eligible based on patient's age to complete this topic Medical Devices Not on file Insurance [facility] NON NSPG PCP [employer] NET PARTIAL [facility] NON NSPG PCP [employer] NET PARTIAL [address] [address] NON NSPG PCP [employer] Member Subscriber Plan / Payer (Ef fective 2023-Present) Name:Kateryna Raoaristo Relation to Subscriber:Self Name:JalenSarath Payer ID:[id number] Type:[place] Address: [address] PARTIAL [facility] NON NSPG PCP [employer] NET PARTIAL NON NSPG PCP [employer] NET PARTIAL [place] [address] NON NSPG PCP [employer] [address] SAFETY NET PARTIAL Advance Directives For more information, please contact: [phone] (9AM - 5PM [facility], Monday-Monday) * Full Code (Latest Code Status on File) Date Activated Date Inactivated Comments 03/02/2024 9:38 PM Question Answer Comments Code Status Confirmed With: Patient Code Status Communicated To: Inpatient Attending Care Teams Flatbed Owner Operator Relationship Specialty Start Date End Date Bhumika Melendez NP [address] [place] [phone] PCP - General Nurse Practitioner 03/02/24 Additional Source Comments The information contained in this document represents components of the legal health record. It is not the complete legal health record.[facility]
--- OUTSIDE RECORDS SUMMARY | 2025-02-03 18:16 | XMS_ITS | Clinical Summary ---
Author Organization [facility] Address [address] [place] [address] Care Team Providers Care Tallow Maker Name Role Phone Pcp, No Primary Care Provider Unavailabl e Allergies No known active allergies Medications ciprofloxacin-d exAMETHasone (CIPRODEX) 0.3-0.1 % otic suspensionIndic ations:Right otitis externa Administer 4 drops to the right ear 2 (two) times a day. 7.5 mL Active Active Problems Problem Noted Date Diagnosed Date Mastoiditis of right side 10/20/2024 Assessment & Plan (10/20/2024 11:16 PM EDT): ENT recs appreciated, recommendation to use Anti-Pseudomonas antibiotic Will do cefepime cefepime for 2 days, after patient transition to Levaquin Ciprodex 4 drops twice daily R ear Follow blood culture and ear culture Follow with ENT, for now ENT does not recommend imaging Follow A1c Social History Tobacco Use Types Packs/Day Years Used Date Smoking Tobacco: Never Assessed Sex and Gender Information Value Date Recorded Sex Assigned at Male 10/20/2024 7:28 PM EDT Legal Sex Male 5:14 PM EDT Gender Identity Male 10/20/2024 7:25 PM EDT Sexual Orientation Heterosexual (straight) 10/20 7:28 PM EDT Last Filed Vital Signs Vital Sign Reading Time Taken Comments Blood Pressure 118/76 10/21/2024 8:34 AM EDT Pulse 68 10/21/2024 8:34 AM EDT Temperature 35.5 C (95.9 F) 10/21/2024 7:30 AM EDT Respiratory Rate 18 10/21/2024 8:34 AM EDT Oxygen Saturation 97% 10/21/2024 8:34 AM EDT Inhaled Oxygen Concentration - - Weight 107 kg (235 lb) 10/20/2024 11:43 PM EDT Height 177.8 cm (5' 10 ) 10/20/2024 11:43 PM EDT Body Mass Index 33.72 10/20/2024 11:43 PM EDT Plan of Treatment Health Maintenance Due Date Last Done Comments Hepatitis C Virus Screening 1974 DTaP/Tdap/Td Vaccines (1 - Tdap) 1993 Hepatitis B Vaccines (1 of 3 - 19+ 3-dose series) 1993 Colonoscopy 2019 Pneumococcal Vaccines 50+ (1 of 1 - PCV) 2024 Zoster (Shingles) Vaccine (1 of 2) 2024 Influenza Vaccine 11/01/2024 12/13/2023, 01/26/2023 RSV Vaccine 50 years and old er and Patients (1 - 1-dose 75+ series) 2049 HIV Screening Completed 04/15/2023 COVID-19 Vaccine Completed 01/18/2024, 04/14/2023 Advance Directives * Full Code (Latest Code Status on File) Date Activated Date Inactivated Comments 10/20/2024 10:54 PM Question Answer Comments Decision Thoroughly Discussed with: Patient Care Teams Tallow Maker Relationship Specialty Start Date End Date Pcp, No PCP - General General Medicine 10/20/24
--- OUTSIDE RECORDS SUMMARY | 2025-02-03 18:16 | XMS_ITS ---
Author Name [facility] Organization Unknown Results Test Name/Text Value Interpretation Date Range Source Hgb A1c MFr Bld 6.0 % Above high normal 10/21/2024 - 5.7 H[facility]CT Est. average glucose Bld gHb Est-mCnc 126.0 mg/dL 10/21/2024 H[facility]CT PMV Bld Auto 10.7 fL 10/21/2024 7.5 - 12.5 H[facility] Hgb Bld-mCnc 13.8 g/dL 10/21/2024 13 - 17.7 HHCCT MCHC RBC Auto-mCnc 35.0 g/dL 10/21/2024 30 - 36 H[facility]CT RDW RBC Auto-Rto 11.9 % 10/21/2024 11.5 - 14.5 H[facility]CT Platelet num Bld Auto 278.0 Thou/uL 10/21/2024 150 - 450 HHCCT Hct VFr Bld Auto 39.4 % 10/21/2024 39 - 54 HH CCT WBC num Bld Auto 13.3 Thou/uL Above high normal 10/21/2024 4 - 11 HHCCT MCH RBC Qn Auto 31.6 pg Above high normal 10/21/2024 27 - 31 H[facility]CT MCV RBC Auto 90.0 fL 10/21/2024 80 - 100 H[facility]CT RBC num Bld Auto 4.37 Mil/uL Below low normal 10/21/2024 4.5 - 6.2 HHCCT Calcium SerPl-mCnc 8.7 mg/dL 10/21/2024 8.7 - 10.5 HHCCT Potassium SerPl-sCnc 3.7 mmol/L 10/21/2024 3.4 - 5 .3 HHCCT Glucose SerPl-mCnc 119.0 mg/dL Above high normal 10/21/2024 65 - 99 HHCCT Chloride SerPl-sCnc 101.0 mmol/L 10/21/2024 98 - 1 07 HHCCT Anion Gap Bld-sCnc 13.0 10/21/2024 7 - 17 HHCCT BUN/Creat SerPl 16.0 Ratio 10/21/2024 10 - 25 HH CCT CO2 SerPl-sCnc 23.0 mmol/L 10/21/2024 22 - 33 HH CCT BUN SerPl-mCnc 14.0 mg/dL 10/21/2024 8 - [address] Sodium SerPl-sCnc 137.0 mmol/L 10/21/2024 136 - 14 5 HHCCT Creat SerPl-mCnc 0.9 mg/dL 10/21/2024 0.5 - 1.3 HH CCT GFR/BSA.pred SerPlBld SIO-WVH-WxRUjs >90.0 10/21/2024 59 - HHCCT Lactate SerPl-sCnc 1.2 mmol/L 10/21/2024 0.5 - 1.9 HHCCT ALP SerPl-cCnc 65.0 U/L 10/21/2024 45 - 128 HHCC T BUN SerPl-mCnc 11.0 mg/dL 10/21/2024 8 - [address] Bilirub SerPl-mCnc 1.3 mg/dL Above high normal 10/21/2024 0. 2 - 1 HHCCT Anion Gap Bld-sCnc 12.0 10/21/2024 7 - 17 HHCCT Chloride SerPl-sCnc 103.0 mmol/L 10/21/2024 98 - 1 07 HHCCT Potassium SerPl-sCnc 3.9 mmol/L 10/21/2024 3.4 - 5 .3 HHCCT BUN/Creat SerPl 14.0 Ratio 10/21/2024 10 - 25 HH CCT CO2 SerPl-sCnc 23.0 mmol/L 10/21/2024 22 - 33 HH CCT Calcium SerPl-mCnc 8.8 mg/dL 10/21/2024 8.7 - 10.5 HHCCT Sodium SerPl-sCnc 138.0 mmol/L 10/21/2024 136 - 14 5 HHCCT Prot SerPl-mCnc 7.0 g/dL 10/21/2024 6.3 - 8.[address] AST SerPl-cCnc 18.0 U/L 10/21/2024 10 - 55 HHCC T GFR/BSA.pred SerPlBld ZGN-AFK-CcCFva >90.0 10/21/2024 59 - HHCCT Albumin SerPl-mCnc 4.1 g/dL 10/21/2024 3.5 - 5 HHCCT Creat SerPl-mCnc 0.8 mg/dL 10/21/2024 0.5 - 1.3 HH CCT ALT SerPl-cCnc 42.0 U/L 10/21/2024 10 - 55 HHCC T Albumin/Glob SerPl 1.4 Ratio 10/21/2024 1 - 3 HHCCT Globulin Ser Calc-mCnc 2.9 g/dL 10/21/2024 1.5 - 3.9 HHCCT Glucose SerPl-mCnc 101.0 mg/dL Above high normal 10/21/2024 65 - 99 HHCCT Lactate SerPl-sCnc 1.0 mmol/L 10/21/2024 0.5 - 1.9 HHCCT Monocytes num Bld Auto 1.22 Thou/uL 10/21/2024 0.2 - 1.5 HHCCT MCV RBC Auto 90.0 fL 10/21/2024 80 - 100 HHCCT Eosinophil/leuk NFr Bld Auto 1.5 % 10/21/2024 HHCCT Hgb Bld-mCnc 13.8 g/dL 10/21/2024 13 - 17.7 HHCCT Monocytes/leuk NFr Bld Auto 9.0 % 10/21/2024 HHCCT Basophils num Bld Auto 0.03 Thou/uL 10/21/2024 0 - 0.2 HHCCT Platelet num Bld Auto 263.0 Thou/uL 10/21/2024 150 - 450 HHCCT MCH RBC Qn Auto 30.5 pg 10/21/2024 27 - [address] Imm Granulocytes/leuk NFr Bld Auto 0.6 % 10/21/2024 HHCCT Neutrophils num Bld Auto 9.67 Thou/uL Above high normal 10/21/2024 2 - 7.5 HHCCT Neutrophils/leuk NFr Bld Auto 71.4 % 10/21/2024 HHCCT RBC num Bld Auto 4.52 Mil/uL 10/21/2024 4.5 - 6.2 HHCCT PMV Bld Auto 10.4 fL 10/21/2024 7.5 - 12.5 HHCCT Hct VFr Bld Auto 40.5 % 10/21/2024 39 - 54 HH CCT WBC num Bld Auto 13.6 Thou/uL Above high normal 10/21/2024 4 - 11 HHCCT Lymphocytes num Bld Auto 2.35 Thou/uL 10/21/2024 1.5 - 4.5 HHCCT Imm Granulocytes num Bld Auto 0.08 Thou/uL 10/21/2024 0 - 0.1 HHCCT Lymphocytes/leuk NFr Bld Auto 17.3 % 10/21/2024 HHCCT Eosinophil num Bld Auto 0.2 Thou/uL 10/21/2024 0 - 0.7 HHCCT Basophils/leuk NFr Bld Auto 0.2 % 10/21/2024 HHCCT MCHC RBC Auto-mCnc 34.1 g/dL 10/21/2024 30 - 36 HHCCT RDW RBC Auto-Rto 11.9 % 10/21/2024 11.5 - 14.5 HHCCT Encounters Encounter Type Encounter Reason Primary Diagnosis Location Date Inpatient Unspecified otitis externa, right ear Unspecified otitis externa, right ear [facility] 10/20/2024 Care Team Organization Name Specialty Phone Email Start Date End Da te [facility] 10/21/2024 11/18/2024 [facility] NO PCP Primary Care 10/20/2024 [facility] 10/20/2024
[2025-02-03 18:29] VITALS: BP 135/96; PULSE 86; RESP 18; TEMP 36.6; O2SAT 97
[2025-02-03 19:35] VITALS: BP 135/96; PULSE 86; RESP 18; TEMP 36.6; O2SAT 97
--- NOTE | 2025-02-03 20:03 | PC.NURSE ---
Lab called saying TB test drawn in wrong tube; recollect placed. Pt discharged prior to this, pt called voicemail left instructed to come back for re-draw. 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
== END 2025-02-03 19:39 | disposition home or self-care (01) ==
PROVIDERS: Physician Assistant Medical; Emergency Provider Emergency Medicine; PCP Nurse Practitioner
DX: J20.9 Acute bronchitis, unspecified (principal); R05.9 Cough, unspecified; J45.909 Unspecified asthma, uncomplicated; Z03.818 Encounter for observation for suspected exposure to other biological agents ruled out; Z87.891 Personal history of nicotine dependence
CPT/HCPCS: 71046; 80053; 85025; 87502; 87635; 99283

== ENCOUNTER → 2025-02-03 14:46 | Outpatient (BNV) | payer MEDICAID, SELFPAY | PROVIDERS: PCP Nurse Practitioner; Visit Provider Radiology Diagnostic Radiology | DX: R05.9 Cough, unspecified (principal) | CPT/HCPCS: 71046 ==

== ENCOUNTER 2025-03-31 08:19 | Emergency (ER) | payer OTHER, SELFPAY ==
[2025-03-31 08:40] VITALS: BP 144/99; PULSE 88; RESP 18; TEMP 36.3; O2SAT 94; BMI 35.0
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
--- OUTSIDE RECORDS SUMMARY | 2025-03-31 08:59 | XMS_ITS | Clinical Summary ---
Author Organization [employer] Address [address] [place] [address] [address] [place] [address] Care Team Providers Care Manager Athletics Name Role Phone Bhumika Melendez NP Primary Care Provider [phone] Allergies No known active allergies Medications cholecalciferol (Vitamin D-3) 10 MCG (400 UNIT) tablet Take 1 tablet by mouth Once daily. Active Blood Pressure Monitor kitIndications:El evated BP without diagnosis of hypertension 1 kit Once per day. 1 kit 08/02/2023 Active Active Problems Problem Noted Date Diagnosed Date Internal hemorrhoid 02/05/2025 Overview (02/05/2025): Noted on colonoscopy completed 05/30/24 S/P colon polypectomy 02/05/2025 Overview (02/05/2025): Polyp removed from ascending and sigmoid colons Tubular adenoma of colon 02/05/2025 Overview (02/05/2025): Colonoscopy completed 05/30/[address] Maddox with polypectomy of ascending and sigmoid colons. Recommend repeat 3-4 years approx 2027 Prediabetes 01/11/2025 Assessment & Plan (01/11/2025 5:51 PM EDT): -Recent A1c of 6% indicating progression to prediabetes, increased from 4.9% two years ago. -Patient reports increased appetite especially at night and weight gain. This can also be due to situational depression. Experiencing polydipsia. -Patient to engage in lifestyle and dietary changes -Dietary Recommendations: Fruits, vegetables, whole grains, protein foods, and fat-free or low-fat dairy products are healthy choices. Eat different types of protein foods in your diet. This can include seafood, lean meats, poultry, beans, peas, lentils, nuts, seeds, soy products, and eggs. Limit foods and beverages higher in added sugars, saturated fat, and sodium. Exercise Recommendations: At least 150 minutes of moderate-intensity physical activity per week, or an equivalent combination of moderate- and vigorous-intensity activity Advanced periodontitis 03/20/2024 Lumbar sprain 01/18/2024 Assessment [...] without diagnosis of hypertension Assessment & Plan (08/11/2024 5:52 AM EDT): -initial slightly elevated w/ repeat WNL -advised low salt/low fat diet, routine daily exercise, and stress management -continue randomized home monitoring and report with readings persistently over 130/80 mmHg Assessment & Plan (12/13/2023 12:11 PM EDT): [...] -patient advised to upload home reading into Chat[employer] for my review -if persistently elevated home [...] persistent asthma without complication Assessment & Plan (08/11/2024 5:50 AM EDT): -patient reports symptom resolution -continued monitoring advised Assessment & Plan (10/23/2023 8:38 AM EDT): [...] (obstructive sleep apnea) 07/19/2023 Assessment & Plan (08/11/2024 5:49 AM EDT): -stable with nightly use of CPAP machine Assessment & Plan (12/13/2023 12:14 PM EDT): [...] Obesity (BMI 30-39.9) 06/22/2023 Assessment & Plan (08/11/2024 5:52 AM EDT): Dietary Recommendations: Fruits, vegetables, whole grains, protein foods, and fat-free or low-fat dairy products are healthy choices. Eat different types of protein foods in your diet. This can include seafood, lean meats, poultry, beans, peas, lentils, nuts, seeds, soy products, and eggs. Limit foods and beverages higher in added sugars, saturated fat, and sodium. Exercise Recommendations: At least 150 minutes of moderate-intensity physical activity per week, or an equivalent combination of moderate- and vigorous-intensity activity Assessment & Plan (12/13/2023 12:13 PM EDT): [...] Encounters Date Type Department Care Team Description 02/27/2025 Results Follow-Up [facility] [address] [place] [phone] Bhumika Melendez NP CBC auto differential, Influenza A B2 ID NOW (Dasilva), Comprehensive Metabolic Panel, Additional followed-up results: 2 02/05/2025 Telephone [facility] [address] [place] [address] Bhumika Melendez NP chart prep 02/03/2025 Orders Only GENERIC EXTERNAL DATA DEPARTMENT Provider, Generic External Data 01/01/2025 8:00 AM EDT Office Visit [facility] ADULT DENTAL [address] [place] [address] WarrenFabianoChela Dental calculus (Primary Dx); Periodontal disease 12/30/2024 10:00 AM EDT Office Visit [facility] MEDICINE [address] [place] [address] Bhumika Melendez NP Excessive sweating (Primary Dx); Change in consistency of stool; Positive screening for depression on 9-item Patient Health Questionnaire (PHQ-9); Brain fog; Palpitations; Situational depression; Prediabetes 12/30/2024 Travel from Last 3 Months Immunizations Immunization Administration Dates Next Due Hep B, adult [...] Answer Date Recorded Patient Health Questionnaire-9 Score 11 12/30/2024 Patient Health Questionnaire-9 Score 11 12/30/2024 Last PHQ-9: Questionnaire Data Not on file 0 12/30/2024 Housing Stability Answer Date Recorded What is your housing situation today? I do not have housing (Staying with others, in a hotel, in a detention, living outside on the street, on a [...] Answer Date Recorded Patient Health Questionnaire-2 Score 3 12/30/2024 Internet Access Answer Date Recorded Internet Access [...] Sign Reading Time Taken Comments Blood Pressure 128/76 01/01/2025 8:00 AM EDT Pulse 79 12/30/2024 10:03 AM EDT Temperature 36.1 C (96.9 F) 12/30/2024 10:03 AM EDT Respiratory Rate 16 12/30/2024 10:03 AM EDT Oxygen Saturation 97% 12/30/2024 10:03 AM EDT Inhaled Oxygen Concentration - - Weight 110 kg (241 lb 12.8 oz) 12/30/2024 10:03 AM EDT Height 177.8 cm (5' 10 ) 12/30/2024 10:03 AM EDT Body Mass Index 34.69 12/30/2024 10:03 AM EDT Plan of Treatment Upcoming Encounters Date Type Department Care Team (Late st Contact Info) Description 07/03/2025 8:00 AM EDT Office Visit [facility] ADULT DENTAL [address] [place] [address] Fabiano Kelleyaris [address] [place] [address] Health Maintenance Due Date Last Done Comments CT Colonography 1974 FIT DNA/Cologuard 1974 FIT 1974 FOBT 1975 Sigmoidoscopy 1974 Family Planning (PISQ) 1989 Diabetes: Hemoglobin A1C 05/11/2023 05/11/2022 RSV Patients and Patients Aged 60 years or older (1 - Risk 50-74 years 1-dose series) 2024 Zoster Vaccines (1 of 2) 2024 COVID-19 Vaccine ( season) 2024 01/18/2024, 04/14/2023, 09/11/2020, Additional history exists Influenza Vaccine (#1) 2024 12/13/2023, 2022 Dental Oral Exam 12/28/2024 06/26/2024, , 04/19/2022 Alcohol/Substance Use Screening 05/29/2025 05/29/2024 SDOH Screening 05/29/2025 05/29/2024 Dental X-Ray: Bitewings 06/27/2025 06/27/19 25, 09/28/2023, 04/19/2022 Depression Monitoring 06/29/2025 12/30/2024, 025 Dental Prophylaxis 07/03/2025 01/01/2025, 0 06/26/2024, 03/20/2024, Additional history exists Disability Screening 12/30/2025 12/30/2024 Tobacco Screening 01/01/2026 01/01/2025 Colonoscopy 05/24/2027 Colorectal Cancer Screening 05/24/2027 Dental X-Ray: Full Mouth 06/28/2027 06/26/2024, 12/0 09/2020 Lipid Panel 05/24/2028 05/24/2023, 04/15/2023 DTaP/Tdap/Td Vaccines (2 - Td or Tdap) 09/05/2033 09/06/2023 HIV Screening Completed 04/15/2023 Hepatitis C Screening Completed 04/15/2023 Pneumococcal Vaccine: 50+ Years Completed 07/19/2023 Hepatitis B Vaccines Completed 01/18/2024, 08/18/2023, 07/19/2023 [...] patient's age to complete this topic Meningococcal B Vaccine Aged Out No l onger eligible based on patient's age to complete [...] Name Priority Date/Time Associated Diagnosis Comments XR CHEST 2 VIEWS Routine 02/03/2025 3:15 PM EST COVID-19 ID NOW ([email or web address]) Routine 02/03/2025 2:54 PM EST COMPREHENSIVE METABOLIC PANEL Routine 02/03/2025 2:54 PM EST CBC WITH AUTO DIFFERENTIAL Routine 02/03/2025 2:54 PM EST INFLUENZA A B2 ID NOW (DASILVA) Routine 02/03/2025 2:54 PM EST VITAMIN B12/FOLATE, SERUM PANEL Routine 01/20/2025 2:15 PM EDT Brain fog CBC WITH AUTO DIFFERENTIAL Routine 01/20/2025 2:15 PM EDT Excessive sweating Palpitations TSH W/REFLEX TO FT4 Routine 01/20/2025 2 :15 PM EDT Excessive sweating Palpitations CASE PRESENTATION, DETAILED AND EXTENSIVE TREATMENT PLANNING Routine 01/01/2025 8:00 AM EDT Dental calculus Periodontal disease ORAL HYGIENE INSTRUCTIONS Routine 01/01/2025 8:00 AM EDT Dental calculus Periodontal disease PROPHYLAXIS - ADULT Routine 01/01/2025 8 :00 AM EDT Dental calculus Periodontal disease INTRAORAL - COMPLETE SERIES OF RADIOGRAPHIC IMAGES Routine 06/26/2024 9:00 AM EDT Advanced periodontitis Dental calculus PERIODIC ORAL EVALUATION - ESTABLISHED PATIENT Routine 06/26/2024 9:00 AM EDT LIPID PANEL, STANDARD Routine 05/24/2023 11:09 AM EST Pure hypertriglyceridemia HEPATITIS PANEL, GENERAL Routine 04/15/2023 10:28 AM EST Routine screening for STI (sexually transmitted infection) HIV 1/2 ANTIGEN/ANTIBODY, FOURTH GENERATION W/RFL Routine 04/15/2023 10:28 AM EST Routine screening for STI (sexually transmitted infection) HEMOGLOBIN A1C Routine 05/11/2022 2:34 PM EST from Last 3 Months or Most Recently Relevant to Health Maintenance Results * XR Chest 2 Views (02/03/2025 3:15 PM EST) Anatomical Region Laterality Modality Chest Radiographic Ame ging 02/03/2025 3:15 PM EST Narrative 02/03/2025 3:30 PM EST [address] [address] XRay Report Signed Patient: Sarath Rao MR#: [id number] 31 : 1975 Acct:[id number] Age/Sex: 49 / M ADM Date: 02/03/25 Loc: HO.ED Attending Dr: Ordering Physician: Melani Harvey Date of Service: 02/03/25 Procedure(s): XR chest 2V Accession Number(s): [id number] cc: Bhumika Melendez; Melani Harvey Reason for Exam: cough EXAMINATION: XR CHEST CLINICAL INFORMATION: cough COMPARISON: 06/21/2023. TECHNIQUE: 2 views of the chest were obtained. FINDINGS: The cardiac, hilar, and mediastinal contours are normal. The lungs are clear bilaterally. There is no pneumothorax or pleural effusion. There is no focal osseous or soft tissue abnormality. XR/XR chest 2V IMPRESSION: No active pulmonary disease. Electronically signed by: Kenroy Hewitt MD 02/03/2025 03:28 PM EST RP Dictated By: Kenroy Hewitt MD Signed By: <Electronically signed by Kenroy Hewitt MD in OV> 02/03/25 1528 DD/ 151 TD/TT: 02/03/25 152 Time Cycle Operator: Procedure Note Donotuseinterpreter, Image - 02/03/2025 [place] [address] XRay Report Signed Patient: Mil Rao#: [id number] 31 : 1975Acct:[id number] Age/Sex: 49 / MADM Date: 02/03/25 Loc: .ED Attending Dr: Ordering Physician: Melani Harvey Date of Service: 02/03/25 Procedure(s): XR chest 2V Accession Number(s): [id number] cc: Bhumika Melendez; Melani Harvey Reason for Exam: cough EXAMINATION: XR CHEST CLINICAL INFORMATION: cough COMPARISON: 06/21/2023. TECHNIQUE: 2 views of the chest were obtained. FINDINGS: The cardiac, hilar, and mediastinal contours are normal. The lungs are clear bilaterally. There is no pneumothorax or pleural effusion. There is no focal osseous or soft tissue abnormality. XR/XR chest 2V IMPRESSION: No active pulmonary disease. Electronically signed by: Kenroy Hewitt MD 02/03/2025 03:28 PM EST RP Dictated By: Kenroy Hewitt MD Signed By: <Electronically signed by Kenroy Hewitt MD in OV> 02/03/25 1528 DD/ 1515 TD/TT: 02/03/25 1521 Time Cycle Operator: [facility] External Provider IMG XR PROCEDURES Final Result * Influenza A B2 ID NOW (Dasilva) (02/03/2025 2:54 PM EST) IDNOW SERIAL# [id number] [facility] Influenza A Negative Negative [facility] Influenza B2 Negative Negative [facility] Influenza A B2 Note See Note [facility] Comment:The Dasilva ID NOW In fluenza A B2 test is used for thequalitative detection of influenza A and B from patientswith signs and symptoms of respiratory infection.Negative results do not preclude influenza virus infectionand should not be used as the sole basis for diagnosis,treatment or other patient management decisions.There is a risk of false negative results due to thepresence of variants in the viral targets of the assay, lowlevels of virus in the specimen and co- infection withRespiratory Syncytial Virus. 02/03/2025 2:54 PM EST 02/03/2025 2:57 PM EST Generic External Data Provider LAB MICROBIOLOGY - GENERAL ORDERABLES Final Result Performing Organization Address City/State/[facility] Co de Phone Number [facility] [address] [place] [phone] * COVID-19 ID NOW (DASILVA) (02/03/2025 2:54 PM EST) IDNOW SERIAL# [id number] [facility] COVID-19 TEST Negative Negative [facility] COVID-19 NOTE See Note [facility] Comment: Results are for the identification of SARS-CoV2 RNA. TheSARS-CoV2 RNA is generally detectable in respiratory samplesduring the acute phase of infection. Positive results areindicative of the presence of SARS-CoV-2 RNA; clinicalcorrelation with patient history and other diagnosticinformation is necessary to determine patient infectionstatus. Positive results do not rule out bacterial infectionor co- infection with other viruses.Testing facilities within the [facility] and [facility] are required to report all positive results tothe appropriate public health authorities.Negative results should be treated as presumptive and, ifinconsistent with clinical signs and symptoms or necessaryfor patient management, should be tested with differentauthorized or cleared molecular tests. Negative results donot preclude SARS-CoV2 RNA infection and should not be usedas the sole basis for patient management decisions. Negativeresults should be considered in the context of a patient'srecent exposures, history and the presence of clinical signsand symptoms consistent with COVID-19.This test has been authorized by the FDA under an EmergencyUse Authorization (EUA) for use by authorized laboratories.Testing performed on the Copiny ID NOW utilizing NAAT. 02/03/2025 2:54 PM EST 02/03/2025 2:57 PM EST us Generic External Data Provider LAB MOLECULAR MARIO GNOSTICS ORDERABLES Final Result [facility] [address] [place] [phone] * (ABNORMAL) CBC auto differential (02/03/2025 2:54 PM EST) Only the most recent of2 resultswithin the time period is included. White Blood Count 13.4(H) 4.8 - 10.8 X10*3/uL [facility] Red Blood Count 4.97 4.60 - 5.80 X10*6/uL [facility] Hemoglobin 15.8 14.0 - 18.0 g/dl [facility] Hematocrit 44.8 42.0 - 52.0 % [facility] Mean Corpuscular Volume 90.1 80.0 - 98.0 fL [facility] Mean Corpuscular Hemoglobin 31.8 27.0 - 33.0 pg [facility] Mean Corpuscular HGB Conc 35.3 31.0 - 36.0 g/dl [facility] Red Cell Distribution Width 11.9 11.0 - 16.0 % [facility] Platelet Count 404(H) 160 - 400 X10*3/uL [facility] Mean Platelet Volume 9.9 9.4 - 12.4 fL [facility] Neutrophils Percent Auto 70.6 45 - 73 % [facility] Imm Gran Pct Auto 1.9(H) 0.0 - 0.4 % [facility] Lymphocytes Percent Auto 17.6(L) 20 - 40 % [facility] Monocytes Percent Auto 8.2 2 - 11 % [facility] Eosinophils Percent Auto 1.3 0 - 4 % [facility] Basophils Percent Auto 0.4 0 - 2 % [facility] NRBC Pct Auto 0.0 0.0 - 0.2 /100WBC [facility] Neutrophils Absolute Auto 9.5(H) 2.0 - 8.3 x10*3/uL [facility] Imm Gran Abs Auto 0.25(H) 0.00 - 0.03 X10*3/uL [facility] Lymphocytes Absolute Auto 2.4 1.2 - 4.9 X10*3/uL [facility] Monocytes Absolute Auto 1.1 0.1 - 1.2 X10*3/uL [facility] Eosinophils Absolute Auto 0.2 0.0 - 0.4 X10*3/uL [facility] Basophils Absolute Auto 0.1 0.0 - 0.2 X10*3/uL [facility] NRBC Abs Auto 0.000 0.0 - 0.012 X10*3/uL [facility] 02/03/2025 2:54 PM EST 02/03/2025 2:57 PM EST us Generic External Data Provider LAB BLOOD ORDERAB LES Final Result [facility] [address] [place] [phone] [phone] * (ABNORMAL) Comprehensive Metabolic Panel (02/03/2025 2:54 PM EST) Sodium 135 135 - 145 mmol/L [facility] Potassium 4.1 3.3 - 5.1 mmol/L [facility] Chloride 102 96 - 108 mmol/L [facility] Carbon Dioxide 23 22 - 29 mmol/L [facility] Anion Gap 14 12 - 20 [facility] Urea Nitrogen (BUN) 13 9 - 16 mg/dL [facility] Creatinine, Serum 0.85 0.5 - 1.4 mg/dL [facility] Creatinine Clr Calc Pharmacy 127.4 [facility] Comment:eGFR (calculated fro m the MDRD study equation) and eCrCl(calculated from the Cockcroft-Gault equation) are based ondifferent parameters and may not yield comparable results.If eCrCl result is absurd, please check patient'sheight/weight. Estimated Glomerular Filt Rate >60 [facility] Comment:Chronic Kidney Disea se: Estimated GFR < 60 mL/min/1.55i4Vkbyzu Kidney Disease: Estimated GFR < 15 mL/min/1.73m2 Glucose 111 60 - 115 mg/dL [facility] Calcium 9.7 8.4 - 10.2 mg/dL [facility] Bilirubin, Total 0.7 0.0 - 1.0 mg/dL [facility] Aspartate Amino Transferase 40(H) 5 - 37 U/L [facility] Alanine Aminotransferase 85(H) 0 - 40 U/L [facility] Total Protein 7.7 6.5 - 8.0 g/dL [facility] Albumin Level 4.8 3.5 - 5.0 g/dL [facility] Alkaline Phosphatase 69 39 - 117 U/L [facility] 02/03/2025 2:54 PM EST 02/03/2025 2:57 PM EST us Generic External Data Provider LAB BLOOD ORDERAB LES Final Result [facility] [address] [place] [phone] [phone] * Vitamin B12 (Cobalamin) and Folate Panel, Serum (01/20/2025 2:15 PM EDT) Vitamin B12 475 200 - 900 pg/mL [facility] Comment:NORMAL 200-900 PG/ML INDETERMINATE 160-199 PG/ML DEFICIENT < 160 PG/ML Folate 14.7 > or = 4.0 ng/mL [facility] Comment:Reference Values:> o r = 4.0 ng/mL< 4.0 ng/mL suggests folate deficiency Methotrexate, aminopterin and folinic acid(leucovorin) are chemotherapeutic agents whose molecularstructures are similar to folate; therefore, the Architectfolate assay cannot be used for patients using these drugs. Blood 01/20/2025 2:15 PM EDT 01/20/2025 4:05 PM EDT [facility] LAB BLOOD ORDERABLES Final Resu lt Performing Organization Address [facility]/ZIP Co de Phone Number [facility] [address] [place] [phone] * TSH W/Reflex to FT4 (01/20/2025 2:15 PM EDT) Pathologist [facility] TSH reflex Free T4 0.58 0.32 - 4.0 uIU/mL [facility] Blood Venous blood specimen / Unknown 01/20/2025 2:15 PM EDT 01/20/2025 4:05 PM EDT [facility] LAB BLOOD ORDERABLES Final Resu lt Performing Organization Address City/[facility]/ZIP Co de Phone Number [facility] [address] [place] [phone] * Lipid Panel, Standard (05/24/2023 11:09 AM EST) Pathologist [facility] Triglycerides 117 <150 mg/dL [facility] Comment:Desirable Triglyceri de: less than 150 mg/dLBorderline High Triglyceride 150-199 mg/dLHigh Triglyceride: 200-499 mg/dLVery High Triglyceride: greater than or equal to 5OO mg/dL Cholesterol 143 <200 mg/dL [facility] Comment:Desirable Cholestero l: less than 200 mg/dLBorderline High Cholesterol: 200-239 mg/dLHigh Cholesterol: greater than 239 mg/dL LDL Cholesterol Calculated 74 <100 mg/dL [facility] Comment:Desirable LDL: less than 100 mg/dLNear Optimal/Above Optimal LDL: 110- 129 mg/dLBorderline High LDL: 130-159 mg/dLHigh LDL: 160-189 mg/dLVery High LDL: greater than or equal to 190 mg/dL HDL Cholesterol 46 >40 mg/dL [facility] Comment:Desirable HDL: great er than 40 mg/dL Note: This HDL assay may give artificially low results in patients with liver disease. Blood Venous blood specimen / Unknown 05/24/2023 11:09 AM EST 05/24/2023 11:09 AM EST [facility] BLOOD ORDERABLES Final Resu lt Performing Organization Address [facility]/ZIP Co de Phone Number [facility] [address] [place] [phone] * Hepatitis Panel, General (04/15/2023 10:28 AM EST) Hepatitis A IgM Nonreactive Nonreactive [facility] Comment:IgM antibodies to TOURE V not detected; does not exclude earlyacute or recovered HAV infection. ~Hepatitis B Surface Antibody NONREACTIVE Nonreactive [facility] Comment:Nonreactive: < 8.00 mIU/mL Hepatitis B Core Antibody Nonreactive Nonreactive [facility] Hepatitis C Antibody Nonreactive Nonreactive [facility] Comment:Antibodies to HCV no t detected; does not exclude early acuteHCV infection. Hepatitis B Surface Ag Negative Negative [facility] Blood 04/15/2023 10:2 8 AM EST 04/15/2023 10:28 AM EST Bhumika Melendez [employer] LAB BLOOD ORDERABLES Final Resu lt Performing Organization Address City/[facility]/ZIP Co de Phone Number [facility] [address] [place] [phone] * HIV-1/2 Antigen and Antibodies, Fourth Generation, with Reflexes (04/15/2023 10:28 AM EST) HIV AB/AG Nonreactive Nonreactive [facility] Comment:HIV-1 p24 Ag and/or HIV-1/HIV-2 Ab not detected.A test result that is nonreactive does not exclude thepossibility of exposure to or infection with HIV-1 and/orHIV-2. Nonreactive results in this assay for individualswith prior exposure to HIV-1 and/or HIV-2 may be due toantigen and antibody levels that are below the limit ofdetection of this assay.The [employer] HIV Ag/Ab Combo assay result andsupplemental assay results should be interpreted inconjunction with the patient's clinical presentation,history and other laboratory results. If the results areinconsistent with clinical evidence, additional testing issuggested to confirm the result. Blood Venous blood specimen / Unknown 04/15/2023 10:28 AM EST 04/15/2023 10:28 AM EST Bhumika Melendez NP LAB BLOOD ORDERABLES Final Resu lt [facility] [address] [place] [phone] * Hemoglobin A1c (05/11/2022 2:34 PM EST) Hemoglobin A1c 4.9 % [facility] Comment:Hemoglobin A1C Refer ence Range Adults: 4.8 - 6.0 % Non diabetic: < 6.0 % Goal: < 7.0 %Additional Action Suggested: > 8.0 %Note: Hemoglobin A1c results are invalid for patients with abnormal amounts of HbF. Blood transfusions may impact the HbA1c concentration in the patient sample. Estimated Average Glucose 94 mg/dL [facility] Comment:eAG = Estimated ave rage glucose which is %A1C expressed asaverage glucose, using the formula of the Y4T-KukdsyrNckkgfs Glucose study (ADAG), Diabetes Care, Vol.31,#8,2007 05/11/2022 2:34 PM EST 05/11/2022 7:38 PM EST us [facility] External Provider LAB BLO OD ORDERABLES Final Result [facility] [address] [place] [phone] from Last 3 Months or Most Recently Relevant to Health Maintenance Insurance [address] [address] C3 DENTAL - HSN PARTIAL (MEDICAID) Care Teams Manager Athletics Relationship Specialty Start Date End Date Bhumika Melendez NP [address] [place] [phone] PCP - General Family Medicine 04/14/23
--- OUTSIDE RECORDS SUMMARY | 2025-03-31 08:59 | XMS_ITS | Encounter Summary ---
Author Organization [employer] [facility] Address [address] [place] [address] 7t [place] [address] Care Team Providers Care Clinical Research Nurse Coordinator Name Role Phone Bhumika Melendez NP Primary Care Provider [phone] Encounter Details Date Type Department Care Team (Latest Contact Info) Description 03/11/2021 Abstract [facility] CONVERSIONS Dental, Provider, DDS Social History [...] Description 07/03/2025 8:00 AM EDT Office Visit [facility] ADULT DENTAL [address] [place] [address] Warren, Chela [address] [place] [address] documented as of this encounter Visit Diagnoses Not on filedocumented in this encounter Care Teams Clinical Research Nurse Coordinator Relationship Specialty Start Date End Date Bhumika Melendez NP [address] [place] [address] PCP - General Family Medicine 04/14/23 documented as of this encounter
--- OUTSIDE RECORDS SUMMARY | 2025-03-31 08:59 | XMS_ITS | Clinical Summary ---
Author Organization [facility] Address [address] [place] [address] Care Team Providers Care Convention Planner Name Role Phone Pcp, No Primary Care [...] 2) 2024 Influenza Vaccine 11/01/2024 12/13/2023, 01/26/2023 COVID-19 Vaccine (3 - season) 2024, 04/14/2023 RSV Vaccine 50 years and old er and Patients (1 - 1-dose 75+ series) 2049 HIV Screening Completed 04/15/2023 Advance Directives * Full Code (Latest Code Status on File) Date Activated Date Inactivated Comments 10/20/2024 10:54 PM Question Answer Comments Decision Thoroughly Discussed with: Patient Care Teams Convention Planner Relationship Specialty Start Date End Date Pcp, No PCP - General General Medicine 10/20/24
--- OUTSIDE RECORDS SUMMARY | 2025-03-31 08:59 | XMS_ITS | Encounter Summary ---
Author Organization [employer] Address [address] [place] [address] 7t [place] [address] Care Team Providers Care Transport Technician Name Role Phone Bhumika Melendez NP Primary Care Provider [phone] Encounter Details Date Type Department Care Team (Latest Contact Info) Description 02/27/2025 Results Follow-Up [facility] MEDICINE [address] [place] [address] Bhumika Melendez NP [address] [place] [address] CBC auto differential, Influenza A B2 ID NOW ([place]), Comprehensive Metabolic Panel, Additional followed-up results: 2 Social History Tobacco Use Types Packs/Day Years [...] Description 07/03/2025 8:00 AM EDT Office Visit [facility] ADULT DENTAL [address] [place] [address] Warren, Chela [address] [place] [address] documented as of this encounter Visit Diagnoses Not on filedocumented in this encounter Additional Health Concerns Assessment Noted Time PHQ-9 Depression Total Score: 11 025 10:04 AM EDT documented as of this encounter Care Teams Transport Technician Relationship Specialty Start Date End Date Bhumika Melendez NP [address] [place] [address] PCP - General Family Medicine 04/14/23 documented as of this encounter
--- OUTSIDE RECORDS SUMMARY | 2025-03-31 08:59 | XMS_ITS | Encounter Summary ---
Author Organization [employer] Address [address] [place] [address] 7t [place] [address] Care Team Providers Care Business Administrator Name Role Phone Bhumika Melendez NP Primary Care Provider [phone] Reason for Visit * Reason Onset Date Comments Letter for School/Work 08/04/2023 Encounter Details Date Type Department Care Team ([facility] st Contact Info) Description 08/04/2023 Telephone [facility] MEDICINE [address] [place] [address] Bhumika Melendez NP [address] [place] [address] Letter for School/Work Social History Tobacco Use [...] already received letter/ pt. Advise to call [facility] if any questions or concerns. Pt. Verbally greed and understood. * Telephone Encounter - Ethan Pina - 08/08/2023 11:13 AM EDT Tc from pt returning call. * Telephone Encounter - Jose Lora RN - 08/08/2023 9:40 AM EDT T/C to pt. For below message, No answer. LVM to call back on [phone]. * Telephone Encounter - Jose Lora RN - 08/04/2023 3:43 PM EDT Please review and advise for below request. 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 States job is okay, only needs letter. Pt returns to work Monday (08/06) Any questions, contact pt at [phone] documented in this encounter Plan of Treatment Upcoming Encounters Date Type Department Care Team (Late st Contact Info) Description 07/03/2025 8:00 AM EDT Office Visit [facility] ADULT DENTAL [address] [place] [address] Chela Kelley [address] [place] [address] documented as of this encounter Visit Diagnoses Not on filedocumented in this encounter Additional Health Concerns Assessment Noted Time PHQ-9 Depression Total Score: 0 04/14/19 24 1:12 PM EST documented as of this encounter Care Teams Business Administrator Relationship Specialty Start Date End Date Bhumika Melendez NP [address] [place] [address] PCP - General Family Medicine 04/14/23 documented as of this encounter
--- OUTSIDE RECORDS SUMMARY | 2025-03-31 08:59 | XMS_ITS | Encounter Summary ---
Author Organization [employer] Address [address] [place] [address] 7t [place] [address] Care Team Providers Care Refrigeration Technician Name Role Phone Bhumika Melendez NP Primary Care Provider [phone] Encounter Details Date Type Department Care Team (Late st Contact Info) Description 04/28/2022 Abstract [facility] ADULT DENTAL [address] [place] [address] John Culver DDS [address] [place] [address] Social History Tobacco Use Types Packs/Day Years [...] Description 07/03/2025 8:00 AM EDT Office Visit [facility] ADULT DENTAL [address] [place] [address] Chela Kelley [address] [place] [address] documented as of this encounter Visit Diagnoses Not on filedocumented in this encounter Care Teams Refrigeration Technician Relationship Specialty Start Date End Date Bhumika Melendez NP [address] [place] [address] PCP - General Family Medicine 04/14/23 documented as of this encounter
--- OUTSIDE RECORDS SUMMARY | 2025-03-31 08:59 | XMS_ITS | Encounter Summary ---
Author Organization [employer] Address [address] [place] [address] 7t [place] [address] Care Team Providers Care Chemistry Laboratory Technician Name Role Phone Bhumika Melendez NP Primary Care Provider [phone] Encounter Details Date Type Department Care Team ([facility] Contact Info) Description 03/08/2024 Telephone [facility] MEDICINE [address] [place] [address] Bhumika Melendez NP [address] [place] [address] Social History Tobacco Use Types Packs/Day Years [...] Description 07/03/2025 8:00 AM EDT Office Visit [facility] ADULT DENTAL [address] [place] [address] Warren Chela [address] [place] [address] documented as of this encounter Visit Diagnoses Not on filedocumented in this encounter Additional Health Concerns Assessment Noted Time PHQ-9 Depression Total Score: 0 04/14/19 24 1:12 PM EST documented as of this encounter Care Teams Chemistry Laboratory Technician Relationship Specialty Start Date End Date Bhumika Melendez NP [address] [place] [address] PCP - General Family Medicine 04/14/23 documented as of this encounter
--- OUTSIDE RECORDS SUMMARY | 2025-03-31 08:59 | XMS_ITS | Clinical Summary ---
Author Organization [facility] Address [address] [place] [address] Phone Care Team Providers Care Vamp Seamer Name Role Phone Manishmarisol Bhumika Chiragcorina METALLURGY TEACHER Primary Care Provider + Allergies No known [...] topic Medical Devices Not on file Insurance [facility] NON NSPG PCP [employer] NET PARTIAL [facility] NON NSPG PCP [employer] [place] [address] [place] [address] NON NSPG PCP [employer] Member Subscriber Plan / Payer (Ef fective 2023-Present) Name:Kateryna Raoaristo Relation to Subscriber:Self Name:JalenSarath Payer ID:[id number] Type:Hello! Messenger Address: [address] PARTIAL [facility] NON NSPG PCP [employer] NET PARTIAL NON NSPG PCP [employer] [place] [address] [place] [address] NON NSPG PCP [employer] [address] SAFETY NET PARTIAL Advance Directives For more information, please contact: [phone] (9AM - 5PM [facility], Monday-Monday) * Full Code (Latest Code Status on File) Date Activated Date Inactivated Comments 03/02/2024 9:38 PM Question Answer Comments Code Status Confirmed With: Patient Code Status Communicated To: Inpatient Attending Care Teams Vamp Seamer Relationship Specialty Start Date End Date Bhumika Melendez NP [address] [place] [address] PCP - General Nurse Practitioner 03/02/24 Additional Source Comments The information contained in this document represents components of the legal health record. It is not the complete legal health record.[facility]
--- OUTSIDE RECORDS SUMMARY | 2025-03-31 08:59 | XMS_ITS | Encounter Summary ---
Author Organization [facility] Address [address] [place] [address] Phone Care Team Providers Care Grocery Clerk Marking Name Role Phone Bhumika Melendez MULTIMEDIA PRODUCER Primary Care Provider + Encounter Details Date Type Department Care Team (Late st Contact Info) Description 03/02/2024 Procedure [facility], Ct Scan - [address] [address] Social History Tobacco Use Types Packs/Day Years [...] PM EST documented as of this encounter Plan of Treatment Not on file documented as of this encounter Visit Diagnoses Not on filedocumented in this encounter Additional Health Concerns Infection Onset Date Last Indicated Resolved Time CoV-Risk Comment:Per note documentation 03/02/2024 03/02/2024 4 7:27 AM EST documented as of this encounter Care Teams Grocery Clerk Marking Relationship Specialty Start Date End Date Bhumika Melendez NP [address] [place] [address] PCP - General Nurse Practitioner 03/02/24 documented as of this encounter Additional Source Comments The information contained in this document represents components of the legal health record. It is not the complete legal health record.[facility]
--- OUTSIDE RECORDS SUMMARY | 2025-03-31 08:59 | XMS_ITS | Encounter Summary ---
Author Organization [employer] Address [address] [place] [address] [address] [place] [address] Care Team Providers Care Oven Heater Helper Name Role Phone Bhumika Melendez NP Primary Care Provider [phone] Reason for Visit * Reason Onset Date Comments Hospital Follow-up 03/07/2024 Encounter Details Date Type Department Care Team ([facility] st Contact Info) Description 03/07/2024 Telephone [facility] MEDICINE [address] [place] [address] Bhumika Melendez NP [address] [place] [address] Hospital Follow-up Social History Tobacco Use Types [...] from pt requesting a HDF appt. Hospital: [facility] Date of admission: 02/26/2024 Discharge date: 03/04/2025 Diagnosed: bowel obstruction *Send message to [place] Clinical Care Coordinators documented in this encounter Plan of Treatment Upcoming Encounters Date Type Department Care Team (Late st Contact Info) Description 07/03/2025 8:00 AM EDT Office Visit [facility] ADULT DENTAL [address] [place] [address] Warren, Chela [address] [place] [address] documented as of this encounter Visit Diagnoses Not on filedocumented in this encounter Additional Health Concerns Assessment Noted Time PHQ-9 Depression Total Score: 0 04/14/19 24 1:12 PM EST documented as of this encounter Care Teams Oven Heater Helper Relationship Specialty Start Date End Date Bhumika Melendez NP [address] [place] [address] PCP - General Family Medicine 04/14/23 documented as of this encounter
[2025-03-31 09:05] VITALS: BP 144/99; PULSE 88; RESP 18; TEMP 36.3; O2SAT 94
== END 2025-03-31 09:07 | disposition home or self-care (01) ==
PROVIDERS: Emergency Provider Emergency Medicine; PCP Nurse Practitioner
DX: S06.0X0A Concussion without loss of consciousness, initial encounter (principal); S16.1XXA Strain of muscle, fascia and tendon at neck level, initial encounter; V43.52XA Car driver injured in collision with other type car in traffic accident, initial encounter; Y93.9 Activity, unspecified; Y92.410 Unspecified street and highway as the place of occurrence of the external cause; Y99.8 Other external cause status
CPT/HCPCS: 99282